=== PATIENT | male | born 1985 | race Caucasian/White ===

== ENCOUNTER 2017-02-26 08:25 | Emergency (ER) | payer OTHER ==
[~2017-02-26] VITALS: Ht 157.5 cm; Wt 36.3 kg
[~2017-02-26 08:25] MED LIST: AMOX-CLAV600 MG/5 M PO; BISAC-EVAC10 M1 PR; CARBAMAZEPINE200 M2 PO; CARBAMAZEPINE200 M6 PO; DEPAKOTE SPRIN125 M1 PO; DIVALPROEX SOD125 MG PO
--- NOTE | 2017-02-26 09:12 | ED GI/GU/ABDOMINAL COMPLAINT ---
History of Present Illness General Chief Complaint: General Adult Stated Complaint: GROIN PAIN/ABCESS Source: patient Exam Limitations: physical impairment (NONVERBAL) Vital Signs & Intake/Output Vital Signs & Intake/Output Vital Signs Date Time Temp Pulse Resp B/P B/P Pulse O2 O2 Flow FiO2 Mean Ox Delivery Rate 02/26 1703 97.9 88 18 94/68 98 Room Air 02/26 1542 98.0 90 18 96/74 99 Room Air 02/26 1406 97.8 99 20 99/62 100 Room Air 02/26 1122 97.9 101 20 92/58 98 Room Air Allergies Coded Allergies: NO KNOWN ALLERGIES (12/22/15) Reconcile Medications Carbamazepine 200 MG CPMP.12HR 2 CAP PO BID seizure (Reported) Ciprofloxacin (Cipro) 500 MG/5 ML JANET.MC.REC 5 ML PO BID UTI Divalproex Sodium (Depakote Sprinkle) 125 MG CAP.SPRINK 7 CAP PO TID seizure (Reported) Triage Note: PT TO TRIAGE VIA WHEELCHAIR WITH HIS MOTHER, PT IS NON VERBAL AT BASELINE AND HISTORY OF CP, NON STATES THAT PT STRAINS TO MOVE HIS BOWELS AND THIS AM SHE NOTED EGG SIZE LUMP IN PTS L SIDE GROIN, COULD NOT OBTAIN VITALS BESIDES TEMP DUE TO PT PULLING ARMS AWAY Triage Nurses Notes Reviewed? yes Onset: Abrupt Duration: unknown duration Timing: recent history Radiation: no radiation No Modifying Factors: none HPI: 31-year-old male comes into the emergency room for further evaluation of swelling to left groin area. Patient is nonverbal. History of MR and cerebral palsy. He does not offer any information. Mom was changing his diaper today when she noticed some swelling to his left groin. He reports that he has been making faces recently that he has been in pain she noticed since Sunday. Mom does not remember noticing this before. Denies any other associated symptoms. (Lul Garcia) Past History Travel History Traveled to [place] past 21 day No Medical History Any Pertinent Medical History? see below for history Neurological: seizure, CEREBRAL PALSY MR Mental retardation EENT: NONE Cardiovascular: NONE Respiratory: NONE Gastrointestinal: NONE Hepatic: NONE Renal: NONE Musculoskeletal: NONE Psychiatric: NONE Endocrine: NONE Blood Disorders: NONE Cancer(s): NONE SPORTS ATTORNEY/Reproductive: NONE History of MRSA: No History of VRE: No History of CDIFF: No Surgical History Surgical History: non-contributory Psychosocial History Who do you live with Mother Services at Home None What is your primary language Yakut Tobacco Use: Never used ETOH Use: denies use Illicit Drug Use: denies illicit drug use Family History Hx Contributory? No (Lul Garcia) Review of Systems Review of Systems Constitutional: Reports: no symptoms. EENTM: Reports: no symptoms. Respiratory: Reports: no symptoms. Cardiovascular: Reports: no symptoms. GI: Reports: no symptoms. Genitourinary: Reports: see HPI. Musculoskeletal: Reports: no symptoms. Skin: Reports: no symptoms. Neurological/Psychological: Reports: no symptoms. Hematologic/Endocrine: Reports: no symptoms. Immunologic/Allergic: Reports: no symptoms. All Other Systems: Reviewed and Negative (Lul Garcia) Physical Exam Physical Exam General Appearance: alert, awake Head: atraumatic Eyes: Bilateral: normal appearance. Ears, Nose, Throat, Mouth: moist mucous membrane Neck: normal inspection Respiratory: no respiratory distress Gastrointestinal: soft, PALPABLE MASS LEFT GROIN, FREE FLOATING, RIGHT TESTICLE IS SWOLLEN,NO PALPABLE LEFT TESTICLE IN SCROTAL SAC, Back: decreased range of motion Extremities: normal range of motion Neurologic/Psych: awake, alert Skin: intact, normal color Core Measures ACS in differential dx? No Sepsis Present: No Sepsis Focused Exam Completed? No (Lul Garcia) Progress Differential Diagnosis: testicular torsion, ureterolithiasis, urinary retention, urethritis, UTI/pyelo Plan of Care: Orders Procedure Date/time Status CULTURE,URINE 02/26 1625 Active URINALYSIS 02/26 09 Complete COMPREHENSIVE METABOLIC PANEL 02/26 0909 Complete CBC WITHOUT DIFFERENTIAL 02/26 0909 Complete Current Medications Sig/Leah Start time Last Medication Dose Stop Time Status Admin Ceftriaxone Sodium 1,000 MG ONCE ONE 02/26 1630 CANr (Rocephin) 02/26 1631 Laboratory Tests 02/26/17 1621: Urine Color TATY, Urine Clarity HAZY H, Urine pH 6.5, Ur Specific [place] 1.025, Urine Protein 100 H, Urine Ketones 15 H, Urine Nitrite POS H, Urine Bilirubin NEG@ICTO, Urine Urobilinogen 1.0, Ur Leukocyte Esterase NEG, Ur Microscopic SEDIMENT EXAMINED, Urine RBC 10-15 H, Urine WBC 3-5 H, Ur Epithelial Cells MOD H, Urine Bacteria MOD H, Urine Mucus MOD H, Urine Hemoglobin MOD H, Urine Glucose NEG 02/26/17 1032: Anion Gap 14, Estimated GFR > 60, BUN/Creatinine Ratio 36.0 H, Glucose 82, Calcium 9.7, Total Bilirubin 0.3, AST 19, ALT 29, Alkaline Phosphatase 74, Total Protein 6.4, Albumin 3.6, Globulin 2.8, Albumin/Globulin Ratio 1.3, CBC w Diff NO MAN DIFF REQ, RBC 3.32 L, MCV 100.5 H, MCH 33.7 H, RDW 13.6, MPV 10.6 H, Gran % 68.2, Lymphocytes % 22.4, Monocytes % 7.5, Eosinophils % 1.5, Basophils % 0.4, Absolute Granulocytes 4.0, Absolute Lymphocytes 1.3, Absolute Monocytes 0.4 , Absolute Eosinophils 0.1, Absolute Basophils 0, PUBS MCHC 33.5 Microbiology 02/26 1621 URINE ROUT: Urine Culture - RECD Diagnostic Imaging: Viewed by Me: Ultrasound. Discussed w/RAD: Ultrasound. Radiology Impression: PATIENT: CHANI DUBON PRESENT AGE: 31 PATIENT ACCOUNT NO: [id number] : 87 LOCATION: [facility] ORDERING PHYSICIAN: Lul LEBRON SERVICE DATE: 02/26/17 EXAM TYPE: US - US -TESTICULAR EXAMINATION: US SCROTUM CLINICAL INFORMATION: Rule out testicular torsion. Left testes high riding in groin. Swollen. High suspicion. COMPARISON: None TECHNIQUE: A sonogram of the scrotum was performed assessing moreno-scale appearance and color Doppler flow. Spectral analysis and Doppler interrogation was performed. FINDINGS: RIGHT: Right testicle measures 7.2 x 4.5 x 4.8 cm, volume 110.4 mL. The parenchymal echotexture is markedly heterogeneous with diffusely increased flow. There are more confluent rounded areas of hypoechogenicity without associated Doppler flow. Right epididymal head could not be seen. No hydrocele or varicocele is demonstrated. LEFT: Left testicle measures 4.5 x 1.7 x 2.8 cm, volume 15.2 mL. Parenchymal echotexture is normal. No focal testicular parenchymal lesions are visualized. Normal symmetric intratesticular flow is visualized. Left epididymal head is normal in size. No left hydrocele or varicocele is seen. IMPRESSION: 1. Enlarged right testis with heterogeneous echotexture and diffusely increased areas of Doppler flow. Some hypoechoic areas are also present without associated Doppler flow. The findings are concerning for orchitis. However, recent testicular torsion with subsequent detorsion with areas of infarction remains a possibility. A follow-up ultrasound at a later time is recommended. 2. Right epididymal head was not well seen. 3. Left testis is within normal limits. This critical result was discussed with Lul Malave on 02/26/2017 11:01 AM, and it was ascertained that the content and urgency of the report was understood at the time of direct communication. DICTATED BY: Angella Miles MD DATE/TIME DICTATED:02/26/171037 ANALYST SALES:ELIZABETH DATE/TIME TRANSCRIBED:02/26/171037 CONFIDENTIAL, DO NOT COPY WITHOUT APPROPRIATE AUTHORIZATION. <Electronically signed in Other Vendor System> SIGNED BY: Angella Miles MD 02/26/17 1106 Initial ED EKG: none Comments: 02/27/16 Patient was seen by the urologist here in the emergency room. Patient will be discharged on oral antibiotics. Patient was discussed with Dr. VAUGHN. (Ananda LEBRON,Lul) Departure Departure Disposition: HOME OR SELF CARE Condition: Stable Clinical Impression Primary Impression: Orchitis Referrals: Jolynn MCCOY,Casi Walton APRN (PCP/Family) Additional Instructions: Take ciprofloxacin as prescribed. Follow-up with urologist. Return if any concerns worsening symptoms. Please go over all results of today's visit with your primary care doctor. Contact your primary care doctor to let them know you were here in the emergency room. There may be nonspecific findings which may not be related to your visit today here in the emergency room but may require further evaluation and chronic monitoring by your primary care doctor. If you had a laceration today the chance of foreign body always remains. You should follow-up with your primary care doctor for recheck in 3-5 days for a wound check. If you had an x-ray done there is a chance that a fracture could have been missed on initial read and you should follow-up with your primary care doctor for repeat x-rays if symptoms persist. If your blood pressure was elevated here in the emergency room please have rechecked by [facility] primary care doctor within the next 48. If you were prescribed a narcotic here in the emergency room or any type of controlled substances you're not allowed to drive while taking this medication or operate any type of heavy machinery. Narcotics can make you feel lightheaded dizziness nausea and can cause constipation. You may need to berry picker machine operator a stool softener. Thank you for choosing [facility] emergency room. Please return to the emergency room immediately if you have any other concerns worsening of symptoms. Departure Forms: Customer Survey General Discharge Information Prescriptions: Current Visit Scripts Ciprofloxacin (Cipro) 5 ML PO BID #100 ML (Lul Garcia) PA/PROCUREMENT INTERN Co-Sign Statement Statement: ED Attending supervision documentation- [] I saw and evaluated the patient. I have also reviewed all the pertinent lab results and diagnostic results. I agree with the findings and the plan of care as documented in the PA's/PROCUREMENT INTERN's documentation. [X] I have reviewed the ED Record and agree with the PA's/PROCUREMENT INTERN's documentation. [] Additions or exceptions (if any) to the PAs/PROCUREMENT INTERN's note and plan are summarized below: [] (Yosvany MCCOY,Marcie) ED Attending Observation Initial Observation Note: I have seen and personally examined CHANI DUBON on 02/26/17 at 1742. I agree with the current emergency department documentation. The disposition (admission or discharge) is uncertain at this time, he needs a period of observation for the following reason(s): The ED Nurse caring for this patient has been personally informed as to what the patient is being observed for. (Lul Garcia)
[2017-02-26 10:42] LABS: ABSOLUTE BASOPHIL COUNT 0 /CUMM (0.0-0.2); ABSOLUTE EOSINOPHIL COUNT 0.1 /CUMM (0.0-0.7); ABSOLUTE LYMPH COUNT 1.3 /CUMM (1.2-3.4); ABSOLUTE MONOCYTE COUNT 0.4 /CUMM (0.10-0.60); BASOPHIL % 0.4 % (0.0-2.0); EOSINOPHIL % 1.5 % (0-5); GRANULOCYTE % 68.2 % (42.2-75.2); HEMATOCRIT 33.3 % (42-52); MEAN CORPUSCULAR HGB 33.7 PG (27.0-31.0); MEAN CORPUSCULAR HGB CONC 33.5 G/DL (33.0-37.0); MEAN CORPUSCULAR VOLUME 100.5 FL (80.0-94.0); MEAN PLATELET VOLUME 10.6 FL (7.4-10.4); PLATELET COUNT 149 /CUMM (130-400); RBC DISTRIBUTION WIDTH 13.6 % (11.5-14.5); RED BLOOD CELL CT 3.32 /CUMM (4.70-6.10); WHITE BLOOD CELL COUNT 5.9 /CUMM (4.8-10.8)
--- NOTE | 2017-02-26 11:06 | ULTRASOUND REPORT ---
EXAMINATION: US SCROTUM CLINICAL INFORMATION: Rule out testicular torsion. Left testes high riding in groin. Swollen. High suspicion. COMPARISON: None TECHNIQUE: A sonogram of the scrotum was performed assessing moreno-scale appearance and color Doppler flow. Spectral analysis and Doppler interrogation was performed. FINDINGS: RIGHT: Right testicle measures 7.2 x 4.5 x 4.8 cm, volume 110.4 mL. The parenchymal echotexture is markedly heterogeneous with diffusely increased flow. There are more confluent rounded areas of hypoechogenicity without associated Doppler flow. Right epididymal head could not be seen. No hydrocele or varicocele is demonstrated. LEFT: Left testicle measures 4.5 x 1.7 x 2.8 cm, volume 15.2 mL. Parenchymal echotexture is normal. No focal testicular parenchymal lesions are visualized. Normal symmetric intratesticular flow is visualized. Left epididymal head is normal in size. No left hydrocele or varicocele is seen. IMPRESSION: 1. Enlarged right testis with heterogeneous echotexture and diffusely increased areas of Doppler flow. Some hypoechoic areas are also present without associated Doppler flow. The findings are concerning for orchitis. However, recent testicular torsion with subsequent detorsion with areas of infarction remains a possibility. A follow-up ultrasound at a later time is recommended. 2. Right epididymal head was not well seen. 3. Left testis is within normal limits. This critical result was discussed with Lul Malave on 02/26/2017 11:01 AM, and it was ascertained that the content and urgency of the report was understood at the time of direct communication.
--- NOTE | 2017-02-26 12:11 | Cons- Urology ---
General Information and HPI Consulting Request Date of Consult: 02/26/17 Requested By: ER Reason for Consult: Abnormal R testicle on ultrasound Source of Information: family Exam Limitations: no limitations History of Present Illness: This is a 31 year old, non verbal patient with MR and cerebral paulsy. This morning his mother noted a mass in the L inguinal area. The L hemiscrotum was normal. On presentation the ER exam revealed that the mass in the L inguinal area was the L testicle, which was manipulated into the L carlota scrotum. A scrotal ultrasound showed the L testicle to be normal but the R testicle was enlarged with areas of increased blood flow and areas of decreased flow. The echotexture of the L testicle was patchey. Based on the ultrasound appearance the differential dx was orchitis vs intermittent torsion. Of note, according to the mother he was straining significantly to have a bowel movement recently. Allergies/Medications Allergies: Coded Allergies: NO KNOWN ALLERGIES (12/22/15) Home Med List: Carbamazepine 200 MG CPMP.12HR 2 CAP PO BID seizure (Reported) Divalproex Sodium (Depakote Sprinkle) 125 MG CAP.SPRINK 7 CAP PO TID seizure (Reported) Past History Medical History Neurological: seizure, CEREBRAL PALSY MR Mental retardation EENT: NONE Cardiovascular: NONE Respiratory: NONE Gastrointestinal: NONE Hepatic: NONE Renal: NONE Musculoskeletal: NONE Psychiatric: NONE Endocrine: NONE Blood Disorders: NONE Cancer(s): NONE DIRECTOR SMB SALES/Reproductive: NONE Surgical History Pertinent Surgical History: non-contributory Psychosocial History Who Do You Live With? parent Services at Home: None Primary Language: Indonesian ETOH Use: denies use Illicit Drug Use: denies illicit drug use Functional Ability ADLs Needs Assist: dressing, eating, toileting, bathing. Ambulation: non-ambulatory IADLs Needs Assist: shopping, housework, finances, food prep, telephone, transportation, medication admin. Exam & Diagnostic Data Vital Signs and I&O Vital Signs Date Time Temp Pulse Resp B/P B/P Pulse O2 O2 Flow FiO2 Mean Ox Delivery Rate 02/26 1122 97.9 101 20 92/58 98 Room Air Intake & Output 02/26 1600 02/26 0800 02/26 0000 02/25 1600 02/25 0802/25 0000 Intake Total Output Total Balance Patient 79 lb 15.99 oz Weight Back: No CVA tenderness Abd: soft and nontender Genitalia: condom cath in place. L testicle normal. R testicle enlarged and firm. Epididymis appears posterior and is enlarged and firm Physical Exam: Laboratory Tests 02/26 1032 Chemistry Sodium (137 - 145 mmol/L) 151 H Potassium (3.5 - 5.1 mmol/L) 3.7 Chloride (98 - 107 mmol/L) 109 H Carbon Dioxide (22 - 30 mmol/L) 28 Anion Gap (5 - 16) 14 BUN (9 - 20 mg/dL) 18 Creatinine (0.7 - 1.2 mg/dL) 0.5 L Estimated GFR (>60 ml/min) > 60 BUN/Creatinine Ratio (7 - 25 %) 36.0 H Glucose (65 - 99 mg/dL) 82 Calcium (8.4 - 10.2 mg/dL) 9.7 Total Bilirubin (0.2 - 1.3 mg/dL) 0.3 AST (17 - 59 U/L) 19 ALT (21 - 72 U/L) 29 Alkaline Phosphatase (< 127 U/L) 74 Total Protein (6.3 - 8.2 g/dL) 6.4 Albumin (3.5 - 5.0 g/dL) 3.6 Globulin (1.9 - 4.2 gm/dL) 2.8 Albumin/Globulin Ratio (1.1 - 2.2 %) 1.3 Hematology CBC w Diff NO MAN DIFF REQ WBC (4.8 - 10.8 /CUMM) 5.9 RBC (4.70 - 6.10 /CUMM) 3.32 L Hgb (14.0 - 18.0 G/DL) 11.2 L Hct (42 - 52 %) 33.3 L MCV (80.0 - 94.0 FL) 100.5 H MCH (27.0 - 31.0 PG) 33.7 H RDW (11.5 - 14.5 %) 13.6 Plt Count (130 - 400 /CUMM) 149 MPV (7.4 - 10.4 FL) 10.6 H Gran % (42.2 - 75.2 %) 68.2 Lymphocytes % (20.5 - 51.1 %) 22.4 Monocytes % (1.7 - 9.3 %) 7.5 Eosinophils % (0 - 5 %) 1.5 Basophils % (0.0 - 2.0 %) 0.4 Absolute Granulocytes (1.4 - 6.5 /CUMM) 4.0 Absolute Lymphocytes (1.2 - 3.4 /CUMM) 1.3 Absolute Monocytes (0.10 - 0.60 /CUMM) 0.4 Absolute Eosinophils (0.0 - 0.7 /CUMM) 0.1 Absolute Basophils (0.0 - 0.2 /CUMM) 0 PUBS MCHC (33.0 - 37.0 G/DL) 33.5 Assessment/Plan Assessment/Plan Imp: 1. Normal L testicle 2. Probable R epididymo-orchitis Plan: 1. U/A and C&S 2. OK to send home on po cipro 3. f/u in my office in 2-3 weeks Consult Acknowledgment - Thank you for your consult request.
[2017-02-26] MEDS ORDERED: CIPRO500 MG/51 PO (15:59)
[2017-02-26 17:03] VITALS: BP 94/68
== END 2017-02-26 17:12 ==
LOC: ERH 08:25
PROVIDERS: Physician Assistant Medical
DX: N45.2 Orchitis (principal)
CPT/HCPCS: 81001; 87086; 96372; 96374; J0696

== ENCOUNTER 2017-08-05 16:40 | Inpatient (IN) | payer OTHER ==
[~2017-08-05] VITALS: Ht 154.9 cm; Wt 38.2 kg
[~2017-08-05 16:40] MED LIST changes: +CIPRO500 MG/51 PO
--- NOTE | 2017-08-05 18:47 | ED GENERAL ADULT ---
History of Present Illness General Chief Complaint: General Adult Stated Complaint: PER MOM: FEELS WARM, MOANING,NOT HIMSELF Source: family Exam Limitations: patient non-verbal Vital Signs & Intake/Output Vital Signs & Intake/Output Vital Signs Date Time Temp Pulse Resp B/P B/P Pulse O2 O2 Flow FiO2 Mean Ox Delivery Rate 08/06 2225 90 08/06 2223 100/50 08/06 2213 98.2 110 18 92/51 100 08/06 1435 97.5 64 20 107/66 98 Room Air 08/06 0630 97.3 72 14 96/62 98 Room Air 08/06 0144 97.6 70 14 94/60 99 Room Air ED Intake and Output 08/07 0000 08/06 1200 Intake Total 1760 600 Output Total 850 550 Balance 910 50 Intake, IV 560 600 Intake, Oral 1200 Number 4 Bowel Movements Output, Urine 850 550 Patient 84 lb 2 oz Weight Weight Bed scale Measurement Method Initial labs are consistent with sepsis physiology Allergies Coded Allergies: NO KNOWN ALLERGIES (12/22/15) Reconcile Medications Carbamazepine 200 MG CPMP.12HR 2 CAP PO BID seizure (Reported) Divalproex Sodium (Depakote Sprinkle) 125 MG CAP.SPRINK 7 CAP PO TID seizure (Reported) Triage Note: PT TO ER W/ MOTHER C/C "NOT ACTING HIMSELF". PT WITH HX OF MR, CEREBRAL PALSY AND SEIZURE DO. MOTHER STATES HE IS NON-VERBAL TO BASELINE. MOTHER STATES PATIENT HAS BEEN DROOLING, COUGHING, FEELS WARM AND IS MORE DROWSY THAN USUAL. TEMP 100.7. HAS HAD ASPIRATION PNA IN PAST. Triage Nurses Notes Reviewed? yes Unable To Obtain Hx Due To: patient nonverbal Onset: Gradual Duration: hour(s): Timing: ongoing Severity: moderate No Modifying Factors: none HPI: This is a 31-year-old male with history of cerebral palsy, mental retardation, seizure disorder, presenting to the emergency department with poor p.o. intake and "not acting like himself", according to mother. Patient was at a respite since , was reported to have vomited today and potentially aspirated. Upon arrival, he is febrile to 100.7F and tachycardic to the 130s with a blood pressure in the 100s systolic range. He is a soft, nontender abdomen and diminished breath sounds bilateral bases. According to the mother, patient has had prior aspiration pneumonia events in the past. Patient is nonverbal at baseline and history is provided by mother. (Reed Osuna MD) Past History Travel History Traveled to [place] past 21 day No Medical History Any Pertinent Medical History? see below for history Neurological: seizure, CEREBRAL PALSY MR Mental retardation EENT: NONE Cardiovascular: NONE Respiratory: NONE Gastrointestinal: NONE Hepatic: NONE Renal: NONE Musculoskeletal: NONE Psychiatric: NONE Endocrine: NONE Blood Disorders: NONE Cancer(s): NONE NON GARMENT SEWING MACHINE OPERATOR/Reproductive: NONE History of MRSA: No History of VRE: No History of CDIFF: No Surgical History Surgical History: non-contributory Psychosocial History Who do you live with Mother Services at Home None What is your primary language Bangladeshi Tobacco Use: Never used Family History Hx Contributory? No (Reed Osuna MD) Review of Systems Review of Systems Constitutional: Reports: fever, malaise, weakness. EENTM: Reports: no symptoms. Respiratory: Reports: no symptoms. Cardiovascular: Reports: no symptoms. GI: Reports: vomiting. Genitourinary: Reports: no symptoms. Musculoskeletal: Reports: no symptoms. Skin: Reports: no symptoms. Neurological/Psychological: Reports: no symptoms, see HPI. (Reed Osuna MD) Physical Exam Physical Exam General Appearance: anxious, thin Head: atraumatic, large head, thin face, does not track with eyes Eyes: Bilateral: normal appearance. Ears, Nose, Throat: normal pharynx, normal ENT inspection Neck: normal inspection, supple Respiratory: breath sounds diminished in bilateral bases Cardiovascular: regular rate/rhythm, tachycardia Gastrointestinal: normal bowel sounds, soft, non-tender Rectal: normal exam, stage 1 decub to sacrum Back: normal inspection, normal range of motion Extremities: normal inspection, no edema Neurologic/Psych: awake, alert, non-verbal, moving all extremities, does not follow commands Skin: intact, normal color, warm and moist Core Measures ACS in differential dx? No CVA/TIA Diagnosis: No Sepsis Present: Yes Sepsis Focused Exam Completed? Yes (Reed Osuna MD) Progress Differential Diagnoses I considered the following diagnoses in my evaluation of the patient: Sepsis secondary to aspiration pneumonia, some concern for occult urinary tract infection given chronic incontinence. 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 Low concern for acute intra-abdominal infection at this time given soft, nontender abdomen, however given history of poor appetite and episode of vomiting, will maintain high index of suspicion. Plan of Care: Orders Procedure Date/time Status FOLIC ACID 08/07 599 Active CBC WITHOUT DIFFERENTIAL 08/07 599 Active BASIC ELECTROLYTES PLUS BUN&CR 08/07 599 Active VITAMIN B12 08/07 06 Active Regular Diet 08/06 L Complete Regular Diet 08/06 D Active Coronado, Insertion/Removal/Asses 08/06 1843 Active Seizure Precautions 08/06 1733 Active Change service to 08/06 0812 Active TSH REFLEX 08/06 0733 Complete CORTISOL AM 08/06 0733 Complete CBC WITHOUT DIFFERENTIAL 08/06 599 Complete BASIC ELECTROLYTES PLUS BUN&CR 08/06 599 Complete Precautions 08/06 UNK Active PHARMACY COMMUNICATION FORM 08/06 UNK Active Current Medications Sig/Leah Start time Last Medication Dose Stop Time Status Admin Carbamazepine 400 MG BID 08/06 2100 CAN (Tegretol-XR) Carbamazepine 200 MG Q6H 08/06 2045 AC 08/06 (Tegretol Suspension 2131 100MG Per 5 Ml) Heparin Sodium 5,000 UNIT Q8 08/06 0600 AC 08/06 (Porcine) 2131 Ampicillin Sodium/ 1,500 MG Q6H 08/06 0300 AC 08/06 Sulbactam Sodium 2131 (Unasyn) Sodium Chloride 100 ML (Normal Saline 0.9%) Valproate Sodium 875 MG Q8H 08/06 0200 AC 08/06 (Depacon 500MG/5ML 1724 Inj) Sodium Chloride 50 ML (Normal Saline 50ML Bag) Laboratory Tests 08/06/17 0800: Cortisol AM Sample Cancelled 08/06/17 0733: Anion Gap 8, Estimated GFR > 60, BUN/Creatinine Ratio 25.0, TSH &T3 &Free T4 Intrp 0.920, Cortisol AM Sample 18.7, CBC w Diff MAN DIFF ORDERED, RBC 2.67 L, MCV 99.4 H, MCH 33.3 H, MCHC 33.5, RDW 14.6 H, MPV 10.1, Gran % 72.7, Lymphocytes % 18.7 L, Monocytes % 8.3, Eosinophils % 0.1, Basophils % 0.2, Absolute Granulocytes 5.1, Segmented Neutrophils 42 L, Band Neutrophils 32 H, Absolute Lymphocytes 1.3, Lymphocytes 19 L, Monocytes 7, Absolute Monocytes 0.6 , Absolute Eosinophils 0, Absolute Basophils 0, Platelet Estimate DECREASED, Polychromasia 1+, Basophilic Stippling 1+, Anisocytosis 1+ 08/06/17 0600: TSH &T3 &Free T4 Intrp Cancelled Patient will require broad-spectrum antibiotics, repeat lactate, IV fluids, labs , likely admission for sepsis. No indication for pressors at this time but will frequently reevaluate. Patient defervescence with treatment here, heart rate improves with IV hydration , labs reveal significant bandemia, normal kidney function. No severe metabolic derangements are noted. Chest x-ray is noncontributory as is the urinalysis. Given this, will pursue CT chest abdomen pelvis with IV contrast in search of alternate source. Case discussed with inpatient hospitalist. She agrees that patient will need admission for IV antibiotics and further management, she would like patient to receive 3 boluses of IV fluids here to establish his hemodynamic status in terms of need for higher level of care. SBP is established as appropriate for Gen Med. Will admit to that service. Chest x-ray is consistent with a left lobe pneumonia, will treat as healthcare associated. Initial ED EKG: none (Reed Osuna MD) Departure Departure Time of Disposition: 2303 Disposition: STILL A PATIENT Condition: Stable Clinical Impression Primary Impression: HCAP (healthcare-associated pneumonia) Referrals: Erica Valladares MD (PCP/Family) Departure Forms: Customer Survey General Discharge Information Admission Note Spoke With: Shantell Lopez MD Documentation of Exam: Documentation of any treatments & extenuating circumstances including Concerns Regarding Discharge (functional status, medication knowledge or non-compliance, living conditions, etc.) that warrant an admission rather than observation: IV antibiotics, IV fluids, close monitoring of vital signs, monitoring of urine output, possible central line placement, possible IV pressors. (Reed Osuna MD) Resident Co-Sign Statement Statement: ED Attending supervision documentation- [x] I saw and evaluated the patient. I have also reviewed all the pertinent lab results and diagnostic results. I agree with the findings and the plan of care as documented in the Resident's documentation. [] I have reviewed the ED Record and agree with the Resident's documentation. [] Additions or exceptions (if any) to the Resident's note and plan are summarized below: [] (Keesha MCCOY,Kenny Crespo) Critical Care Note Critical Care Note Critical Care Time: 30-74 min (sepsis resuscitation) (Reed Osuna MD) ED Attending Observation Initial Observation Note: I have seen and personally examined CHANI SAENZ on 08/05/17 at 2305. I agree with the current emergency department documentation. The disposition (admission or discharge) is uncertain at this time, he needs a period of observation for the following reason(s): The ED Nurse caring for this patient has been personally informed as to what the patient is being observed for. (Reed Osuna MD) Initial ED EKG: none Departure Departure Time of Disposition: 2303 Disposition: STILL A PATIENT Condition: Stable Clinical Impression Primary Impression: HCAP (healthcare-associated pneumonia) Referrals: Erica Valladares MD (PCP/Family) Departure Forms: Customer Survey General Discharge Information Admission Note Spoke With: Shantell Lopez MD Documentation of Exam: Documentation of any treatments & extenuating circumstances including Concerns Regarding Discharge (functional status, medication knowledge or non-compliance, living conditions, etc.) that warrant an admission rather than observation: IV antibiotics, IV fluids, close monitoring of vital signs, monitoring of urine output, possible central line placement, possible IV pressors. Critical Care Note Critical Care Note Critical Care Time: 30-74 min (sepsis resuscitation) ED Attending Observation Initial Observation Note: I have seen and personally examined CHANI SAENZ on 08/05/17 at 2305. I agree with the current emergency department documentation. The disposition (admission or discharge) is uncertain at this time, he needs a period of observation for the following reason(s): The ED Nurse caring for this patient has been personally informed as to what the patient is being observed for.
--- NOTE | 2017-08-05 19:05 | RADIOLOGY REPORT ---
EXAMINATION: XR PORTABLE CHEST CLINICAL INFORMATION: Febrile, lethargic. COMPARISON: Chest radiography dated 12/22/2015. TECHNIQUE: Portable frontal view of the chest was obtained. FINDINGS: The lungs are well-expanded. No focal consolidation or pleural effusion. The cardiomediastinal silhouette is within normal limits. No pneumothorax. No engorgement of central pulmonary vessels. No acute osseous abnormalities. IMPRESSION: Unremarkable examination.
[2017-08-05 19:43] LABS: ABSOLUTE BASOPHIL COUNT 0 /CUMM (0.0-0.2); ABSOLUTE EOSINOPHIL COUNT 0 /CUMM (0.0-0.7); ABSOLUTE GRANULOCYTE CT 7.6 /CUMM (1.4-6.5); ABSOLUTE LYMPH COUNT 0.6 /CUMM (1.2-3.4); ABSOLUTE MONOCYTE COUNT 0.9 /CUMM (0.10-0.60); BASOPHIL % 0 % (0.0-2.0); EOSINOPHIL % 0 % (0-5); GRANULOCYTE % 83.4 % (42.2-75.2); HEMATOCRIT 31.1 % (42-52); MEAN CORPUSCULAR HGB 33.3 PG (27.0-31.0); MEAN CORPUSCULAR HGB CONC 33.8 G/DL (33.0-37.0); MEAN CORPUSCULAR VOLUME 98.6 FL (80.0-94.0); MEAN PLATELET VOLUME 9.9 FL (7.4-10.4); PLATELET COUNT 182 /CUMM (130-400); RBC DISTRIBUTION WIDTH 14.4 % (11.5-14.5); RED BLOOD CELL CT 3.16 /CUMM (4.70-6.10); WHITE BLOOD CELL COUNT 9.1 /CUMM (4.8-10.8)
--- NOTE | 2017-08-05 22:32 | CT SCAN REPORT ---
EXAMINATION: CT CHEST, ABDOMEN AND PELVIS WITH CONTRAST CLINICAL INFORMATION: Fever, altered mental status. COMPARISON: CT abdomen and pelvis dated 12/22/2015. TECHNIQUE: Multidetector volumetric imaging was performed from the thoracic inlet through the pubic symphysis following the administration of: Oral contrast: None. Intravenous contrast: 95 mL Optiray 320 No contrast reaction reported Sagittal and coronal reformatted images were obtained on the technologist workstation. Total exam dose-length product 389 mGy-cm FINDINGS: CHEST: LUNGS: There is patchy consolidation in the left lung predominating in the lung base also with patchy groundglass nodules in the left upper lobe. No pulmonary masses. No pleural effusion or pneumothorax. MEDIASTINUM: Normal heart size. No pericardial effusion. No hilar or mediastinal lymphadenopathy. VASCULAR: No thoracic aortic aneurysm or dissection. Central pulmonary arteries opacify normally. ABDOMEN/PELVIS: LIVER, GALLBLADDER, AND BILIARY TREE: The liver is normal in size, shape, and attenuation. No focal hepatic lesion or biliary ductal dilatation is present. The gallbladder is unremarkable with no evidence of radiopaque gallstones, gallbladder wall thickening, or obvious pericholecystic inflammatory changes. PANCREAS: Normal; no mass or surrounding fluid. SPLEEN: Normal size. No focal lesion. ADRENAL GLANDS: Normal; no mass. KIDNEYS AND URETERS: The kidneys are normal in size, shape, and attenuation. No hydronephrosis, hydroureter, or calculi. GASTROINTESTINAL TRACT: Stomach and small bowel non-dilated. No colonic wall thickening or pericolonic inflammatory changes. Normal appendix. ABDOMINAL WALL: No significant hernia is appreciated. LYMPHOVASCULAR STRUCTURES: No lymphadenopathy. The aorta is unremarkable. BLADDER: The bladder is decompressed with a Coronado catheter. PELVIC VISCERA: Unremarkable. OSSEOUS STRUCTURES: No acute or suspicious osseous abnormality. IMPRESSION: 1. Patchy consolidation in the left lung, predominantly in the lower lobe, concerning for pneumonia. 2. No acute abnormalities in the abdomen or pelvis.
--- NOTE | 2017-08-06 | History & Physical ---
Betty MCCOY,Artis 08/06/17 0000: General Information and HPI MD Statement: I have seen and personally examined CHANI DUBON and documented this H&P. The patient is a 31 year old M who presented with a patient stated chief complaint of [pneumonia]. Source of Information: family, old records Exam Limitations: unable to give history, history obtained from mother History of Present Illness: Patient is a 31-year-old male with a PMH significant for cerebral palsy, mental retardation, seizure disorder, aspiration pneumonia in 2016, who is brought in by his mother for concerns of fever and altered mental status. Patient is nonverbal at baseline and history was obtained solely from the patient's mother at bedside. She reports that she dropped the patient off at a respite home on , 3 days prior to presentation. At that time he was in his usual state of health. The report that she got from the staff of the respite home was that he was also in his usual state of health prior to going to sleep at the evening before presentation. On the morning of presentation the respite home staff noted bilious-appearing fluid on the patient's bed sheets and were concerned that he may have vomited overnight. Patient's mother picked him up from the respite home and noted that he felt warm and was having intermittent spells of shaking chills. He was also moaning throughout the day and was very lethargic, more so than baseline. She also noted that he had some eye twitching which has been an indication in the past that he has an infection. The patient's mother denies any recent diarrhea, vomiting other than the morning of presentation, or change in diet. The patient's last seizure was approximately 2 weeks ago and his seizures are intermittent despite medication however he may go upwards of 6 months without any seizures. His seizures very and include absence type seizures with staring episodes or tonic-clonic seizures. The rest of the review of systems is unobtainable as the patient is nonverbal. Allergies/Medications Allergies: Coded Allergies: NO KNOWN ALLERGIES (12/22/15) Home Med list Carbamazepine 200 MG CPMP.12HR 2 CAP PO BID seizure (Reported) Divalproex Sodium (Depakote Sprinkle) 125 MG CAP.SPRINK 7 CAP PO TID seizure (Reported) Past History Travel History Traveled to [place] past 21 day No Medical History Neurological: seizure, CEREBRAL PALSY MR Mental retardation EENT: NONE Cardiovascular: NONE Respiratory: NONE Gastrointestinal: NONE Hepatic: NONE Renal: NONE Musculoskeletal: NONE Psychiatric: NONE Endocrine: NONE Blood Disorders: NONE Cancer(s): NONE [employer]ILDER/Reproductive: NONE History of MRSA: No History of VRE: No History of CDIFF: No Surgical History Surgical History: non-contributory Past Family/Social History Psychosocial History Where do you live? Home Who Do You Live With? parent Services at Home: None Primary Language: nonverbal Smoking Status: Never Smoked ETOH Use: denies use Illicit Drug Use: denies illicit drug use Living Will? no Functional Ability ADLs Needs Assist: dressing, eating, toileting, bathing. Ambulation: non-ambulatory IADLs Needs Assist: shopping, housework, finances, food prep, telephone, transportation, medication admin. Review of Systems Review of Systems Constitutional: Reports: see HPI, chills, fever. GI: Reports: vomiting. Denies: constipation, diarrhea, distention. Exam & Diagnostic Data Last 24 Hrs of Vital Signs/I&O Vital Signs Date Time Temp Pulse Resp B/P B/P Pulse O2 O2 Flow FiO2 Mean Ox Delivery Rate 08/06 0144 97.6 70 14 94/60 99 Room Air 08/06 0123 96.3 73 18 93/59 98 Room Air 08/06 0023 96.0 71 18 92/59 99 Room Air 08/05 2321 96.0 72 18 91/59 98 Room Air 08/05 2303 76 20 85/50 100 Room Air 08/05 2219 96.5 79 18 86/54 99 Room Air 08/05 2036 98.9 111 20 98/56 99 Room Air 08/05 1826 130 20 101/59 98 Room Air 08/05 1657 100.7 130 22 105/66 Intake & Output 08/06 0800 08/06 0000 08/05 1600 Intake Total Output Total Balance Patient 84 lb 2 oz 79 lb 15.99 oz Weight Weight Bed scale Reported by Patient Measurement Method Physical Exam General Appearance lethargic but arousable Skin small, stage 1 pressure injuries on the L buttock Skin Temp/Moisture Exam: Warm/Dry Sepsis Skin Exam (color): Normal for Ethnicity HEENT Atraumatic, patient did not cooperate with occular or oral exam Cardiovascular Regular Rate, Normal S1, Normal S2 Lungs patient did not cooperate with respiratory exam, breath sounds were diminished Abdomen Normal Bowel Sounds, Soft, No Tenderness Neurological patient does not follow commands, would open eyes spontaneously, but rest of neuro exam could not be performed Extremities No Clubbing, No Cyanosis, No Edema Sepsis Peripheral Pulse Location: Radial Sepsis Peripheral Pulse Exam: Normal Sepsis Cap Refill Exam: <2 Sec Body Front and Back (Adult) 1) small, stage 1 pressure injury Last 24 Hrs of Labs/Zach: Laboratory Tests 08/05/172134: Lactic Acid 0.7 08/05/172023: Lactic Acid Cancelled 08/05/172009: Urine Color YEL, Urine Clarity HAZY H, Urine pH 6.5, Ur Specific [place] 1.020, Urine Protein NEG, Urine Ketones NEG, Urine Nitrite NEG, Urine Bilirubin NEG, Urine Urobilinogen 2.0 H, Ur Leukocyte Esterase NEG, Ur Microscopic SEDIMENT EXAMINED, Urine RBC 3-5, Urine WBC 1-3 H, Urine Mucus FEW, Urine Hemoglobin SMALL H, Urine Glucose NEG 08/05/171904: Anion Gap 13, Estimated GFR > 60, BUN/Creatinine Ratio 26.0 H, Glucose 100 H, Lactic Acid 6.1 H, Calcium 9.5, Total Bilirubin 0.4, AST 24, ALT 17 L, Alkaline Phosphatase 92, Total Protein 6.8, Albumin 3.6, Globulin 3.2, Albumin/ Globulin Ratio 1.1, CBC w Diff MAN DIFF ORDERED, RBC 3.16 L, MCV 98.6 H, MCH 33.3 H, MCHC 33.8, RDW 14.4, MPV 9.9, Gran % 83.4 H, Lymphocytes % 6.6 L, Monocytes % 10.0 H, Eosinophils % 0, Basophils % 0, Absolute Granulocytes 7.6 H, Segmented Neutrophils 58, Band Neutrophils 23 H, Absolute Lymphocytes 0.6 L , Lymphocytes 10 L, Monocytes 8, Absolute Monocytes 0.9 H, Absolute Eosinophils 0, Absolute Basophils 0, Metamyelocytes 1, Platelet Estimate ADEQUATE, Polychromasia 1+, Hypochromic-Microcytic 2+, Basophilic Stippling 1+, Anisocytosis 1+, Macrocytic Cells 1+, Carbamazepine 8.6 Microbiology 08/06 58 LOWER RESP: Respiratory Culture - ORD 08/06 58 LOWER RESP: Gram Stain - ORD 08/05 2014 URINE ROUT: Urine Culture - RECD 08/05 1949 BLOOD: Blood Culture - RECD 08/05 1904 BLOOD: Blood Culture - RECD Diagnostic Data CXR Results The lungs are well-expanded. No focal consolidation or pleural effusion. The cardiomediastinal silhouette is within normal limits. No pneumothorax. No engorgement of central pulmonary vessels. No acute osseous abnormalities. IMPRESSION: Unremarkable examination. Other Results CT chest/abd/pelvis CHEST: LUNGS: There is patchy consolidation in the left lung predominating in the lung base also with patchy groundglass nodules in the left upper lobe. No pulmonary masses. No pleural effusion or pneumothorax. MEDIASTINUM: Normal heart size. No pericardial effusion. No hilar or mediastinal lymphadenopathy. VASCULAR: No thoracic aortic aneurysm or dissection. Central pulmonary arteries opacify normally. ABDOMEN/PELVIS: LIVER, GALLBLADDER, AND BILIARY TREE: The liver is normal in size, shape, and attenuation. No focal hepatic lesion or biliary ductal dilatation is present. The gallbladder is unremarkable with no evidence of radiopaque gallstones, gallbladder wall thickening, or obvious pericholecystic inflammatory changes. PANCREAS: Normal; no mass or surrounding fluid. SPLEEN: Normal size. No focal lesion. ADRENAL GLANDS: Normal; no mass. KIDNEYS AND URETERS: The kidneys are normal in size, shape, and attenuation. No hydronephrosis, hydroureter, or calculi. GASTROINTESTINAL TRACT: Stomach and small bowel non-dilated. No colonic wall thickening or pericolonic inflammatory changes. Normal appendix. ABDOMINAL WALL: No significant hernia is appreciated. LYMPHOVASCULAR STRUCTURES: No lymphadenopathy. The aorta is unremarkable. BLADDER: The bladder is decompressed with a Coronado catheter. PELVIC VISCERA: Unremarkable. OSSEOUS STRUCTURES: No acute or suspicious osseous abnormality. IMPRESSION: 1. Patchy consolidation in the left lung, predominantly in the lower lobe, concerning for pneumonia. 2. No acute abnormalities in the abdomen or pelvis. Assessment/Plan Assessment: Patient is a 31-year-old male with a PMH significant for cerebral palsy, mental retardation, seizure disorder, aspiration pneumonia in 2016, who is brought in by his mother for concerns of fever and altered mental status. Patient has subjective fevers, shaking chills and was very lethargic throughout the day, he also had an episode of emesis this morning. CT chest shows patchy consolidation of the left lung. Vital signs on presentation: T-max 100.7, P 130 (trended down to 70s), RR 22, BP 105/66, pulse ox 98% on room air Labs: WBC 9.1, H/H 10.5/31.1, platelets 182, sodium 145, potassium 4.2, chloride 102, CO2 30, BUN 13, creatinine 0.5, glucose 100, lactic acid 6.1 (trended down to 0.7 with IV hydration), carbamazepine level 8.6 Problem list #Sepsis secondary to pneumonia, likely aspiration although does not fit the typical anatomic distribution, sirs criteria positive for fever, tachycardia, tachypnea, of note patient was also mildly hypotensive in the ED, BP responded well to IV hydration #Chronic medical problems including seizure disorder, cerebral palsy Plan -Admit to general medicine -Low threshold to transfer to ICU if patient becomes hypotensive -IV Unasyn for suspected aspiration pneumonia -Aspiration precautions -Follow swallow evaluation when patient becomes more alert, n.p.o. for now -IV Depakote, can continue regular home regimen of p.o. anti-epileptic medications when patient is alert and able to tolerate p.o. diet -Of note patient's mother is concerned that he will be a danger to himself when more alert and able to move, and therefore we will request a one-to-one sitter if a family member cannot be at bedside -Continue gentle IV hydration Diet: N.p.o. pending formal swallow evaluation DVT prophylaxis: Subcutaneous heparin, Alps CODE STATUS: Full code As Ranked By This Provider Problem List: 1. Sepsis 2. Pneumonia Core Measures/Misc (11/05) Acute Coronary Syndrome ACS Diagnosis: No Congestive Heart Failure Congestive Heart Failure Diagnosis No Cerebrovascular Accident CVA/TIA Diagnosis: No VTE (View Protocol) VTE Risk Factors Immobility No Mechanical VTE Prophylaxis d/t N/A MechProphylax Ordered No VTE Pharm Prophylaxis d/t NA PharmProphylax ordered Sepsis (View protocol) Sepsis Present: Yes If YES complete Sepsis Event Note If YES complete Sepsis Event Note [facility] 0338: Core Measures/Misc (11/05) Sepsis (View protocol) If YES complete Sepsis Event Note If YES complete Sepsis Event Note Resident Review Statement Resident Statement: examined this patient, discussed with internal grinding machine operator, agreed with internal grinding machine operator Other Findings: The patient is nonverbal at baseline, the history was obtained from the mother at bedside. HPI: 31/M with PMH significant for cerebral palsy, mental retardation, seizure disorder last episode 2 weeks ago, aspiration pneumonia 2 year ago, and aphasia, who was brought in by his mother because of subjective fever and "he is not himself". The mother last saw patient 3 days before admission when she dropped him off at a respite home, he was in normal state of health. When she picked him up from the respite home on the morning of admission the staff told her he had vomited overnight. She noticed that he felt warm to the touch and was moaning, lethargic and shaking because of which she decided to visit the ED space showed that he had a similar symptom in 2016 and was diagnosed with aspiration pneumonia and treated with IV Unasyn. Vitals:T.max 100.7, SBP was 80s improved to 90s after fluid, RR 22, HR 130s improved to 70s after fluid , O2 98% on RA Labs: No leukocytosis, macrocytic anemia, normal electrolytes, normal renal function, lactic acid 6.1 improved to 0.7 after fluid, normal liver function tests, no significant UA, carbamazepine level of 8.6. Imaging: CXR was unremarkable. CT chest, abdomen, and pelvis: Suggestive of left lung base pneumonia and showed no acute abdominal or pelvic abnormalities. Assessment: Patient has a long history of seizure with the last episode being 2 weeks ago. He presented with symptoms suggestive of sepsis with pneumonia being most likely the source of infection. The patient has a history of aspiration pneumonia, yesterday he had an episode of vomiting. It's not clear if he had an episode of seizure or possibly this is another episode of aspiration pneumonia. We will treat with IV Unasyn pending pancultures. The patient is currently not able to take by mouth medications, we will give valproic acid IV and start carbamazepine once he can tolerate oral intake. Problem list * Sepsis secondary to aspiration pneumonia * Seizure * Cerebral palsy Plan * Admit to general medicine floor * Send for panculture * Start IV Unasyn for suspected aspiration pneumonia * Aspiration precaution * Seizure precaution * Nothing by mouth pending swallow eval in morning * Continue IV valproic acid * Start carbamazepine home dose once able tolerate oral intake * IV fluids @ 75 ml/h until tolerates oral intake * If the mother will leave bedside we will order safety monitor -Nothing by mouth -DVT prophylaxis with Alps if able to place and subcutaneous heparin -KORY Lopez MD, [facility] 08/06/17 0424: Core Measures/Misc (11/05) Sepsis (View protocol) If YES complete Sepsis Event Note If YES complete Sepsis Event Note Attending MD Review Statement Attending Statement Attending MD Statement: examined this patient, discuss w/resident/PA/BULLDOGGER, agreed w/resident/PA/BULLDOGGER, reviewed images, amended to note Attending Assessment/Plan: 31 yo M with h/o cerebral palsy, mental retardation, seizure disorder, nonverbal at baseline, who lives at home with his mother, but has been at a respite home ( while his mother was away) for the weekend, is brought in for evaluation of lethargy and 'patient not being himself'. According to history provided by mother, patient was reported to have vomited overnight, as staff noted bile in his bed. In the morning, he was moaning, lethargic, felt warm, had shaking chills and was not his normal self. No history of abdominal pain, diarrhea, cough or phlegm. Vitals: Tmax 100.7, HR 78-130's, BP 101/59 --> 98/56 --> 86/54 --> 93/59, sats 98% RA. Exam as above. Labs: WBC 9.1, H/H 10.5/31.3, Plt 182, bands 23, creat 0.5, lactic acid 6.1, glucose 100, LFTs normal. UA not suggestive of UTI. Carbamazepine levels 8.6. CXR: no consolidation, effusion. CT chest/ abdomen/ pelvis with contrast: patchy consolidation in left lung in the lower lobe, concerning for pneumonia. No acute abnormality of abdomen or pelvis. Assessment and plan: 1. Severe sepsis 2. Aspiration pneumonia of left lower lobe 3. Hypotension 2/2 to sepsis - improving 4. History of cerebral palsy, MR and seizure disorder - Admit to General medicine - Aspiration and fall precautions - Panculture - IV Unasyn Q6 - NPO for now until patient more awake, alert - IV fluids, trend lactic acid - Maintain SBP ~ 90's (patient received 3L NS bolus in ER) - Check AM cortisol level, TSH, free T4 - If persistently hypotensive, consider ICU transfer for pressors - Change depakote to IV - Resume carbamazepine when patient able to tolerate PO DVT ppx Lovenox. Full code.
[2017-08-06 01:44] VITALS: BP 94/60
--- NOTE | 2017-08-06 01:45 | Admission Certification ---
Admission Certification Certification Statement - As attending physician, I certify that at the time of - admission, based on clinical presentation, severity of - symptoms, need for further diagnostic testing and - therapeutic interventions, and risk of adverse outcomes - without in-hospital treatment, in my clinical assessment, - this patient requires an acute hospital stay for a minimum - of two nights or longer. I have also considered psychsocial - factors such as support system, advanced age, financial - issues, cognitive issues, and failed out-patient treatments, - past re-admission history, safety of patient, and lack of - compliance as applicable. Specific rationale supporting this admission is: Severe sepsis, Aspiration pneumonia
[2017-08-06 06:30] VITALS: BP 96/62
--- NOTE | 2017-08-06 08:10 | PN- Housestaff ---
VenancioHe castillobrandyn 08/06/17 0809: Subjective Follow-up For: 1. Severe sepsis-resolved 2. Aspiration pneumonia of left lower lobe 3. Hypotension 2/2 to sepsis - improving 4. History of cerebral palsy, MR and seizure disorde Complaints: pt unable to provide hx (non verbal) Subjective: Seen and examined patient. Mother at bedside. Mother feels that his mentation has improved and that he seems to be back to baseline. Review of Systems Constitutional: Denies: see HPI. Objective Last 24 Hrs of Vital Signs/I&O Vital Signs Date Time Temp Pulse Resp B/P B/P Pulse O2 O2 Flow FiO2 Mean Ox Delivery Rate 08/06 0630 97.3 72 14 96/62 98 Room Air 08/06 0144 97.6 70 14 94/60 99 Room Air 08/06 0123 96.3 73 18 93/59 98 Room Air 08/06 0023 96.0 71 18 92/59 99 Room Air 08/05 2321 96.0 72 18 91/59 98 Room Air 08/05 2303 76 20 85/50 100 Room Air 08/05 2219 96.5 79 18 86/54 99 Room Air 08/05 2036 98.9 111 20 98/56 99 Room Air 08/05 1826 130 20 101/59 98 Room Air 08/05 1657 100.7 130 22 105/66 Intake & Output 08/06 1600 08/06 0800 08/06 0000 Intake Total 600 Output Total 550 Balance 50 Intake, IV 600 Number 2 Bowel Movements Output, Urine 550 Patient 84 lb 2 oz 79 lb 15.99 oz Weight Weight Bed scale Reported by Patient Measurement Method Physical Exam General Appearance: No Acute Distress Cardiovascular: Regular Rate, Normal S1, Normal S2 Lungs: Normal Air Movement Extremities: No Edema Current Medications: Current Medications Sig/Leah Start time Last Medication Dose Route Stop Time Status Admin Ampicillin Sodium/ 1,500 MG Q6H 08/06 0300 AC 08/06 Sulbactam Sodium IV 0929 Sodium Chloride 100 ML Ampicillin Sodium/ 1,500 MG Q6 08/06 0059 DC 08/06 Sulbactam Sodium IV 0309 Sodium Chloride 100 ML Carbamazepine 400 MG BID 08/06 2100 CAN PO Carbamazepine 200 MG Q6 08/06 1330 AC PO Carbamazepine 400 MG BID 08/06 0900 DC PO Ceftazidime 0 .STK-MED ONE 08/05 1926 DC .ROUTE Ceftazidime 1,000 MG ONCE ONE 08/05 184 DC 08/05 IV 08/05 184 2015 Heparin Sodium 5,000 UNIT Q8 08/06 0600 AC 08/06 (Porcine) SC 0623 Ketorolac 0 .STK-MED ONE 08/05 192 DC Tromethamine .ROUTE Ketorolac 30 MG ONCE ONE 08/05 1845 DC 08/05 Tromethamine IV 08/05 1846 1931 Metronidazole 500 MG ONCE ONE 08/05 2030 DC 08/05 N/A 1 UNIT IV 08/05 2129 2142 Senna/Docusate Sodium 1 TAB BID 08/06 1230 DC PO Sodium Chloride 1,000 ML Q20H 08/05 2345 DC 08/06 IV 08/06 1304 0007 Sodium Chloride 1,000 ML BOLUS ONE 08/05 2245 CAN IV 08/05 2344 Sodium Chloride 1,000 ML BOLUS ONE 08/05 2230 DC 08/05 IV 08/05 2329 2230 Sodium Chloride 500 ML BOLUS ONE 08/05 2029 DC 08/05 IV 08/05 2128 2142 Sodium Chloride 1,000 ML BOLUS ONE 08/05 184 DC 08/05 IV 08/05 194 1924 Valproate Sodium 875 MG Q8H 08/06 0200 AC 08/06 Sodium Chloride 50 ML IV 1118 Vancomycin HCl 0 .STK-MED ONE 08/05 1925 DC .ROUTE Vancomycin HCl 1,000 MG ONCE ONE 08/05 184 DC 08/05 Sodium Chloride 250 ML IV 08/05 Last 24 Hrs of Lab/Zach Results Last 24 Hrs of Labs/Mics: Laboratory Tests 08/06/17 0733: Anion Gap 8, Estimated GFR > 60, BUN/Creatinine Ratio 25.0, CBC w Diff MAN DIFF ORDERED, RBC 2.67 L, MCV 99.4 H, MCH 33.3 H, MCHC 33.5, RDW 14.6 H, MPV 10.1 , Gran % 72.7, Lymphocytes % 18.7 L, Monocytes % 8.3, Eosinophils % 0.1, Basophils % 0.2, Absolute Granulocytes 5.1, Segmented Neutrophils 42 L, Band Neutrophils 32 H, Absolute Lymphocytes 1.3, Lymphocytes 19 L, Monocytes 7, Absolute Monocytes 0.6, Absolute Eosinophils 0, Absolute Basophils 0, Platelet Estimate DECREASED, Polychromasia 1+, Basophilic Stippling 1+, Anisocytosis 1+ 08/05/172134: Lactic Acid 0.7 08/05/172023: Lactic Acid Cancelled 08/05/172009: Urine Color YEL, Urine Clarity HAZY H, Urine pH 6.5, Ur Specific [place] 1.020, Urine Protein NEG, Urine Ketones NEG, Urine Nitrite NEG, Urine Bilirubin NEG, Urine Urobilinogen 2.0 H, Ur Leukocyte Esterase NEG, Ur Microscopic SEDIMENT EXAMINED, Urine RBC 3-5, Urine WBC 1-3 H, Urine Mucus FEW, Urine Hemoglobin SMALL H, Urine Glucose NEG 08/05/171904: Anion Gap 13, Estimated GFR > 60, BUN/Creatinine Ratio 26.0 H, Glucose 100 H, Lactic Acid 6.1 H, Calcium 9.5, Total Bilirubin 0.4, AST 24, ALT 17 L, Alkaline Phosphatase 92, Total Protein 6.8, Albumin 3.6, Globulin 3.2, Albumin/ Globulin Ratio 1.1, CBC w Diff MAN DIFF ORDERED, RBC 3.16 L, MCV 98.6 H, MCH 33.3 H, MCHC 33.8, RDW 14.4, MPV 9.9, Gran % 83.4 H, Lymphocytes % 6.6 L, Monocytes % 10.0 H, Eosinophils % 0, Basophils % 0, Absolute Granulocytes 7.6 H, Segmented Neutrophils 58, Band Neutrophils 23 H, Absolute Lymphocytes 0.6 L , Lymphocytes 10 L, Monocytes 8, Absolute Monocytes 0.9 H, Absolute Eosinophils 0, Absolute Basophils 0, Metamyelocytes 1, Platelet Estimate ADEQUATE, Polychromasia 1+, Hypochromic-Microcytic 2+, Basophilic Stippling 1+, Anisocytosis 1+, Macrocytic Cells 1+, Carbamazepine 8.6 Microbiology 08/06 58 LOWER RESP: Respiratory Culture - COLB 08/06 58 LOWER RESP: Gram Stain - COLB 08/05 2014 URINE ROUT: Urine Culture - RES 08/05 1949 BLOOD: Blood Culture - RES 08/05 1904 BLOOD: Blood Culture - RES Assessment/Plan Assessment: 31 year old gentleman from home, non verbal at baseline with h/o cerebral palsy, cognitive impairment, seizure disorder, sent from respite home for evaluation of lethargy and altered mental status after he had an episode of vomitting there. In ED was found to be in severe sepsis with improvement in his BP s/p 3L NS bolus. UA not suggestive of UTI. Carbamazepine levels 8.6. CXR: no consolidation, effusion. CT chest/ abdomen/ pelvis with contrast: patchy consolidation in left lung in the lower lobe, concerning for pneumonia. No acute abnormality of abdomen or pelvis. Assessment and plan: 1. Severe sepsis-resolved 2. Aspiration pneumonia of left lower lobe 3. Hypotension 2/2 to sepsis - improving 4. History of cerebral palsy, MR and seizure disorder Plan: -afebrile, no leukocyctosis, BP stable at 90s systolic/ 60s diastolic - Continue on General medicine - Aspiration, seizure and fall precautions - Prelim blood culture show no growth - Continue IV Unasyn Q6 - Per his mother his mentation is back to baseline, Mother will feed while watching cautiously for aspiration. Formal swallow eval pending. - AM cortisol level, TSH, free T4 pending - If persistently hypotensive, consider ICU transfer for pressors - on IV tegretol and carbamazepine suspension, will convert to PO after formal swallow eval. -test guiac postive in stool. place on bowel regimen -Macrocytic anemia, follow up Vit B12/Fa DVT ppx Lovenox. Full code. Problem List: 1. Sepsis 2. Seizure disorder Pain Ratin Pain Location: na Pain Goal: Pain 4 or less Pain Plan: current regimen Tomorrow's Labs & Rationales: cbc/vit b12/fa Miguel Mayorga MD 08/06/17 1155: Attending MD Review Statement Attending Statement Attending MD Statement: examined this patient, discuss w/resident/PA/BACKING IN MACHINE TENDER, agreed w/resident/PA/BACKING IN MACHINE TENDER, discussed with family, reviewed EMR data (avail), discussed with nursing, discussed with case mgmt, reviewed images, amended to note Attending Assessment/Plan: The patient was seen and discussed with house staff, nursing, case management and the patient's mother. The patient has a known seizure disorder and has sporadic brief seizures (last had been 2 weeks ago). Was previously evaluated at [facility] and the patient's mother declined extensive workup as he had been stable. It is unclear if he had a seizure that lead to this admission, however mother states that when he is in respite home (in [place]) his routine is disrupted. In term of the aspiration event, it appears to be related to an episode of vomiting. He has had a previous swallow evaluation here and has been on regular diet with Ensure supplements at home with thin liquids. Mother feels he is back to his baseline at present. Will allow his mother to feed him his usual diet now (speech will see today) and will observe for any evidence of aspiration. The patient is afebrile.
[2017-08-06 08:36] LABS: ABSOLUTE BASOPHIL COUNT 0 /CUMM (0.0-0.2); ABSOLUTE EOSINOPHIL COUNT 0 /CUMM (0.0-0.7); ABSOLUTE GRANULOCYTE CT 5.1 /CUMM (1.4-6.5); ABSOLUTE LYMPH COUNT 1.3 /CUMM (1.2-3.4); ABSOLUTE MONOCYTE COUNT 0.6 /CUMM (0.10-0.60); BASOPHIL % 0.2 % (0.0-2.0); EOSINOPHIL % 0.1 % (0-5); GRANULOCYTE % 72.7 % (42.2-75.2); HEMATOCRIT 26.5 % (42-52); MEAN CORPUSCULAR HGB 33.3 PG (27.0-31.0); MEAN CORPUSCULAR HGB CONC 33.5 G/DL (33.0-37.0); MEAN CORPUSCULAR VOLUME 99.4 FL (80.0-94.0); MEAN PLATELET VOLUME 10.1 FL (7.4-10.4); RBC DISTRIBUTION WIDTH 14.6 % (11.5-14.5); RED BLOOD CELL CT 2.67 /CUMM (4.70-6.10); WHITE BLOOD CELL COUNT 7.1 /CUMM (4.8-10.8)
[2017-08-06 09:40] LABS: PLATELET COUNT 120 /CUMM (130-400)
[2017-08-06 14:35] VITALS: BP 107/66
[2017-08-06 22:13] VITALS: BP 92/51
[2017-08-06 22:23] VITALS: BP 100/50
[2017-08-07 06:08] VITALS: BP 118/70
--- NOTE | 2017-08-07 07:13 | PN- Housestaff ---
Nelda Anne 08/07/17 0712: Subjective Follow-up For: 1. Severe sepsis-resolved 2. Aspiration pneumonia of left lower lobe 3. Hypotension 2/2 to sepsis - improving 4. History of cerebral palsy, MR and seizure disorde Complaints: pt unable to offer compalints. Pt non-verbal at baseline Subjective: He was comfortably lying in bed when I walked into the room. His mother was at bedside, and stated that he was at baseline as compared to when he presented to the hospital. No new complaints. Review of Systems Constitutional: Reports: see HPI. Objective Last 24 Hrs of Vital Signs/I&O Vital Signs Date Time Temp Pulse Resp B/P B/P Pulse O2 O2 Flow FiO2 Mean Ox Delivery Rate 08/07 0608 98.6 89 20 118/70 97 Room Air 08/06 2225 90 08/06 2223 100/50 08/06 2213 98.2 110 18 92/51 100 08/06 1435 97.5 64 20 107/66 98 Room Air Intake & Output 08/07 0800 08/07 0000 08/06 1600 Intake Total 258.75 860 900 Output Total 350 450 400 Balance -91.25 410 500 Intake, IV 158.75 260 300 Intake, Oral 100 600 600 Number 4 Bowel Movements Output, Urine 350 450 400 Physical Exam General Appearance: No Acute Distress Other Physical Findings: General Appearance: No Acute Distress Cardiovascular: Regular Rate, Normal S1, Normal S2 Lungs: Normal Air Movement Extremities: No Edema Current Medications: Current Medications Sig/Leah Start time Last Medication Dose Route Stop Time Status Admin Ampicillin Sodium/ 1,500 MG Q6H 08/06 0300 08/07 Sulbactam Sodium IV 0346 Sodium Chloride 100 ML Carbamazepine 400 MG BID 08/06 2100 CAN PO Carbamazepine 200 MG Q6H 08/06 2045 AC 08/07 PO 0241 Carbamazepine 200 MG Q6 08/06 1330 DC 08/06 PO 1444 Carbamazepine 400 MG BID 08/06 0900 DC PO Heparin Sodium 5,000 UNIT Q8 08/06 0600 08/07 (Porcine) SC 0614 Senna/Docusate Sodium 1 TAB BID 08/06 1230 DC PO Sodium Chloride 1,000 ML Q20H 08/05 2345 DC 08/06 IV 08/06 1304 0007 Valproate Sodium 875 MG Q8H 08/06 0200 AC 08/07 Sodium Chloride 50 ML IV 0233 Last 24 Hrs of Lab/Zach Results Last 24 Hrs of Labs/Mics: Laboratory Tests 08/06/17 0800: Cortisol AM Sample Cancelled 08/06/17 0733: Anion Gap 8, Estimated GFR > 60, BUN/Creatinine Ratio 25.0, TSH &T3 &Free T4 Intrp 0.920, Cortisol AM Sample 18.7, CBC w Diff MAN DIFF ORDERED, RBC 2.67 L, MCV 99.4 H, MCH 33.3 H, MCHC 33.5, RDW 14.6 H, MPV 10.1, Gran % 72.7, Lymphocytes % 18.7 L, Monocytes % 8.3, Eosinophils % 0.1, Basophils % 0.2, Absolute Granulocytes 5.1, Segmented Neutrophils 42 L, Band Neutrophils 32 H, Absolute Lymphocytes 1.3, Lymphocytes 19 L, Monocytes 7, Absolute Monocytes 0.6 , Absolute Eosinophils 0, Absolute Basophils 0, Platelet Estimate DECREASED, Polychromasia 1+, Basophilic Stippling 1+, Anisocytosis 1+ Assessment/Plan Assessment: 31 year old gentleman from home, non verbal at baseline with h/o cerebral palsy, cognitive impairment, seizure disorder, sent from respite home for evaluation of lethargy and altered mental status after he had an episode of vomitting there. In ED was found to be in severe sepsis with improvement in his BP s/p 3L NS bolus. UA not suggestive of UTI. Carbamazepine levels 8.6. CXR: no consolidation, effusion. CT chest/ abdomen/ pelvis with contrast: patchy consolidation in left lung in the lower lobe, concerning for pneumonia. No acute abnormality of abdomen or pelvis. Assessment and plan: 1. Severe sepsis-resolved 2. Aspiration pneumonia of left lower lobe 3. Hypotension 2/2 to sepsis - improving 4. History of cerebral palsy, MR and seizure disorder Plan: -afebrile, no leukocyctosis, BP stable at 90s systolic/ 60s diastolic - Continue on General medicine. Plan to dc the pt. - Aspiration, seizure and fall precautions - Prelim blood culture show no growth - Continue IV Unasyn Q6,which could be changed to augmentin 500mg/125 q8 for a total of 5 days of abx. Discussed w/ his mother and also pharmacy. - AM cortisol level, TSH, free T4 pending - If persistently hypotensive, consider ICU transfer for pressors - on IV tegretol and carbamazepine suspension, will convert to PO at the time of dc. -test guiac postive in stool. place on bowel regimen -Macrocytic anemia, follow up Vit B12/Fa DVT ppx Lovenox. Full code. Problem List: 1. Sepsis 2. Seizure disorder Pain Ratin (unable to assess) Pain Location: none Pain Goal: Pain 4 or less Pain Plan: tylenol prn Tomorrow's Labs & Rationales: none Miguel Mayorga MD 08/07/17 1543: Attending MD Review Statement Attending Statement Attending MD Statement: examined this patient, discuss w/resident/PA/SPORTS AGENT, agreed w/resident/PA/SPORTS AGENT, discussed with family, reviewed EMR data (avail), discussed with nursing, discussed with case mgmt, amended to note Attending Assessment/Plan: The patient was seen and discussed with house staff, nursing, case management and the patient's family (mother). She feels he is back to baseline. OK to discharge today to complete 5 days of antibiotic (Augmentin). Follow-up with PCP. Note cell counts decreased on labs yesterday due to dilution (no evidence of bleeding). The patient improved faster than expected.
--- NOTE | 2017-08-07 09:49 | Patient Discharge Instructions ---
Discharge Instructions General Discharge Information You were seen/treated for: Aspiration pneumonitis Watch for these problems: #1 fever, shortness of breath #2 seizures Special Instructions: -Please see your primary care provider within a week of discharge -Please take your medications as prescribed. Acute Coronary Syndrome Inclusion Criteria At DC or during hospital stay patient has or had the following: ACS DIAGNOSIS No Discharge Core Measures Meds if any: Prescribed or Continued at Discharge Meds if any: NOT Prescribed or Continued at Discharge Congestive Heart Failure Inclusion Criteria At DC or during hospital stay patient has or had the following: CHF DIAGNOSIS No Discharge Core Measures Meds if any: Prescribed or Continued at Discharge Meds if any: NOT Prescribed or Continued at Discharge Cerebrovascular accident Inclusion Criteria At DC or during hospital stay patient has or had the following: CVA/TIA Diagnosis No Discharge Core Measures Meds if any: Prescribed or Continued at Discharge Meds if any: NOT Prescribed or Continued at Discharge Venous thromboembolism Inclusion Criteria VTE Diagnosis No VTE Type NONE VTE Confirmed by (Test) NONE Discharge Core Measures - Per Current guidelines, there needs to be overlap - treatment for the first 5 days of Warfarin therapy. - If discharged on Warfarin prior to 5 days of - overlap therapy, the patient will need to be - assessed for post discharge needs including - *Post discharge parental anticoagulation - *Warfarin and/or parental anticoagulation education - *Follow up date to check INR post discharge At least 5 days overlap therapy as Inpatient No Meds if any: Prescribed or Continued at Discharge Note: Overlap Therapy is Warfarin and Anticoagulant Meds if any: NOT Prescribed or Continued at Discharge
[2017-08-07] MEDS ORDERED: AUGMENTIN 875-1 EACH PO (09:59)
[2017-08-07] MEDS ORDERED: AUGMENTIN250 MG/51 PO ×2 (10:24→10:45)
--- NOTE | 2017-08-07 14:20 | Discharge Summary ---
Visit Information Visit Dates Admission Date: 08/05/17 Discharge Date: 08/07/17 Hospital Course Course Attending Physician: Miguel Mayorga MD Primary Care Physician: Blaine MCCOY,[facility] Course: Mr Amaya is a 31 year old gentleman from home, non verbal at baseline with h/o cerebral palsy,cognitive impairment, seizure disorder [facility]y and altered mental status after he had an episode of vomitting. He was admitted to general medicince service for the management of possible aspiration pneumonia. At the time of admission, vitals temperature 100.7 pulse rate 1:30, respiration 22, blood pressure 105/66. Lab findings: WBC 9.1 hemoglobin 10.5, platelet count 182. UA clear; carbamazepine level 8.6. CXR: no consolidation, effusion. CT chest/ abdomen/ pelvis with contrast: patchy consolidation in left lung in the lower lobe, concerning for pneumonia. No acute abnormality of abdomen or pelvis. (Detailed report below) Following problems were addressed when he was admitted to the hospital. 1. Severe sepsis 2. Aspiration pneumonia of left lower lobe 3. Hypotension 2/2 to sepsis 4. History of cerebral palsy, MR and seizure disorder While he was admitted to general medicine floor, vitals were monitored closely. He remained afebrile, although blood pressure remained slightly on the lower side in the range of systolic 85-118, diastolic 50-70. He was completely asymptomatic. He was nonverbal at baseline, but seemed clinically improved compared to his presentation. He was started on Unasyn, which was transitioned to Augmentin suspension by mouth to complete a course of 5 days. Cultures- LRC, blood cultures remained negative. He was continued on his anti-seizure medications while he was admitted in the hospital. He did not have any episodes of seizures. He was maintained on aspiration precautions, and was fed by his family. He didnt have any episodes of aspiration while he was in the hospital. Allergies: Coded Allergies: NO KNOWN ALLERGIES (12/22/15) Pertinent Lab Results: CAT - CT ABD & PELVIS W IV CONTRAST; CT CHEST W IV CONTRAST 1. Patchy consolidation in the left lung, predominantly in the lower lobe, concerning for pneumonia. 2. No acute abnormalities in the abdomen or pelvis. --- RAD - XRY-PORTABLE CHEST XRAY 08/05/17-1750 Unremarkable examination Disposition Summary Disposition Principal Diagnosis: Aspiration pneumonia Additional Diagnosis: Seizure disorder Cerebral palsy Discharge Disposition: home or self care Discharge Instructions General Discharge Information Code Status: Full Code Patient's Diet: as tolerated. Patient's Activity: as tolerated. Follow-Up Instructions/Appts: -Please see your primary care provider within a week of discharge -Please take your medications as prescribed. Medications at Discharge Discharge Medications: Continue taking these medications: Divalproex Sodium (Depakote Sprinkle) 125 MG CAP.SPRINK 7 Capsule ORAL THREE TIMES DAILY Qty = 210 Comments: Last Taken:08/07/17 Time:1000 AM, 875MG IV Carbamazepine (Carbamazepine) 200 MG CPMP.12HR 2 Capsule ORAL TWICE DAILY Qty = 120 Comments: Last Taken:08/07/17 Time:0900 AM, LIQUID Start taking the following new medications: Amoxicillin/Potassium Clav (Augmentin 250-62.5 MG/5 Ml) 250 MG-62.5 MG/5 ML SUSP.RECON 10 Milliliters ORAL THREE TIMES DAILY Qty = 110 No Refills Instructions: total of 11 doses. Comments: NOT GIVEN IN HOSPITAL Copies To: Eriac Valladares MD, MD Review Statement Documenting Attending: Miguel Mayorga MD Other Findings: The patient was seen and agree with the plan of care as outlined. Copies To: Erica Valladares MD, MD Review Statement Documenting Attending: Miguel Mayorga MD
== END 2017-08-07 13:09 | DRG 720 ==
LOC: ERH 16:40 → ERHI 23:35 → 2NA 23:35 → ENRESERV 08-06 01:02 → 2NA 08-06 01:25 → ENPENDDIS 08-07 10:53 → 2NA 08-07 13:09
PROVIDERS: Student in an Organized Health Care Education/Training Program
DX: A41.9 Sepsis, unspecified organism (principal); J69.0 Pneumonitis due to inhalation of food and vomit; R65.20 Severe sepsis without septic shock; F79 Unspecified intellectual disabilities; G80.9 Cerebral palsy, unspecified; I95.9 Hypotension, unspecified; G40.909 Epilepsy, unspecified, not intractable, without status epilepticus
CPT/HCPCS: 2NAP; ERO; 36592; 71045; 74177; 81001; 82436; 87040; 87070; 87086; 96361; 96365; 96375; 99291; J0713; J1644; J1885; J3370; J7040

== ENCOUNTER 2017-09-27 17:49 | Inpatient (IN) | payer OTHER ==
[~2017-09-27] VITALS: Ht 154.9 cm; Wt 38.6 kg
[~2017-09-27 17:49] MED LIST changes: +AUGMENTIN 875-1 EACH PO; +AUGMENTIN250 MG/51 PO; +CHILDREN'S100 MG/58 PO; +ENSURE LIQUID237 ML PO
--- NOTE | 2017-09-27 17:56 | ED GENERAL ADULT ---
History of Present Illness General Chief Complaint: General Adult Stated Complaint: NO BM SINCE LAST SUNDAY Source: family Exam Limitations: patient non-verbal; ROS provided by mother Vital Signs & Intake/Output Vital Signs & Intake/Output Vital Signs Date Time Temp Pulse Resp B/P B/P Pulse O2 O2 Flow FiO2 Mean Ox Delivery Rate 09/28 1315 99.1 77 16 103/64 99 Room Air 09/28 1145 96 Room Air Room Air 09/28 0600 98.0 91 20 113/71 100 Room Air 09/28 0330 90 20 110/68 99 Room Air 09/28 0032 Room Air 09/27 2044 98.1 95 20 106/63 100 09/27 1759 99 09/27 1757 86 14 80/54 99 Room Air ED Intake and Output 09/28 0000 09/27 1200 Intake Total Output Total Balance Patient 110 lb Weight Weight Estimated Measurement Method Allergies Coded Allergies: NO KNOWN ALLERGIES (12/22/15) Reconcile Medications Amoxicillin/Potassium Clav (Augmentin 250-62.5 MG/5 Ml) 250 MG-62.5 MG/5 ML SUSP.RECON 10 ML PO TID PROCTITIS Carbamazepine 200 MG CPMP.12HR 2 CAP PO BID seizure (Reported) Divalproex Sodium (Depakote Sprinkle) 125 MG CAP.SPRINK 7 CAP PO TID seizure (Reported) Ibuprofen (Children's Motrin) 100 MG/5 ML ORAL.SUSP 20 ML PO Q6P fever or pain Lactose-Reduced Food (Ensure Liquid) 237 ML LIQUID 1 CAN PO TID SUPPLEMENTAL NUTRITION (Reported) Triage Nurses Notes Reviewed? yes HPI: This is a 31-year-old male, arriving to the emergency department accompanied by his mother with a history of cerebral palsy and mental retardation, nonverbal at baseline who has had with the mother perceives as discomfort for the past several days in the setting of decreased bowel movements. According to the mother, the patient has not moved his bowels since despite her administering p.o. MiraLAX as recently as yesterday. Patient was recently seen in the emergency department and diagnosed with colitis/proctitis, started on p.o. Augmentin. Patient has been taking this medication for the past 6 days. He has had no diarrhea, fever, chills, cough, change in appetite. Today, at his daycare, the patient was crying, uncomfortable appearing. The mother brought him here for evaluation after reaching out to gastroenterology. Patient had been scheduled to follow-up with GI next Sunday. (Reed Osuna MD) Past History Medical History Any Pertinent Medical History? see below for history Neurological: seizure, CEREBRAL PALSY MR Mental retardation EENT: NONE Cardiovascular: NONE Respiratory: ASP PNA Gastrointestinal: NONE Hepatic: NONE Renal: NONE Musculoskeletal: NONE Psychiatric: NONE Endocrine: NONE Blood Disorders: NONE Cancer(s): NONE MASTER YACHT/Reproductive: NONE History of MRSA: No History of VRE: No History of CDIFF: No Surgical History Surgical History: non-contributory Psychosocial History Who do you live with Mother Services at Home None What is your primary language Spanish Family History Hx Contributory? No (Reed Osuna MD) Review of Systems Review of Systems Constitutional: Reports: see HPI. Comments Patient is unable to provide review of systems, as noted in the HPI, patient has had decreased bowel movements and has been crying today. There is been no fever , chills, sweats, vomiting, change in appetite. The mother has not noticed any bruising denies any recent injury/trauma/illness (Reed Osuna MD) Physical Exam Physical Exam General Appearance: no apparent distress, alert Head: atraumatic Eyes: Bilateral: normal appearance. Ears, Nose, Throat: normal pharynx, normal ENT inspection Neck: normal inspection, supple Respiratory: normal breath sounds, chest non-tender, no respiratory distress, lungs clear Cardiovascular: regular rate/rhythm, normal peripheral pulses Gastrointestinal: soft, non-tender Rectal: heme negative stool Back: normal inspection Extremities: no edema Neurologic/Psych: awake, alert Comments: This is a thin, young man, no acute distress. He has nystagmus at baseline, horizontal. He moves all extremities but does not follow commands and is nonverbal at baseline. He is unable to walk. He has no obvious gross new neurologic deficits. His abdominal exam and cardia point exam are baseline. He has a large amount of hard brown guaiac-negative stool in the rectal vault which the patient spontaneously passes following digital rectal exam. He has no obvious rectal tenderness. There is no rectal bleeding or perianal or rectal abscess on my exam. No hemorrhoid. Core Measures ACS in differential dx? No CVA/TIA Diagnosis: No Sepsis Present: No Sepsis Focused Exam Completed? No (Reed Osuna MD) Progress Differential Diagnoses I considered the following diagnoses in my evaluation of the patient: This could be pain related to constipation of unclear etiology, potentially related to recent colitis diagnosis. Some concern for progression of colitis despite antibiotic treatment given patient is nonverbal, difficult to assess other underlying symptoms. Low suspicion for acute cardiopulmonary process in this patient given exam and history. Plan of Care: Orders Procedure Date/time Status Nothing by Mouth 09/28 D Active Nothing by Mouth 09/28 B Complete ED Holding Orders 09/28 1438 Active Admit to inpatient 09/28 1438 Active XRY-HIP 2-3 VIEWS, LEFT 09/28 1413 Active US-TESTICULAR 09/28 1358 Active Add-on Test (ER Only) 09/28 0005 Active Vital Signs 09/27 230 Active Code Status 09/27 2304 Active LACTIC ACID 09/28 1919 Complete COMPREHENSIVE METABOLIC PANEL 09/28 1847 Complete CBC WITHOUT DIFFERENTIAL 09/28 1847 Complete Laboratory Tests 09/27/171924: CBC w Diff NO MAN DIFF REQ, RBC 2.80 L, MCV 97.6 H, MCH 32.2 H, MCHC 33.0, RDW 14.0, MPV 8.5, Gran % 75.0, Lymphocytes % 17.5 L, Monocytes % 6.8, Eosinophils % 0.5, Basophils % 0.2, Absolute Granulocytes 6.1, Absolute Lymphocytes 1.4, Absolute Monocytes 0.6, Absolute Eosinophils 0, Absolute Basophils 0 09/27/171919: Anion Gap 6, Estimated GFR > 60, BUN/Creatinine Ratio 55.0 H, Glucose 88, Lactic Acid 3.8 H, Calcium 9.3, Total Bilirubin 0.3, AST 30, ALT 29, Alkaline Phosphatase 88, Total Protein 6.6, Albumin 3.3 L, Globulin 3.3, Albumin/ Globulin Ratio 1.0 L 09/27/171847: Urine Color Cancelled, Urine Clarity Cancelled, Urine pH Cancelled, Ur Specific [place] Cancelled, Urine Protein Cancelled, Urine Ketones Cancelled, Urine Nitrite Cancelled, Urine Bilirubin Cancelled, Urine Urobilinogen Cancelled, Ur Leukocyte Esterase Cancelled, Ur Microscopic Cancelled, Urine Hemoglobin Cancelled, Urine Glucose Cancelled Plan for metabolic panel, CVC, CT abdomen and pelvis, patient passes stool following digital rectal exam, which may improve his symptoms significantly. He falls asleep, is well-appearing on reassessment. Will monitor for bowel movement in the emergency department. Given negative guaiac and otherwise benign exam, low concern at this time for lower GI bleed or upper GI bleed. Will consider GI consultation pending results of CT abdomen pelvis and clinical course. CAT scan is mildly concerning for free air to the area of the rectum, raising concern for possible rectal perforation in the setting of constipation, recent colitis/proctitis. Given this, will plan for CT pelvis with rectal contrast. Since we are unable to perform this procedure this evening, and the patient is very well-appearing with a benign abdominal exam, negative lactate, negative white count, stable vital signs, and benign rectal exam, I believe it is reasonable for the patient to remain in the emergency department overnight for this study in the morning. In the interim, case is discussed with on-call GI doctor Dr. Vivas, he agrees with plan for further workup in the emergency department; no acute GI intervention at this time. Case also discussed with on- call surgeon Dr. Barber, he agrees that this presentation is highly atypical for acute perforation, will have surgical PA evaluate the patient in the emergency department. Plan is discussed with the patient's mother, who is agreeable and able to give consent for any procedures. Care signed out to Dr. Wall, pending reevaluation and CAT scan in the morning. Initial ED EKG: none (Reed Osuna MD) Hand-Off Endorsed To: Artis Slater MD Endorsed Time: 0700 Pending: CT (Rectal contrast) (Oumar Wall MD) Departure Departure Condition: Stable Referrals: Erica Valladares MD (PCP/Family) Departure Forms: Customer Survey General Discharge Information (Reed Osuna MD) Departure Disposition: STILL A PATIENT (Oumar Wall MD) Departure Clinical Impression Primary Impression: Fracture of femoral neck, left Secondary Impressions: Constipation Admission Note Spoke With: Marley Berry MD Documentation of Exam: Documentation of any treatments & extenuating circumstances including Concerns Regarding Discharge (functional status, medication knowledge or non-compliance, living conditions, etc.) that warrant an admission rather than observation: [NPO , PAIN CONTROL, ORTHO CONSULT AND SURGERY WHEN MEDICALLY CLEARED.] (Artis Slater MD) Critical Care Note Critical Care Note Critical Care Time: non-applicable (Reed Osuna MD)
[2017-09-27 19:49] LABS: ABSOLUTE BASOPHIL COUNT 0 /CUMM (0.0-0.2); ABSOLUTE EOSINOPHIL COUNT 0 /CUMM (0.0-0.7); ABSOLUTE GRANULOCYTE CT 6.1 /CUMM (1.4-6.5); ABSOLUTE LYMPH COUNT 1.4 /CUMM (1.2-3.4); ABSOLUTE MONOCYTE COUNT 0.6 /CUMM (0.10-0.60); BASOPHIL % 0.2 % (0.0-2.0); EOSINOPHIL % 0.5 % (0-5); HEMATOCRIT 27.4 % (42-52); MEAN CORPUSCULAR HGB 32.2 PG (27.0-31.0); MEAN CORPUSCULAR VOLUME 97.6 FL (80.0-94.0); MEAN PLATELET VOLUME 8.5 FL (7.4-10.4); WHITE BLOOD CELL COUNT 8.2 /CUMM (4.8-10.8)
[2017-09-27 19:50] LABS: PLATELET COUNT 326 /CUMM (130-400)
--- NOTE | 2017-09-27 22:04 | CT SCAN REPORT ---
EXAMINATION: CT ABDOMEN AND PELVIS WITH CONTRAST CLINICAL INFORMATION: Proctitis with concern for abscess with worsening pain. COMPARISON: None TECHNIQUE: Multidetector volumetric imaging was performed of the abdomen and pelvis following IV administration of 95 mL of Optiray 320 intravenous contrast. Sagittal and coronal reformatted images were obtained on the technologist's workstation. DLP: 253.50 mGy-cm FINDINGS: LUNG BASES: New atelectasis/patchy infiltrate and small left effusion are noted compared to the prior study. The right lung is clear. LIVER, GALLBLADDER, AND BILIARY TREE: The liver is normal in size, shape, and attenuation. No focal hepatic lesion or biliary ductal dilatation is present. The gallbladder is unremarkable with no evidence of radiopaque gallstones, gallbladder wall thickening, or obvious pericholecystic inflammatory changes. PANCREAS: Unremarkable. SPLEEN: Unremarkable. ADRENAL GLANDS: Unremarkable. KIDNEYS AND URETERS: The kidneys are normal in size, shape, and attenuation. No hydronephrosis, hydroureter, or calculi seen. No perinephric stranding. BLADDER: Unremarkable. GASTROINTESTINAL TRACT: The abnormal appearance of the rectosigmoid with wall thickening and pericolonic inflammatory changes are very similar to that noted previously. There is increased air between loops of bowel that could conceivably be extraluminal although, it is very difficult to be certain of this. A repeat CT scan with rectal contrast should be definitive if this is a consideration. No abnormal fluid collections are seen that with be drainable. ABDOMINAL WALL: No significant hernia is appreciated. LYMPH NODES: Normal. VASCULAR: Unremarkable. PELVIC VISCERA: Small amount of free fluid is noted in the pelvis anteriorly. The bladder appears normal. OSSEOUS STRUCTURES: Unremarkable. IMPRESSION: Rectal inflammatory changes persist. There is some increased air around and between loops of bowel in the pelvis which could conceivably represent extraluminal air from an area of perforation but most likely represents unopacified bowel loops filled with air.. A repeat CT scan with rectal Gastrografin would be definitive if clinical condition warrants. This was discussed Dr. Reed Osuna.
--- NOTE | 2017-09-28 13:24 | CT SCAN REPORT ---
EXAMINATION: CT PELVIS WITHOUT CONTRAST CLINICAL INFORMATION: Abdominal pain. Presumptive diagnosis of colon perforation. COMPARISON: CT scan of the abdomen and pelvis dated 09/27/2017, 09/21/2017, 08/05/2017, and 12/22/2015. TECHNIQUE: Helical scanning was performed with submillimeter collimation through the pelvis after the administration of 750 mL of dilute Gastroview contrast via gravity drip infusion through a rectal tube. Sagittal and coronal multiplanar 2-D reconstructions were obtained. DLP: 170.10 mGy-cm FINDINGS: BOWEL LOOPS: The rectal contrast is seen distending a capacious rectosigmoid colon and distal descending colon. There is also some contrast seen within the right colon. No evidence of contrast extravasation is seen. No free air or free fluid is noted. There is a prominent colonic diverticulum seen at the distal sigmoid colon level (series 2, image 21). Included small bowel loops are unremarkable, including the terminal ileum. The appendix is not definitely visualized. BLADDER: Partially distended and unremarkable. LYMPHOVASCULAR STRUCTURES: Unremarkable. PELVIC ORGANS: Prostate gland and seminal vesicles are unremarkable. There is incomplete inclusion of the scrotum. The right hemiscrotum is markedly enlarged compared to the left side with a heterogeneous 6.8 x 7.5 cm mass seen. This was not included in the [id number] of the prior CT scans of the abdomen from 09/21/2017, 08/05/2017 and 12/22/2015 and is also only partially included in the [id number] of today's exam. OSSEOUS STRUCTURES: There is an acute minimally displaced left femoral neck fracture with partial impaction seen, new from 08/05/2017. A small left hip joint effusion is seen appearing minimally hyperdense, likely due to a hemorrhagic component. IMPRESSION: 1. Capacious rectosigmoid colon with no evidence of bowel perforation seen. The rectal contrast remains intraluminal with no contrast extravasation seen. 2. A few isolated sigmoid colonic diverticula are seen. No evidence of acute diverticulitis. 3. Acute minimally displaced left femoral neck fracture with partial impaction and small hemorrhagic joint effusion. 4. Large 6.8 x 7.5 cm mass in the right hemiscrotum, incompletely imaged. This is suspicious for a right testicular neoplasm. Further assessment with testicular ultrasound is recommended. Findings discussed with Dr. Slater 09/28/2017, 1:15 PM.
--- NOTE | 2017-09-28 15:28 | History & Physical ---
Sky Perez 09/28/17 1527: General Information and HPI MD Statement: I have seen and personally examined CHANI DUBON and documented this H&P. The patient is a 31 year old M who presented with a patient stated chief complaint of [no bowel movement since last ]. Source of Information: family Exam Limitations: unable to give history, physical impairment History of Present Illness: The patient is a 31-year-old male, with past medical history significant for seizure disorder (on Depakote, carbamazepine) and cerebral palsy, intellectual disability, non-ambulatory, nonverbal, who was admitted to the ER from last night chief complaint of not having a bowel movement. Her mother gives a history of falling from bed about 3 weeks ago because she had forgotten to put but the body pillow on the bed for him. His brother had found him on the ground and notified his mother. He was taken to ER at [facility] 1 week ago, with fever, he was prescribed Augmentin. Due to possible proctitis. These medications did not help the situation and the family decided to bring him back, CT abdomen was done which showed a impacted femoral neck fracture on the left side. Orthopedic surgeon has seen the family and talks to them that at this time based on the condition of the patient no surgery is planned for the fracture. They report no history of blood in urine, blood in the stool, no chills but one episode of fever last Sunday. He attends day program. He also has a scrotal sizable mass (7 x 8 cm) on the right side. When I asked the family about the chronicity of this mass, the mother could not say whether it was new or old. Past medical history: Cerebral palsy, intellectual disability, nonambulatory, nonverbal, seizure disorder, deformity in extremities. Imaging: Hip x-ray:Acute, mildly impacted fracture of the left femoral neck. Pelvic CT:1. Capacious rectosigmoid colon with no evidence of bowel perforation seen. The rectal contrast remains intraluminal with no contrast extravasation seen. 2. A few isolated sigmoid colonic diverticula are seen. No evidence of acute diverticulitis. 3. Acute minimally displaced left femoral neck fracture with partial impaction and small hemorrhagic joint effusion. 4. Large 6.8 x 7.5 cm mass in the right hemiscrotum, incompletely imaged. This is suspicious for a right testicular neoplasm. Further assessment with testicular ultrasound is recommended. Testicular ultrasound:1. Markedly enlarged heterogeneous and edematous right testicle is seen with complex nodular parenchymal pattern seen. Superimposed 3 discrete measurable hypoechoic masses are noted. Normal arterial and venous flow in the right testicle is seen. Findings are most suspicious for a nonseminomatous germ cell tumor or other neoplastic process such as primary or secondary testicular lymphoma or metastatic disease. Granulomatous diseases may have a similar appearance. Close clinical correlation is requested. 2. Bilateral testicular microlithiasis, right greater than left. 3. Left testicle otherwise unremarkable. 4. Bilateral epididymides are normal. Allergies/Medications Allergies: Coded Allergies: NO KNOWN ALLERGIES (12/22/15) Home Med list Amoxicillin/Potassium Clav (Augmentin 250-62.5 MG/5 Ml) 250 MG-62.5 MG/5 ML SUSP.RECON 10 ML PO TID PROCTITIS Carbamazepine 200 MG CPMP.12HR 2 CAP PO BID seizure (Reported) Divalproex Sodium (Depakote Sprinkle) 125 MG CAP.SPRINK 7 CAP PO TID seizure (Reported) Ibuprofen (Children's Motrin) 100 MG/5 ML ORAL.SUSP 20 ML PO Q6P fever or pain Lactose-Reduced Food (Ensure Liquid) 237 ML LIQUID 1 CAN PO TID SUPPLEMENTAL NUTRITION (Reported) Compliance With Home Meds: GOOD Past History Travel History Traveled to [place] past 21 day No Medical History Neurological: seizure, CEREBRAL PALSY MR Mental retardation EENT: NONE Cardiovascular: NONE Respiratory: ASP PNA Gastrointestinal: NONE Hepatic: NONE Renal: NONE Musculoskeletal: NONE Psychiatric: NONE Endocrine: NONE Blood Disorders: NONE Cancer(s): NONE DIRECTOR HEART/Reproductive: NONE History of MRSA: No History of VRE: No History of CDIFF: No Surgical History Surgical History: non-contributory Past Family/Social History Psychosocial History Who Do You Live With? parent Services at Home: None Primary Language: nonverbal ETOH Use: denies use Illicit Drug Use: denies illicit drug use Living Will? no Functional Ability ADLs Needs Assist: dressing, eating, toileting, bathing. Ambulation: non-ambulatory IADLs Needs Assist: shopping, housework, finances, food prep, telephone, transportation, medication admin. Review of Systems Review of Systems Constitutional: Reports: see HPI. EENTM: Reports: see HPI. Cardiovascular: Reports: see HPI. Respiratory: Reports: see HPI. GI: Reports: see HPI. Genitourinary: Reports: see HPI. Musculoskeletal: Reports: see HPI. Skin: Reports: see HPI. Neurological/Psychological: Reports: see HPI. Hematologic/Endocrine: Reports: see HPI. Immunologic/Allergic: Reports: see HPI. Exam & Diagnostic Data Last 24 Hrs of Vital Signs/I&O Vital Signs Date Time Temp Pulse Resp B/P B/P Pulse O2 O2 Flow FiO2 Mean Ox Delivery Rate 09/28 2211 99.2 105 20 102/60 97 Room Air 09/28 1635 99.4 82 18 100/60 100 Room Air 09/28 1315 99.1 77 16 103/64 99 Room Air 09/28 1145 96 Room Air Room Air Intake & Output 09/29 0800 09/29 0000 09/28 1600 Intake Total 600 240 Output Total Balance 600 240 Intake, IV 600 Intake, Oral 240 Patient 84 lb 15.99 oz Weight Weight Reported by Patient Measurement Method Physical Exam General Appearance Intelectually disabled, Non ambulatory, Non-verbal Skin No Rashes Skin Temp/Moisture Exam: Warm/Dry Sepsis Skin Exam (color): Normal for Ethnicity HEENT Atraumatic Neck Supple, No JVD, No thryomegaly, No LAD Lymphatic Axillary nl, Cervical nl Cardiovascular Regular Rate, Normal S1, Normal S2 Lungs Clear to Auscultation, Normal Air Movement Abdomen Normal Bowel Sounds, Soft, No Tenderness, No Hepatospenomegaly, No Masses Extremities Normal Pulses, No Tenderness/Swelling Vascular Normal Pulses, Pulses Symmetrical Sepsis Peripheral Pulse Location: Dorsalis Pedis Sepsis Peripheral Pulse Exam: Normal Sepsis Cap Refill Exam: <2 Sec Reproductive (MALE) Hard mass 7x8cm in right testes, left testes decended and in place Assessment/Plan Assessment: The patient is a 31-year-old male, with past medical history significant for seizure disorder (on Depakote, carbamazepine) and cerebral palsy, intellectual disability, non-ambulatory, nonverbal, who was admitted to the ER from last night chief complaint of not having a bowel movement. Imaging showed the fracture of left femoral, nondisplaced. Also consult was done, no surgical intervention is known. The patient had a mass in the right testicle which is suspicious for malignancy. Urology consult was done. They will decide about the mass. As Ranked By This Provider Problem List: 1. Fracture of femoral neck, left 2. Testicular mass 3. Seizure disorder Core Measures/Misc (11/05) Acute Coronary Syndrome ACS Diagnosis: No Congestive Heart Failure Congestive Heart Failure Diagnosis No Cerebrovascular Accident CVA/TIA Diagnosis: No VTE (View Protocol) VTE Risk Factors Immobility No Mechanical VTE Prophylaxis d/t N/A MechProphylax Ordered No VTE Pharm Prophylaxis d/t NA PharmProphylax ordered Sepsis (View protocol) Sepsis Present: No If YES complete Sepsis Event Note If YES complete Sepsis Event Note Triston Dyson MD 09/28/17 1543: Core Measures/Misc (11/05) Sepsis (View protocol) If YES complete Sepsis Event Note If YES complete Sepsis Event Note Resident Review Statement Other Findings: Patient is a 31-year-old male with past medical history significant for cerebral palsy, intellectual disability, seizures, nonverbal at baseline, presenting to [place] ED after being brought in by his mother for received abdominal discomfort. Patient's mother was present at the time of interview and reports that over the past 2 weeks the patient has not been feeling well and was brought into the ED one week prior at which point he was diagnosed with proctitis changes and was sent home on a week of Augmentin. Reports that patient is not his usual self and was crying and appeared uncomfortable at daycare today as well as one being shifted from bed to chair. Patient's mother and reports that he did fall 2 weeks ago from bed. Reports that at baseline patient is nonverbal and does not follow commands however does move all extremities. States that he fell after she forgot to place pillows around his bed. Patient has reportedly had decreased bowel movements which is normal for him. Denies bright red blood per rectum or black stools. Past medical history: As above, undescended testicle followed by Dr. Neil Past surgical history: Corrective eye surgery Social history: Patient is wheelchair and bed bound, is nonverbal at baseline, his mother is his medical scribe, patient attends a daycare program Medications: Carbamazepine 200 mg 2 tablets twice a day, Depakote sprinkle 125 mg capsule 7 Capsules 3 times a day, ensure liquid, ibuprofen Allergies: Denies any allergies to any medications In the ED: Patient received 1 L normal saline bolus 2, Ativan 1 mg IV 1 On admission: Vitals: MAXIMUM TEMPERATURE 99.1, heart rate 70s to 90s, respiration rate 16-20, blood pressure initially 80/54 after fluid hydration went up to 110/63, saturating at 99-100% on room air Gen: resting in bed comfortably, nonverbal at baseline, not cooperative with exam, cachectic HEENT: normocephalic, nontraumatic, MMM CVS:RRR, S1 and S2, no murmurs appreciated Lungs:CTAB Abdomen: soft, nt, nd +bs Extremities: contractures in upper and lower extremities, area of ecchycmosis at the right hip, pulses palpable Neuro: grossly moving all extremities, unable to perform complete neuro exam as patient does not follow instructions Labs: WBC 8.2, H&H 9 and 27.4, MCV 97.6, platelet 326 Sodium 141, potassium 5.4, chloride 104, bicarbonate 31, BUN 22, creatinine 0.4, glucose 88, lactic acid 3.8, LFTs within normal limits, albumin 3.3, calcium 9.3 Imaging: CT Abd/Pelvis: Rectal inflammatory changes persist. There is some increased air around and between loops of bowel in the pelvis which could conceivably represent extraluminal air from an area of perforation but most likely represents unopacified bowel loops filled with air.. A repeat CT scan with rectal Gastrografin would be definitive if clinical condition warrants. This was discussed Dr. Reed Osuna. CT Pelvis: 1. Capacious rectosigmoid colon with no evidence of bowel perforation seen. The rectal contrast remains intraluminal with no contrast extravasation seen. 2. A few isolated sigmoid colonic diverticula are seen. No evidence of acute diverticulitis. 3. Acute minimally displaced left femoral neck fracture with partial impaction and small hemorrhagic joint effusion. 4. Large 6.8 x 7.5 cm mass in the right hemiscrotum, incompletely imaged. This is suspicious for a right testicular neoplasm. Further assessment with testicular ultrasound is recommended. Patient is a 31-year-old male with history of cerebral palsy and intellectual disability, seizures found to have a variably displaced left femoral neck fracture with partial impaction and small hemorrhagic joint effusion and a large right hemiscrotal mass suspicious for malignancy. Patient was admitted to the general medicine floor for management of the followin. Minimally displaced left femoral neck fracture 2. Right scrotal mass suspcious for malignancy 3. H/O Cerebral palsy, Intellectual disability, Seizures Plan: Admit to gen med Continue home medications Follow up with ortho concerning hip fracture - discussed with Dr. Duncan who has spoken to the patient's mother - at this time there is no plan to go to [place] Urology consulted for testicular mass Repeat CBC and BEP Pain control DVT PPx: ALPS, Lovenox Code: full code Sera MCCOY,Irene 09/28/17 1655: Core Measures/Misc (11/05) Sepsis (View protocol) If YES complete Sepsis Event Note If YES complete Sepsis Event Note Attending MD Review Statement Attending Statement Attending MD Statement: examined this patient, discuss w/resident/PA/CARBONATION TESTER, agreed w/resident/PA/CARBONATION TESTER, reviewed EMR data (avail), discussed with case mgmt, reviewed images Attending Assessment/Plan: 31-year-old male past medical history of mental retardation, cerebral palsy and seizure disorder. Patient was brought in by his mother as he was in obvious discomfort, she had worries about constipation. Initially when he was in the ER last night his CT was suspicious for perforation however the repeat CT shows that it is all bowel loops and not perforation. He does have however a left femoral neck fracture and a large right hemiscrotal 6-7 cm mass. He is now getting an ultrasound of the scrotal area. Orthopedics knows about him and will likely take him for surgery later today or first thing tomorrow morning. He had a lactic acidosis with mild hyperkalemia got hydrated in the ER and will need to recheck that. Calling urology for the scrotal mass. Mom updated.
--- NOTE | 2017-09-28 15:38 | Cons- Orthopedic ---
General Information and HPI Consulting Request Date of Consult: 09/28/17 Requested By: Marley Berry MD Reason for Consult: Left hip femoral neck fracture Source of Information: family Exam Limitations: physical impairment History of Present Illness: 31-year-old male, nonverbal, severe MR, CP presents with mother to the ER yesterday evening with pain of unknown origin. Initially on abdominal CT scan it was thought the patient had proctitis/colitis with a possible microperforation however after patient had a large bowel movement with rectal exam and a CT scan of the pelvis with contrast per rectum, there is no acute pathology in the rectum/colon however they did note incidental finding of a left hip femoral neck fracture and orthopedics was consulted. According to the mother who is the patient's primary upset operator, he did sustain a fall out of bed approximately 2-3 weeks ago although she is unsure. He also may have had a fall unbeknownst to the mother under the supervision of another upset operator. She did not notice any significant bruising of the left hip. He exhibits signs of pain with grimacing and wincing when turning and moving the leg in bed. Allergies/Medications Allergies: Coded Allergies: NO KNOWN ALLERGIES (12/22/15) Home Med List: Amoxicillin/Potassium Clav (Augmentin 250-62.5 MG/5 Ml) 250 MG-62.5 MG/5 ML SUSP.RECON 10 ML PO TID PROCTITIS Carbamazepine 200 MG CPMP.12HR 2 CAP PO BID seizure (Reported) Divalproex Sodium (Depakote Sprinkle) 125 MG CAP.SPRINK 7 CAP PO TID seizure (Reported) Ibuprofen (Children's Motrin) 100 MG/5 ML ORAL.SUSP 20 ML PO Q6P fever or pain Lactose-Reduced Food (Ensure Liquid) 237 ML LIQUID 1 CAN PO TID SUPPLEMENTAL NUTRITION (Reported) Past History Medical History Neurological: seizure, CEREBRAL PALSY MR Mental retardation EENT: NONE Cardiovascular: NONE Respiratory: ASP PNA Gastrointestinal: NONE Hepatic: NONE Renal: NONE Musculoskeletal: NONE Psychiatric: NONE Endocrine: NONE Blood Disorders: NONE Cancer(s): NONE DOCUMENT PHOTOGRAPHER/Reproductive: NONE Surgical History Pertinent Surgical History: non-contributory Psychosocial History Who Do You Live With? parent Services at Home: None Primary Language: nonverbal ETOH Use: denies use Illicit Drug Use: denies illicit drug use Living Will? no Functional Ability ADLs Needs Assist: dressing, eating, toileting, bathing. Ambulation: non-ambulatory IADLs Needs Assist: shopping, housework, finances, food prep, telephone, transportation, medication admin. Review of Systems Review of Systems: Review of systems: See HPI, limited Constitutional: No chills fever or weight loss Cardiovascular: No ankle swelling Skin: No jaundice no rashes Respiratory: No cough GI: no vomiting Neurologic: No change from baseline Heme/endocrine: No bruising no bleeding no polyuria or polydipsia Immunology: No splenectomy or history of AIDS Exam & Diagnostic Data Vital Signs and I&O Vital Signs Date Time Temp Pulse Resp B/P B/P Pulse O2 O2 Flow FiO2 Mean Ox Delivery Rate 09/28 1315 99.1 77 16 103/64 99 Room Air 09/28 1145 96 Room Air Room Air 09/28 0600 98.0 91 20 113/71 100 Room Air 09/28 0330 90 20 110/68 99 Room Air 09/28 0032 Room Air 09/27 2044 98.1 95 20 106/63 100 09/27 1759 99 09/27 1757 86 14 80/54 99 Room Air Intake & Output 09/28 1600 09/28 0809/28 0000 09/27 1600 09/27 0800 09/27 0000 Intake Total Output Total Balance Patient 110 lb Weight Weight Estimated Measurement Method Physical Exam: Cachectic young man, looks stated age, lying in bed, contraction of the arms and legs noted HEENT: Atraumatic, extraocular motion intact Neck: Supple, no lymphadenopathy Respiratory: No respiratory distress Extremities: No edema, no calf pain Flexion contracture of the left hip about 20-30 and flexion contracture of the left knee approximately 60. Range of motion of the left hip does not appear to be significantly painful however it is limited due to patient's flexion contracture. No swelling, no bruising Neuro: Alert, at baseline per mother Skin: Warm and dry, no rash on exposed skin Last 24 Hours of Labs: Laboratory Tests 09/27 09/27 09/27 1925 1920 1848 Chemistry Sodium (137 - 145 mmol/L) 141 Potassium (3.5 - 5.1 mmol/L) 5.4 H Chloride (98 - 107 mmol/L) 104 Carbon Dioxide (22 - 30 mmol/L) 31 H Anion Gap (5 - 16) 6 BUN (9 - 20 mg/dL) 22 H Creatinine (0.7 - 1.2 mg/dL) 0.4 L Estimated GFR (>60 ml/min) > 60 BUN/Creatinine Ratio (7 - 25 %) 55.0 H Glucose (65 - 99 mg/dL) 88 Lactic Acid (0.7 - 2.1 mmol/L) 3.8 H Calcium (8.4 - 10.2 mg/dL) 9.3 Total Bilirubin (0.2 - 1.3 mg/dL) 0.3 AST (17 - 59 U/L) 30 ALT (21 - 72 U/L) 29 Alkaline Phosphatase (< 127 U/L) 88 Total Protein (6.3 - 8.2 g/dL) 6.6 Albumin (3.5 - 5.0 g/dL) 3.3 L Globulin (1.9 - 4.2 gm/dL) 3.3 Albumin/Globulin Ratio (1.1 - 2.2 %) 1.0 L Hematology CBC w Diff NO MAN DIFF REQ WBC (4.8 - 10.8 /CUMM) 8.2 RBC (4.70 - 6.10 /CUMM) 2.80 L Hgb (14.0 - 18.0 G/DL) 9.0 L Hct (42 - 52 %) 27.4 L MCV (80.0 - 94.0 FL) 97.6 H MCH (27.0 - 31.0 PG) 32.2 H MCHC (33.0 - 37.0 G/DL) 33.0 RDW (11.5 - 14.5 %) 14.0 Plt Count (130 - 400 /CUMM) 326 MPV (7.4 - 10.4 FL) 8.5 Gran % (42.2 - 75.2 %) 75.0 Lymphocytes % (20.5 - 51.1 %) 17.5 L Monocytes % (1.7 - 9.3 %) 6.8 Eosinophils % (0 - 5 %) 0.5 Basophils % (0.0 - 2.0 %) 0.2 Absolute Granulocytes (1.4 - 6.5 /CUMM) 6.1 Absolute Lymphocytes (1.2 - 3.4 /CUMM) 1.4 Absolute Monocytes (0.10 - 0.60 /CUMM) 0.6 Absolute Eosinophils (0.0 - 0.7 /CUMM) 0 Absolute Basophils (0.0 - 0.2 /CUMM) 0 Urines Urine Color Cancelled Urine Clarity Cancelled Urine pH Cancelled Ur Specific [place] Cancelled Urine Protein Cancelled Urine Ketones Cancelled Urine Nitrite Cancelled Urine Bilirubin Cancelled Urine Urobilinogen Cancelled Ur Leukocyte Esterase Cancelled Ur Microscopic Cancelled Urine Hemoglobin Cancelled Urine Glucose Cancelled Imaging Results: PATIENT: CHANI DUBON PRESENT AGE: 31 PATIENT ACCOUNT NO: [id number] : 87 LOCATION: [facility] ORDERING PHYSICIAN: Reed Osuna MD SERVICE DATE: 09/28/17 EXAM TYPE: CAT - CT PELVIS WO IV CONTRAST EXAMINATION: CT PELVIS WITHOUT CONTRAST CLINICAL INFORMATION: Abdominal pain. Presumptive diagnosis of colon perforation. COMPARISON: CT scan of the abdomen and pelvis dated 09/27/2017, 09/21/2017, 08/05/2017, and 12/22/2015. TECHNIQUE: Helical scanning was performed with submillimeter collimation through the pelvis after the administration of 750 mL of dilute Gastroview contrast via gravity drip infusion through a rectal tube. Sagittal and coronal multiplanar 2-D reconstructions were obtained. DLP: 170.10 mGy-cm FINDINGS: BOWEL LOOPS: The rectal contrast is seen distending a capacious rectosigmoid colon and distal descending colon. There is also some contrast seen within the right colon. No evidence of contrast extravasation is seen. No free air or free fluid is noted. There is a prominent colonic diverticulum seen at the distal sigmoid colon level (series 2, image 21). Included small bowel loops are unremarkable, including the terminal ileum. The appendix is not definitely visualized. BLADDER: Partially distended and unremarkable. LYMPHOVASCULAR STRUCTURES: Unremarkable. PELVIC ORGANS: Prostate gland and seminal vesicles are unremarkable. There is incomplete inclusion of the scrotum. The right hemiscrotum is markedly enlarged compared to the left side with a heterogeneous 6.8 x 7.5 cm mass seen. This was not included in the [id number] of the prior CT scans of the abdomen from 09/21/2017, 08/05/2017 and 12/22/2015 and is also only partially included in the [id number] of today's exam. OSSEOUS STRUCTURES: There is an acute minimally displaced left femoral neck fracture with partial impaction seen, new from 08/05/2017. A small left hip joint effusion is seen appearing minimally hyperdense, likely due to a hemorrhagic component. IMPRESSION: 1. Capacious rectosigmoid colon with no evidence of bowel perforation seen. The rectal contrast remains intraluminal with no contrast extravasation seen. 2. A few isolated sigmoid colonic diverticula are seen. No evidence of acute diverticulitis. 3. Acute minimally displaced left femoral neck fracture with partial impaction and small hemorrhagic joint effusion. 4. Large 6.8 x 7.5 cm mass in the right hemiscrotum, incompletely imaged. This is suspicious for a right testicular neoplasm. Further assessment with testicular ultrasound is recommended. Findings discussed with Dr. Slater 09/28/2017, 1:15 PM. DICTATED BY: Jerry MCCOY,Zakiya Freeman DATE/TIME DICTATED:09/28/171250 STONER HAND:ELIZABETH DATE/TIME TRANSCRIBED:09/28/171250 Assessment/Plan Assessment/Plan Patient has an acute left hip femoral neck fracture based on CT scan. Exact age of this injury is unknown. The fracture is not significantly displaced Discussed with Dr. ANDERSEN, discussed with patient's mother who is the patient's primary upset operator, usually this will require surgical intervention however patient is a nonambulator and is significantly contracted so much so that percutaneous pinning, which would be the usual treatment for this fracture, may not be technically possible as he may not be able to be put on the fracture table with his hip and knee in full extension which is the positioning required for the surgery. Nonoperative management may be required for this fracture. This will be discussed further in detail with patient's mother and Glenroy Andersen MD later this evening. Problem List: 1. Fracture of femoral neck, left Consult Acknowledgment - Thank you for your consult request.
--- NOTE | 2017-09-28 15:44 | ULTRASOUND REPORT ---
EXAMINATION: US SCROTUM CLINICAL INFORMATION: Right testicular swelling. Abnormal CT scan. Question mass. COMPARISON: CT scan of the pelvis from earlier today. TECHNIQUE: A sonogram of the scrotum was performed assessing moreno-scale appearance and color Doppler flow. Spectral analysis and Doppler interrogation was performed. FINDINGS: RIGHT: Right testicle is abnormally enlarged and measures 9.3 x 4.9 x 5.7 cm, volume 184.4 mL. Parenchymal echotexture is very heterogeneous with nodular parenchymal pattern seen. At least 3 discrete measurable testicular masses are seen, appearing hypoechoic with well-circumscribed margins and no intralesional flow, measuring 1.7 x 1.3 x 1.4 cm; 1.2 x 1.3 x 1.1 cm, and 0.7 x 1.0 x 1.4 cm. With color Doppler imaging, normal arterial and venous intratesticular flow is visualized. Multiple punctate parenchymal calcifications are seen. Right epididymal head is normal in size. No right hydrocele or varicocele is seen. There is a trace amount of free fluid around the right testicle. LEFT: Left testicle measures 3.8 x 2.0 x 2.4 cm, volume 13.0 mL. Parenchymal echotexture is normal. No focal testicular parenchymal lesions are visualized. The few punctate calcifications is seen in the testicular parenchyma, less numerous than on the contralateral side. Normal arterial and venous intratesticular flow is visualized. Left epididymal head is normal in size. No left varicocele is seen. There is a trace amount of free fluid around the left testicle. IMPRESSION: 1. Markedly enlarged heterogeneous and edematous right testicle is seen with complex nodular parenchymal pattern seen. Superimposed 3 discrete measurable hypoechoic masses are noted. Normal arterial and venous flow in the right testicle is seen. Findings are most suspicious for a nonseminomatous germ cell tumor or other neoplastic process such as primary or secondary testicular lymphoma or metastatic disease. Granulomatous diseases may have a similar appearance. Close clinical correlation is requested. 2. Bilateral testicular microlithiasis, right greater than left. 3. Left testicle otherwise unremarkable. 4. Bilateral epididymides are normal.
--- NOTE | 2017-09-28 15:56 | RADIOLOGY REPORT ---
EXAMINATION: XR HIP, LEFT CLINICAL INFORMATION: Fracture. COMPARISON: CT images of pelvis from 08/05/2017, 09/21/2017 and 09/28/2017. TECHNIQUE: Two views of the left hip. FINDINGS: A mildly impacted, transverse fracture of the femoral neck is not significantly displaced. This fracture is new compared to 08/05/2017. The femoral head is well-positioned within the acetabulum. Bones are diffusely osteopenic. IMPRESSION: Acute, mildly impacted fracture of the left femoral neck.
[2017-09-28 16:35] VITALS: BP 100/60
--- NOTE | 2017-09-28 19:15 | PN- Orthopedic ---
Surgical Brief Attending Note Brief Attending Note: This patient is a 31-year-old man who has a complicated history including CP, MR who is nonambulatory and nonverbal. He was brought in by family last Sunday for possible injury that occurred about 3 weeks ago from a fall at home. There has been noted reaction to changing positions and moving according to the mother who I spoke to today. Due to these ongoing apparent symptoms of pain she brought him back to the emergency room for further evaluation. Diagnosis of proctitis was given previously and he was being treated with antibiotics and medications. However, due to ongoing symptoms further evaluation including CT scan was done which showed a impacted femoral neck fracture on the left side. We had a discussion concerning treatment for this today. I did explain to his mother that the treatment for hip fractures is typically surgical. However, there are some complicating issues with this patient. He does have significant flexion contracture of both knee and hip due to his nonambulatory status and wheelchair bound status. This precludes the ability to place on the fracture table safely and be able to perform the standard pinning of this fracture. Also, fracture appears to be impacted by CT scan and more stable. Also fracture appeared to have happened around 3 weeks ago based on the history given by the mother. There was one episode of fall at that time and no definite injuries following that. In bed, today, he lies on his left side comfortably asleep. He does have his knee flexed up to approximately 100 and hip flexed to about 80. There does not appear to be any external trauma. No visible swelling of either lower extremity. Rotation cannot be completely determined based on his position in bed as well as his flexed posture but does appear to be fairly symmetrical. We discussed the treatment plan. At this point, no surgery is planned. I do feel there is some inherent stability of this type of fracture due to its impaction and alignment and has not shown any sign of displacement over the past 3 weeks. Future treatment can be determined based on clinical progress. If there is increase in reaction to motion and apparent pain increase then repeat studies can be done to assess for displacement. Logistically, follow-up x-rays would be sufficient as long as patient can be transported for studies to be completed. Mother appears to be comfortable with this decision. Patient can be discharged when medically cleared. Analgesics including Tylenol and Motrin which have been given previously can be continued. Stronger pain medication can be considered as well but patient has had severe constipation recently which may be an issue with the stronger pain medications. I reviewed this plan with the patient's mother and also discussed with surgical PA previously. I also spoke with planner internship /resident on [id number] concerning plan and discussion
[2017-09-28 21:49] LABS: ABSOLUTE BASOPHIL COUNT 0 /CUMM (0.0-0.2); ABSOLUTE EOSINOPHIL COUNT 0 /CUMM (0.0-0.7); ABSOLUTE GRANULOCYTE CT 3.9 /CUMM (1.4-6.5); ABSOLUTE LYMPH COUNT 1.6 /CUMM (1.2-3.4); ABSOLUTE MONOCYTE COUNT 0.5 /CUMM (0.10-0.60); BASOPHIL % 0.5 % (0.0-2.0); EOSINOPHIL % 0.7 % (0-5); GRANULOCYTE % 64.1 % (42.2-75.2); MEAN CORPUSCULAR HGB 32.1 PG (27.0-31.0); MEAN CORPUSCULAR HGB CONC 33.3 G/DL (33.0-37.0); MEAN CORPUSCULAR VOLUME 96.5 FL (80.0-94.0); MEAN PLATELET VOLUME 8.2 FL (7.4-10.4); PLATELET COUNT 286 /CUMM (130-400); RBC DISTRIBUTION WIDTH 13.8 % (11.5-14.5); WHITE BLOOD CELL COUNT 6.1 /CUMM (4.8-10.8)
[2017-09-28 22:11] VITALS: BP 102/60
[2017-09-29 06:19] VITALS: BP 100/58
--- NOTE | 2017-09-29 08:04 | PN- Housestaff ---
See Addendum Subjective Follow-up For: 1. Fracture of femoral neck, left 2. Testicular mass 3. Seizure disorder Subjective: I visited the patient this morning. He was awake laying back in his bed in no acute distress. Nonverbal. No major complaints overnight. No fever. No major pain complaints reported by his mother who was present in the room. Review of Systems Constitutional: Reports: see HPI. Objective Last 24 Hrs of Vital Signs/I&O Vital Signs Date Time Temp Pulse Resp B/P B/P Pulse O2 O2 Flow FiO2 Mean Ox Delivery Rate 09/29 0619 98.4 108 20 100/58 96 Room Air 09/28 2211 99.2 105 20 102/60 97 Room Air 09/28 1635 99.4 82 18 100/60 100 Room Air 09/28 1315 99.1 77 16 103/64 99 Room Air 09/28 1145 96 Room Air Room Air Intake & Output 09/29 1600 09/29 0800 09/29 0000 Intake Total 600 240 Output Total Balance 600 240 Intake, IV 600 Intake, Oral 240 Number 0 Bowel Movements Patient 84 lb 15.99 oz Weight Weight Reported by Patient Measurement Method Physical Exam General Appearance: No Acute Distress Skin: No Rashes Skin Temp/Moisture Exam: Warm/Dry Cardiovascular: Regular Rate, Normal S1, Normal S2 Lungs: Clear to Auscultation, Normal Air Movement Abdomen: Normal Bowel Sounds, Soft, No Tenderness Assessment/Plan Assessment: The patient is a 31-year-old male, with past medical history significant for seizure disorder (on Depakote, carbamazepine) and cerebral palsy, intellectual disability, non-ambulatory, nonverbal, who was admitted to the ER from last night chief complaint of not having a bowel movement. Imaging showed the fracture of left femoral, nondisplaced. Also consult was done, no surgical intervention is known. The patient had a mass in the right testicle which is suspicious for malignancy. Urology consult was done. They will decide about the mass. Problem List: 1. Fracture of femoral neck, left 2. Testicular mass 3. Seizure disorder Pain Ratin (Not obtainable) Pain Location: probably Hip Pain Goal: Pain 4 or less Pain Plan: Lidocaine patch Ibuprofen Tomorrow's Labs & Rationales: NA
[2017-09-29 09:54] LABS: ABSOLUTE BASOPHIL COUNT 0 /CUMM (0.0-0.2); ABSOLUTE EOSINOPHIL COUNT 0 /CUMM (0.0-0.7); ABSOLUTE GRANULOCYTE CT 3.3 /CUMM (1.4-6.5); ABSOLUTE LYMPH COUNT 1.3 /CUMM (1.2-3.4); ABSOLUTE MONOCYTE COUNT 0.5 /CUMM (0.10-0.60); BASOPHIL % 0.3 % (0.0-2.0); EOSINOPHIL % 0.4 % (0-5); GRANULOCYTE % 65.1 % (42.2-75.2); HEMATOCRIT 25.4 % (42-52); MEAN CORPUSCULAR HGB 32.9 PG (27.0-31.0); MEAN CORPUSCULAR VOLUME 96.7 FL (80.0-94.0); MEAN PLATELET VOLUME 8.1 FL (7.4-10.4); PLATELET COUNT 292 /CUMM (130-400); RBC DISTRIBUTION WIDTH 13.9 % (11.5-14.5); RED BLOOD CELL CT 2.63 /CUMM (4.70-6.10); WHITE BLOOD CELL COUNT 5.1 /CUMM (4.8-10.8)
--- NOTE | 2017-09-29 12:16 | Cons- Urology ---
General Information and HPI Consulting Request Date of Consult: 09/29/17 Requested By: Marley Berry MD Reason for Consult: right testicular mass: left undescended testicle Source of Information: family, old records Exam Limitations: unable to give history History of Present Illness: Pt on CT noted to have abnormal right testicle: confirmed on US. Pt has been followed by Dr. Neil regarding this issue. The patient is a 31-year-old male, with past medical history significant for seizure disorder (on Depakote, carbamazepine) and cerebral palsy, intellectual disability, non-ambulatory, nonverbal, who was admitted to the ER from last night chief complaint of not having a bowel movement. Her mother gives a history of falling from bed about 3 weeks ago because she had forgotten to put but the body pillow on the bed for him. His brother had found him on the ground and notified his mother. He was taken to ER at [facility] 1 week ago, with fever, he was prescribed Augmentin. Due to possible proctitis. These medications did not help the situation and the family decided to bring him back, CT abdomen was done which showed a impacted femoral neck fracture on the left side. Orthopedic surgeon has seen the family and talks to them that at this time based on the condition of the patient no surgery is planned for the fracture. They report no history of blood in urine, blood in the stool, no chills but one episode of fever last Sunday. He attends day program. He also has a scrotal sizable mass (7 x 8 cm) on the right side. When I asked the family about the chronicity of this mass, the mother could not say whether it was new or old. Past medical history: Cerebral palsy, intellectual disability, nonambulatory, nonverbal, seizure disorder, deformity in extremities. Allergies/Medications Allergies: Coded Allergies: NO KNOWN ALLERGIES (12/22/15) Home Med List: Amoxicillin/Potassium Clav (Augmentin 250-62.5 MG/5 Ml) 250 MG-62.5 MG/5 ML SUSP.RECON 10 ML PO TID PROCTITIS Carbamazepine 200 MG CPMP.12HR 2 CAP PO BID seizure (Reported) Divalproex Sodium (Depakote Sprinkle) 125 MG CAP.SPRINK 7 CAP PO TID seizure (Reported) Ibuprofen (Children's Motrin) 100 MG/5 ML ORAL.SUSP 20 ML PO Q6P fever or pain Lactose-Reduced Food (Ensure Liquid) 237 ML LIQUID 1 CAN PO TID SUPPLEMENTAL NUTRITION (Reported) Current Medications: Current Medications Sig/Leah Start time Last Medication Dose Route Stop Time Status Admin Acetaminophen 650 MG Q6P PRN 09/28 1914 AC PO Carbamazepine 400 MG BID 09/28 2099 AC 09/29 PO 815 Dextrose/Sodium 1,000 ML .[id number] 09/28 1899 AC 09/29 Chloride IV 0124 Divalproex Sodium 875 MG TID 09/28 2099 AC 09/29 PO 815 Docusate Sodium 100 MG BID 09/28 2099 AC 09/29 PO 0823 Heparin Sodium 5,000 UNIT Q8 09/28 2199 AC 09/29 (Porcine) SC 0614 Ibuprofen 600 MG Q6P PRN 09/28 1914 AC PO Lidocaine 1 PAT DAILY NEEDED PRN 09/28 1914 AC TOP Ondansetron HCl 4 MG Q6P PRN 09/28 1914 AC IV Polyethylene Glycol 17 GM AT BEDTIME 09/28 2099 AC 09/28 PO 2099 Senna/Docusate Sodium 1 TAB AT BEDTIME 09/28 2099 AC 09/28 PO 214 Past History Medical History Blood Transfusion Hx: No Neurological: seizure, CEREBRAL PALSY MR Mental retardation EENT: NONE Cardiovascular: NONE Respiratory: ASP PNA Gastrointestinal: NONE Hepatic: NONE Renal: NONE Musculoskeletal: NONE Psychiatric: NONE Endocrine: NONE Blood Disorders: NONE Cancer(s): NONE PACKING ROOM INSPECTOR/Reproductive: NONE Surgical History Pertinent Surgical History: non-contributory Psychosocial History Where Do You Live? Home Who Do You Live With? parent Services at Home: None Primary Language: nonverbal Smoking Status: Never Smoked ETOH Use: denies use Illicit Drug Use: denies illicit drug use Living Will? no Functional Ability ADLs Needs Assist: dressing, eating, toileting, bathing. Ambulation: non-ambulatory IADLs Needs Assist: shopping, housework, finances, food prep, telephone, transportation, medication admin. Exam & Diagnostic Data Vital Signs and I&O Vital Signs Date Time Temp Pulse Resp B/P B/P Pulse O2 O2 Flow FiO2 Mean Ox Delivery Rate 09/29 618 98.4 108 20 100/58 96 Room Air 09/28 2211 99.2 105 20 102/60 97 Room Air 09/28 1635 99.4 82 18 100/60 100 Room Air 09/28 1315 99.1 77 16 103/64 99 Room Air Intake & Output 09/29 0809/29 0000 09/28 1600 09/28 0000 Intake Total 600 240 Output Total Balance 600 240 Intake, IV 600 Intake, Oral 240 Number 0 Bowel Movements Patient 84 lb 15.99 oz 110 lb Weight Weight Reported by Patient Estimated Measurement Method Physical Exam General Appearance: well developed/nourished, no apparent distress, cachetic Head: atraumatic Neck: normal inspection Respiratory: normal breath sounds Cardiovascular: regular rate/rhythm Gastrointestinal: normal bowel sounds, soft Back: no vertebral tenderness Extremities: contracted Skin: intact, normal color Reproductive: Normal male genitalia (left unde.testicle) Last 24 Hours of Labs: Laboratory Tests 09/29 09/29 09/29 0908 0908 0908 Chemistry Sodium (137 - 145 mmol/L) 135 L Potassium (3.5 - 5.1 mmol/L) 3.8 Chloride (98 - 107 mmol/L) 98 Carbon Dioxide (22 - 30 mmol/L) 31 H Anion Gap (5 - 16) 5 BUN (9 - 20 mg/dL) 9 Creatinine (0.7 - 1.2 mg/dL) 0.4 L Estimated GFR (>60 ml/min) > 60 BUN/Creatinine Ratio (7 - 25 %) 22.5 Lactate Dehydrogenase (313 - 618 U/L) Cancelled 1441 H Alpha Fetoprotein Pending Total Testosterone (132 - 813 ng/dL) Cancelled 34.8 L Beta HCG, Quant (mIU/mL) Cancelled < 2.4 Hematology CBC w Diff NO MAN DIFF REQ WBC (4.8 - 10.8 /CUMM) 5.1 RBC (4.70 - 6.10 /CUMM) 2.63 L Hgb (14.0 - 18.0 G/DL) 8.6 L Hct (42 - 52 %) 25.4 L MCV (80.0 - 94.0 FL) 96.7 H MCH (27.0 - 31.0 PG) 32.9 H MCHC (33.0 - 37.0 G/DL) 34.0 RDW (11.5 - 14.5 %) 13.9 Plt Count (130 - 400 /CUMM) 292 MPV (7.4 - 10.4 FL) 8.1 Gran % (42.2 - 75.2 %) 65.1 Lymphocytes % (20.5 - 51.1 %) 24.5 Monocytes % (1.7 - 9.3 %) 9.7 H Eosinophils % (0 - 5 %) 0.4 Basophils % (0.0 - 2.0 %) 0.3 Absolute Granulocytes (1.4 - 6.5 /CUMM) 3.3 Absolute Lymphocytes (1.2 - 3.4 /CUMM) 1.3 Absolute Monocytes (0.10 - 0.60 /CUMM) 0.5 Absolute Eosinophils (0.0 - 0.7 /CUMM) 0 Absolute Basophils (0.0 - 0.2 /CUMM) 0 09/28 Chemistry Sodium (137 - 145 mmol/L) 136 L Cancelled Potassium (3.5 - 5.1 mmol/L) 5.1 Cancelled Chloride (98 - 107 mmol/L) 98 Cancelled Carbon Dioxide (22 - 30 mmol/L) 30 Cancelled Anion Gap (5 - 16) 8 Cancelled BUN (9 - 20 mg/dL) 10 Cancelled Creatinine (0.7 - 1.2 mg/dL) 0.5 L Cancelled Estimated GFR (>60 ml/min) > 60 BUN/Creatinine Ratio (7 - 25 %) 20.0 Cancelled Lactic Acid (0.7 - 2.1 mmol/L) 1.1 Hematology CBC w Diff NO MAN DIFF REQ WBC (4.8 - 10.8 /CUMM) 6.1 RBC (4.70 - 6.10 /CUMM) 2.90 L Hgb (14.0 - 18.0 G/DL) 9.3 L Hct (42 - 52 %) 28.0 L MCV (80.0 - 94.0 FL) 96.5 H MCH (27.0 - 31.0 PG) 32.1 H MCHC (33.0 - 37.0 G/DL) 33.3 RDW (11.5 - 14.5 %) 13.8 Plt Count (130 - 400 /CUMM) 286 MPV (7.4 - 10.4 FL) 8.2 Gran % (42.2 - 75.2 %) 64.1 Lymphocytes % (20.5 - 51.1 %) 26.2 Monocytes % (1.7 - 9.3 %) 8.5 Eosinophils % (0 - 5 %) 0.7 Basophils % (0.0 - 2.0 %) 0.5 Absolute Granulocytes (1.4 - 6.5 /CUMM) 3.9 Absolute Lymphocytes (1.2 - 3.4 /CUMM) 1.6 Absolute Monocytes (0.10 - 0.60 /CUMM) 0.5 Absolute Eosinophils (0.0 - 0.7 /CUMM) 0 Absolute Basophils (0.0 - 0.2 /CUMM) 0 09/28 09/28 1843 1532 Chemistry Lactic Acid (0.7 - 2.1 mmol/L) Cancelled 0.5 L Imaging Results: PATIENT: CHANI DUBON PRESENT AGE: 31 PATIENT ACCOUNT NO: [id number] : 87 LOCATION: [facility] ORDERING PHYSICIAN: Artis Slater MD SERVICE DATE: 09/28/17 EXAM TYPE: US - US-TESTICULAR EXAMINATION: US SCROTUM CLINICAL INFORMATION: Right testicular swelling. Abnormal CT scan. Question mass. COMPARISON: CT scan of the pelvis from earlier today. TECHNIQUE: A sonogram of the scrotum was performed assessing moreno-scale appearance and color Doppler flow. Spectral analysis and Doppler interrogation was performed. FINDINGS: RIGHT: Right testicle is abnormally enlarged and measures 9.3 x 4.9 x 5.7 cm, volume 184.4 mL. Parenchymal echotexture is very heterogeneous with nodular parenchymal pattern seen. At least 3 discrete measurable testicular masses are seen, appearing hypoechoic with well-circumscribed margins and no intralesional flow, measuring 1.7 x 1.3 x 1.4 cm; 1.2 x 1.3 x 1.1 cm, and 0.7 x 1.0 x 1.4 cm. With color Doppler imaging, normal arterial and venous intratesticular flow is visualized. Multiple punctate parenchymal calcifications are seen. Right epididymal head is normal in size. No right hydrocele or varicocele is seen. There is a trace amount of free fluid around the right testicle. LEFT: Left testicle measures 3.8 x 2.0 x 2.4 cm, volume 13.0 mL. Parenchymal echotexture is normal. No focal testicular parenchymal lesions are visualized. The few punctate calcifications is seen in the testicular parenchyma, less numerous than on the contralateral side. Normal arterial and venous intratesticular flow is visualized. Left epididymal head is normal in size. No left varicocele is seen. There is a trace amount of free fluid around the left testicle. IMPRESSION: 1. Markedly enlarged heterogeneous and edematous right testicle is seen with complex nodular parenchymal pattern seen. Superimposed 3 discrete measurable hypoechoic masses are noted. Normal arterial and venous flow in the right testicle is seen. Findings are most suspicious for a nonseminomatous germ cell tumor or other neoplastic process such as primary or secondary testicular lymphoma or metastatic disease. Granulomatous diseases may have a similar appearance. Close clinical correlation is requested. 2. Bilateral testicular microlithiasis, right greater than left. 3. Left testicle otherwise unremarkable. 4. Bilateral epididymides are normal. DICTATED BY: Zakiya Edwards MD DATE/TIME DICTATED:09/28/171523 LEASING REPRESENTATIVE:ELIZABETH DATE/TIME TRANSCRIBED:09/28/171523 CONFIDENTIAL, DO NOT COPY WITHOUT APPROPRIATE AUTHORIZATION. <Electronically signed in Other Vendor System> SIGNED BY: Zakiya Edwards MD [id number] Other Results: EXAM TYPE: CAT - CT ABD & PELVIS W IV CONTRAST EXAMINATION: CT ABDOMEN AND PELVIS WITH CONTRAST CLINICAL INFORMATION: Proctitis with concern for abscess with worsening pain. COMPARISON: None TECHNIQUE: Multidetector volumetric imaging was performed of the abdomen and pelvis following IV administration of 95 mL of Optiray 320 intravenous contrast. Sagittal and coronal reformatted images were obtained on the technologist's workstation. DLP: 253.50 mGy-cm FINDINGS: LUNG BASES: New atelectasis/patchy infiltrate and small left effusion are noted compared to the prior study. The right lung is clear. LIVER, GALLBLADDER, AND BILIARY TREE: The liver is normal in size, shape, and attenuation. No focal hepatic lesion or biliary ductal dilatation is present. The gallbladder is unremarkable with no evidence of radiopaque gallstones, gallbladder wall thickening, or obvious pericholecystic inflammatory changes. PANCREAS: Unremarkable. SPLEEN: Unremarkable. ADRENAL GLANDS: Unremarkable. KIDNEYS AND URETERS: The kidneys are normal in size, shape, and attenuation. No hydronephrosis, hydroureter, or calculi seen. No perinephric stranding. BLADDER: Unremarkable. GASTROINTESTINAL TRACT: The abnormal appearance of the rectosigmoid with wall thickening and pericolonic inflammatory changes are very similar to that noted previously. There is increased air between loops of bowel that could conceivably be extraluminal although, it is very difficult to be certain of this. A repeat CT scan with rectal contrast should be definitive if this is a consideration. No abnormal fluid collections are seen that with be drainable. ABDOMINAL WALL: No significant hernia is appreciated. LYMPH NODES: Normal. VASCULAR: Unremarkable. PELVIC VISCERA: Small amount of free fluid is noted in the pelvis anteriorly. The bladder appears normal. OSSEOUS STRUCTURES: Unremarkable. IMPRESSION: Rectal inflammatory changes persist. There is some increased air around and between loops of bowel in the pelvis which could conceivably represent extraluminal air from an area of perforation but most likely represents unopacified bowel loops filled with air.. A repeat CT scan with rectal Gastrografin would be definitive if clinical condition warrants. This was discussed Dr. Reed Osuna. DICTATED BY: Aman Arenas MD DATE/TIME DICTATED:09/27/172034 LEASING REPRESENTATIVE:ELIZABETH DATE/TIME TRANSCRIBED:09/27/172034 CONFIDENTIAL, DO NOT COPY WITHOUT APPROPRIATE AUTHORIZATION. <Electronically signed in Other Vendor System> SIGNED BY: Aman Arenas MD 09/27/17 4707 Assessment/Plan Assessment/Plan Pt with right testicle mass: known since Feb 2017/Recommend tumor markers draw now-will proceed with further intervention if needed in near future:no surgery planned at this time-will inform Dr. Hutchinson upon return. Copies To: Jolynn MCCOY,Reed Atkins; Micky Medina MD Consult Acknowledgment - Thank you for your consult request. Attending MD Review Statement Attending Statement Attending MD Statement: examined this patient, discuss w/resident/PA/ANIMAL CHIROPRACTOR Attending Assessment/Plan: Pt with right testicle mass: known since Feb 2017/Recommend tumor markers draw now-will proceed with further intervention if needed in near future:no surgery planned at this time-will inform Dr. Hutchinson upon return.
[2017-09-29 15:38] VITALS: BP 100/60
[2017-09-29 22:17] VITALS: BP 100/60
[2017-09-30 07:22] VITALS: BP 104/68
[2017-09-30 08:37] LABS: ABSOLUTE BASOPHIL COUNT 0 /CUMM (0.0-0.2); ABSOLUTE EOSINOPHIL COUNT 0 /CUMM (0.0-0.7); ABSOLUTE GRANULOCYTE CT 5.9 /CUMM (1.4-6.5); ABSOLUTE LYMPH COUNT 0.5 /CUMM (1.2-3.4); ABSOLUTE MONOCYTE COUNT 0.6 /CUMM (0.10-0.60); BASOPHIL % 0.3 % (0.0-2.0); EOSINOPHIL % 0 % (0-5); GRANULOCYTE % 83.8 % (42.2-75.2); HEMATOCRIT 26.6 % (42-52); MEAN CORPUSCULAR HGB 32.3 PG (27.0-31.0); MEAN CORPUSCULAR HGB CONC 33.5 G/DL (33.0-37.0); MEAN CORPUSCULAR VOLUME 96.5 FL (80.0-94.0); MEAN PLATELET VOLUME 7.9 FL (7.4-10.4); PLATELET COUNT 319 /CUMM (130-400); RBC DISTRIBUTION WIDTH 14.2 % (11.5-14.5); RED BLOOD CELL CT 2.76 /CUMM (4.70-6.10); WHITE BLOOD CELL COUNT 7.1 /CUMM (4.8-10.8)
--- NOTE | 2017-09-30 08:42 | CT SCAN REPORT ---
EXAMINATION: CT CHEST, ABDOMEN AND PELVIS WITHOUT CONTRAST CLINICAL INFORMATION: Fever 104.3 rectally. Patient nonverbal at baseline. Patient with mental retardation. Previously treated colitis and aspiration pneumonia. COMPARISON: CT scan of the pelvis dated 09/28/2017. CT scan of the abdomen and pelvis dated 09/27/2017 and 12/22/2015.. CT scan of the chest, abdomen and pelvis dated 09/21/2017 and 08/05/2017. TECHNIQUE: Multidetector volumetric imaging was performed from the base of the neck through the pubic symphysis. Sagittal and coronal reformatted images were obtained on the technologist workstation. DLP: 372.71 mGy-cm. FINDINGS: Evaluation is limited given difficulties with patient positioning and cooperation for the exam. CT SCAN OF THE CHEST: LUNGS: Interval development of a small left-sided posterior layering pleural effusion is seen with subjacent patchy and tree-in-bud type ill-defined nodular parenchymal opacities throughout the left lower lobe. Less extensive groundglass and ill-defined nodular opacities are seen throughout the left upper lobe and posteriorly in the right upper lobe. The right lung is otherwise clear. No pneumothorax is seen. The central airways are patent. LYMPHOVASCULAR STRUCTURES: Aortic and heart size normal. No pericardial effusion. No mediastinal, hilar or axillary adenopathy or free fluid collection. Small amount of soft tissue density is seen in the anterosuperior mediastinum with a triangular configuration, unchanged, consistent with mild residual thymic tissue. THYROID GLAND: Not included in the [id number] of this exam. BONES: Mild S-shaped thoracolumbar scoliosis and diffuse osteopenia are noted. CT SCAN OF THE ABDOMEN AND PELVIS: LIVER, GALLBLADDER, AND BILIARY TREE: The liver is normal in size, shape, and attenuation. No focal hepatic lesion on noncontrast imaging. No biliary ductal dilatation is present. The gallbladder is completely decompressed and not adequately assessed.. PANCREAS: Unremarkable on noncontrast imaging. SPLEEN, ADRENAL GLANDS: Unremarkable on noncontrast imaging. KIDNEYS AND URETERS: The kidneys are normal in size, shape, and attenuation. No hydronephrosis, hydroureter, or calculi seen. No perinephric stranding. BLADDER: Partially distended and unremarkable. PELVIC VISCERA: Again seen is a markedly enlarged and heterogeneous mass in the right hemiscrotum, incompletely visualized, corresponding to the enlarged heterogeneous testicle seen on prior ultrasound, suspicious for a testicular neoplasm. Prostate gland and seminal vesicles are unremarkable. GASTROINTESTINAL TRACT: Again seen is a large stool burden in the colon. The rectum is significantly dilated, measuring 6.7 cm in diameter and is filled with stool and residual contrast from prior rectal contrast administration. There is slight rectal and sigmoid colonic wall thickening and minimal surrounding mesenteric fat infiltration, suggesting fecal impaction and stercoral colitis. The small bowel loops are decompressed and unremarkable. The appendix is partially filled with fluid and air and is unremarkable. ABDOMINAL WALL: Several subcutaneous locules of air are seen, likely due to subcutaneous injection. LYMPH NODES, VASCULAR: Unremarkable. OSSEOUS STRUCTURES: Mild S-shaped thoracolumbar scoliosis and diffuse osteopenia are noted. A partially impacted minimally displaced left femoral neck fracture is again visualized. IMPRESSION: 1. Interval development of ill-defined airway associated nodular densities and diffuse groundglass opacities in the left lung and to a lesser extent in the posterior right upper lobe. Findings are suspicious for aspiration pneumonia. Associated small left-sided pleural effusion and dependent atelectasis are noted. 2. Large stool burden is seen throughout the colon and there is evidence of rectal fecal impaction and mild stercoral colitis involving the rectosigmoid colon. 3. Large incompletely imaged heterogeneous right testicular mass, suspicious for testicular neoplasm. 4. Minimally displaced subacute left femoral neck fracture.
--- NOTE | 2017-09-30 14:24 | PN- Housestaff ---
Eyal MCCOY,John 09/30/17 1423: Subjective Follow-up For: fever Subjective: Saw pt at bedside this AM. He had Tmax 104 rectally measured this AM. Bcx/ucx and owens scan was done. Scan showed c/o aspiration PNA so we started abx. He is non-verbal at baseline, but his mother in room stated that he seemed back to his baseline after the fever. He has good appetite. Review of Systems Constitutional: Reports: no symptoms. Objective Last 24 Hrs of Vital Signs/I&O Vital Signs Date Time Temp Pulse Resp B/P B/P Pulse O2 O2 Flow FiO2 Mean Ox Delivery Rate 09/30 1211 99.2 09/30 1112 100.7 09/30 0722 104.0 113 20 104/68 93 09/30 0630 102.8 09/30 0630 102.8 09/30 0524 104.3 09/30 0515 104.3 09/30 0000 98 Room Air 09/29 2217 98.4 100 22 100/60 96 09/29 1600 Room Air 09/29 1538 97.0 105 18 100/60 97 Intake & Output 09/30 1600 09/30 0800 09/30 0000 Intake Total 840 1100 Output Total Balance 840 1100 Intake, IV 600 600 Intake, Oral 240 500 Number 1 Bowel Movements Physical Exam General Appearance: No Acute Distress Skin: No Significant Lesion HEENT: Atraumatic, PERRLA, EOMI, Mucous Membr. moist/pink Neck: Supple Cardiovascular: Regular Rate, Normal S1, Normal S2, No Murmurs Lungs: Normal Air Movement Abdomen: Soft, No Tenderness Extremities: No Edema Current Medications: Current Medications Sig/Leah Start time Last Medication Dose Route Stop Time Status Admin Acetaminophen 650 MG Q6P PRN 09/28 1915 AC PO Ampicillin Sodium/ 1,500 MG Q6H 09/30 1500 AC Sulbactam Sodium IV Sodium Chloride 100 ML Carbamazepine 400 MG BID 09/28 2100 AC 09/30 PO 0822 Dextrose/Sodium 1,000 ML .[id number] 09/28 1900 AC 09/30 Chloride IV 0420 Divalproex Sodium 875 MG TID 09/28 2100 AC 09/30 PO 1422 Docusate Sodium 100 MG BID 09/28 2100 AC 09/30 PO 0821 Heparin Sodium 5,000 UNIT Q8 09/28 2200 AC 09/30 (Porcine) SC 1422 Ibuprofen 400 MG Q8P PRN 09/29 1300 AC 09/30 PO 111 Ibuprofen 600 MG Q6P PRN 09/28 1914 AC PO Lidocaine 1 PAT DAILY NEEDED PRN 09/28 1914 AC TOP Ondansetron HCl 4 MG Q6P PRN 09/28 1914 AC IV Polyethylene Glycol 17 GM AT BEDTIME 09/28 2099 AC 09/29 PO 2046 Senna/Docusate Sodium 1 TAB AT BEDTIME 09/28 2099 AC 09/29 PO 2038 Last 24 Hrs of Lab/Zach Results Last 24 Hrs of Labs/Mics: Laboratory Tests 09/30/17 0705: Anion Gap 9, Estimated GFR > 60, BUN/Creatinine Ratio 27.5 H, Lactic Acid 2.3 H, Lactate Dehydrogenase 1411 H, CBC w Diff MAN DIFF ORDERED, RBC 2.76 L, MCV 96.5 H, MCH 32.3 H, MCHC 33.5, RDW 14.2, MPV 7.9, Gran % 83.8 H, Lymphocytes % 7.1 L, Monocytes % 8.8, Eosinophils % 0, Basophils % 0.3, Absolute Granulocytes 5.9, Segmented Neutrophils 59, Band Neutrophils 18 H, Absolute Lymphocytes 0.5 L, Lymphocytes 12 L, Monocytes 11 H, Absolute Monocytes 0.6, Absolute Eosinophils 0, Absolute Basophils 0, Anisocytosis 1+ Microbiology 09/30 1135 BLOOD: Blood Culture - RECD 09/30 0943 BLOOD: Blood Culture - CAN Cancelled: Quantity not sufficient for Aerobic blood culture bottle. 09/30 0702 BLOOD: Blood Culture - RECD Assessment/Plan Assessment: This is a 31-year-old male, with past medical history significant for seizure disorder (on Depakote, carbamazepine) and cerebral palsy, intellectual disability, non-ambulatory, nonverbal, recent fall, testicular mass, who initially admitted for CC of not having a bowel movement. Overnight, he had Tmax 104. PLAN: Fever: DDX includes infection, tumor or drug fever. He does not seem to be on any new meds that might be causing the fever. There is a testicular mass c/o malignancy, but this mass has been present for some time and he has never had fever. There is c/o new onset infection and CT chest abd pelvis reveals some opacities concerning for aspiration. As this is hospital day 2 I will hold off HCAP. * F/U BCX * Start Unasyn 1.5 q8 * Cont monitor; more frequent vitals * F/U Urine cx Nondisplaced femoral fracture: * Appreciate ortho consult * no intervention at this time Testicular mass: * Appreciate urology consult * no intervention at this time * Pending AFP * Will need out pt f/u with Dr. Neil Seizure hx/CP: * Con't Depakote * Con't Carbamazepine fc Problem List: 1. Fever Pain Ratin Pain Location: NONE Pain Goal: Remain pain free Pain Plan: CURRENT REG Tomorrow's Labs & Rationales: CBC BEP Gordon MCCOY,Amir 09/30/17 194: Attending MD Review Statement Attending Statement Attending MD Statement: examined this patient, discuss w/resident/PA/STRAIGHTENING ROLL OPERATOR, agreed w/resident/PA/STRAIGHTENING ROLL OPERATOR, discussed with family, reviewed EMR data (avail), discussed with nursing Attending Assessment/Plan: pt was seen and evaluated. found to have fever. CT chest c/w aspiration pna. Agree with IV, cont to monitor clinically rest of the plan as per resident's note
[2017-09-30 15:42] VITALS: BP 100/60
[2017-09-30 22:47] VITALS: BP 104/60
[2017-10-01 06:28] VITALS: BP 116/54
--- NOTE | 2017-10-01 06:35 | PN- Housestaff ---
Sky Perez 10/01/17 0634: Subjective Follow-up For: Femoral fracture Testicular mass Intellectual disability Seizure disorder Subjective: I visited with the patient his morning, he was awake, laying back in his bed in no acute distress. He is intellectually disabled and not able to communicate verbally. He is bedbound at baseline. From last week when he was admitted in the ED he has a diagnosis of proctitis and her mother asked for GI consult while he is impatient because transportation is difficult for them. He had episodes of fever over the weekend. Review of Systems Constitutional: Reports: see HPI. Objective Last 24 Hrs of Vital Signs/I&O Vital Signs Date Time Temp Pulse Resp B/P B/P Pulse O2 O2 Flow FiO2 Mean Ox Delivery Rate 10/01 1452 98.3 113 20 90/60 99 10/01 1204 98.3 10/01 1105 98.4 10/01 0800 Room Air 10/01 0628 96.0 98 20 116/54 92 Room Air 09/30 2247 97.4 97 20 104/60 99 Intake & Output 10/01 1600 10/01 0800 10/01 0000 Intake Total 1210 600 960 Output Total Balance 1210 600 960 Intake, IV 730 600 600 Intake, Oral 480 360 Number 0 Bowel Movements Patient 84 lb 15.99 oz Weight Physical Exam General Appearance: Alert, No Acute Distress Skin: No Rashes Skin Temp/Moisture Exam: Warm/Dry Sepsis Skin Exam (color): Normal for Ethnicity HEENT: Atraumatic Neck: Supple, No JVD Lymphatic: Axillary nl, Cervical nl Cardiovascular: Regular Rate, Normal S1, Normal S2 Lungs: Normal Air Movement, rales at right lower lobe Abdomen: Normal Bowel Sounds, Soft, No Tenderness Neurological: Intelectually disabled, not able to communicate verbally, bed- bound Extremities: Contracture, deformed, low muscle mass Assessment/Plan Assessment: This is a 31-year-old male, with past medical history significant for seizure disorder (on Depakote, carbamazepine) and cerebral palsy, intellectual disability, non-ambulatory, nonverbal, recent fall, testicular mass, who initially admitted for CC of not having a bowel movement. Imaging showed a fractured femor. Fever: DDX includes infection, tumor or drug fever. He does not seem to be on any new meds that might be causing the fever. There is a testicular mass c/o malignancy, but this mass has been present for some time and he has never had fever. There is c/o new onset infection and CT chest abd pelvis reveals some opacities concerning for aspiration. Swallowing test was done for him which revealed normal results and he can tolerate a regular diet on thin liquids. Plan: F/U BCX, Start Unasyn 1.5 q8, Cont monitor; more frequent vitals, F/U Urine cx Non-displaced femoral fracture: Plan: Appreciate ortho consult, no intervention at this time Testicular mass: Plan: Appreciate urology consult, no intervention at this time, Pending AFP, Will need out pt f/u with Dr. Neil, radical orchiectomy will be done as an outpatient Seizure hx/CP: Plan: Con't Depakote, Con't Carbamazepine Problem List: 1. Fracture of femoral neck, left 2. Testicular mass 3. Pneumonia 4. Convulsions Pain Ratin (Unable to communicate) Pain Location: Probably left femoral Pain Goal: Pain 4 or less Pain Plan: Lidocaine patch Ibuprofen Acetaminophen Tomorrow's Labs & Rationales: Not applicable Miguel Mayorga MD 10/01/17 2146: Attending MD Review Statement Attending Statement Attending MD Statement: examined this patient, discuss w/resident/PA/AUDIOVISUAL LEAD TECHNICIAN, agreed w/resident/PA/AUDIOVISUAL LEAD TECHNICIAN, discussed with family, reviewed EMR data (avail), discussed with nursing, discussed with case mgmt, reviewed images, amended to note Attending Assessment/Plan: The patient was seen and discussed with house staff. Agree with the above plan of care. Passed swallow evaluation. Discussed proctitis with Dr. Graham who suggested enema. Will continue antibiotics for pneumonia and follow temps.
[2017-10-01 10:54] LABS: ABSOLUTE BASOPHIL COUNT 0 /CUMM (0.0-0.2); ABSOLUTE EOSINOPHIL COUNT 0 /CUMM (0.0-0.7); ABSOLUTE GRANULOCYTE CT 7.8 /CUMM (1.4-6.5); ABSOLUTE MONOCYTE COUNT 0.4 /CUMM (0.10-0.60); BASOPHIL % 0.2 % (0.0-2.0); EOSINOPHIL % 0.3 % (0-5); HEMATOCRIT 23.5 % (42-52); MEAN CORPUSCULAR HGB 32.9 PG (27.0-31.0); MEAN CORPUSCULAR HGB CONC 33.4 G/DL (33.0-37.0); MEAN CORPUSCULAR VOLUME 98.3 FL (80.0-94.0); MEAN PLATELET VOLUME 8.5 FL (7.4-10.4); PLATELET COUNT 259 /CUMM (130-400); RBC DISTRIBUTION WIDTH 14.6 % (11.5-14.5); RED BLOOD CELL CT 2.39 /CUMM (4.70-6.10); WHITE BLOOD CELL COUNT 9.3 /CUMM (4.8-10.8)
--- NOTE | 2017-10-01 14:11 | PN- Urology ---
Subjective Subjective: Patient resting comfortably. Above events noted. Likely aspiration pneumonia Pt was found to have enlarge R testicle in 02/2017. Tumor markers were negative at that time and scrotal ultrasound was read as findings suspicious for orchitis. He was admitted with a hip fx and CT showed an enlarged R testicle. Repeat scrotal ultrasound is now being read as suspicious for testicular tumor. Also the R testicle measures a larger size now than in 02/2017. In 02/2017 beta HCG and alpha feto protein were negative. On this admission beta HCG is donta and alpha feto protein is pending. His LDH is elevated Objective Vital Signs and I&Os Vital Signs Date Time Temp Pulse Resp B/P B/P Pulse O2 O2 Flow FiO2 Mean Ox Delivery Rate 10/01 1105 98.4 10/01 0800 Room Air 10/01 0628 96.0 98 20 116/54 92 Room Air 09/30 2247 97.4 97 20 104/60 99 09/30 1542 99.2 108 18 100/60 97 Intake & Output 10/01 1600 10/01 0800 10/01 0000 09/30 1600 09/30 0800 09/30 0000 Intake Total 600 960 116 471 1140 Output Total Balance 600 960 995 681 2361 Intake, IV 600 600 600 600 600 Intake, Oral 360 360 240 500 Number 0 1 Bowel Movements Patient 84 lb 15.99 oz Weight Abd: soft Genitalia: R testicle definitely enlarged and firm. No significant tenderness. Assessment/Plan Assessment/Plan Imp: 1. hypermobile L testicle 2. Enlarged R testicle, larger than in 02/2017 Plan: 1. I have discussed with patient's mother that R radical orchiectomy may be necessary. In view of recent aspiration pneumonia will not do at this time. He can f/u in office shortly after discharge and if mother agrees will likley schedule R radical orchiectomy at some point in the not too distant future
[2017-10-01 14:52] VITALS: BP 90/60
[2017-10-01 20:45] VITALS: BP 100/60
[2017-10-02 06:18] VITALS: BP 110/60
--- NOTE | 2017-10-02 06:38 | PN- Housestaff ---
Sky Perez 10/02/17 0638: Subjective Follow-up For: Femoral fracture Testicular mass Intellectual disability Seizure disorder Malnutrition Subjective: I visited the patient this morning, he was awake laying back in his bed in no acute distress. At baseline he is bedbound. And nonverbal. No major complaints overnight, no fever, no swelling, no chills. Her mother was concerned if GI doctor is going to visit Mikey or not. Review of Systems Constitutional: Reports: see HPI. Objective Last 24 Hrs of Vital Signs/I&O Vital Signs Date Time Temp Pulse Resp B/P B/P Pulse O2 O2 Flow FiO2 Mean Ox Delivery Rate 10/02 1435 97.4 108 18 114/64 98 Room Air 10/02 0618 98.2 85 20 110/60 96 Room Air 10/01 2045 98.3 87 20 100/60 98 Intake & Output 10/02 1600 10/02 0800 10/02 0000 Intake Total 2650 940 400 Output Total 400 Balance 2250 940 400 Intake, IV 1050 700 Intake, Oral 1600 240 400 Number 0 1 Bowel Movements Output, Urine 400 Physical Exam General Appearance: Alert, No Acute Distress Skin: No Rashes Skin Temp/Moisture Exam: Warm/Dry Sepsis Skin Exam (color): Normal for Ethnicity HEENT: Atraumatic Neck: Supple, No JVD Lymphatic: Axillary nl, Cervical nl Cardiovascular: Regular Rate, Normal S1, Normal S2 Lungs: Normal Air Movement Abdomen: Normal Bowel Sounds, Soft, No Tenderness Reproductive (MALE) Large right sided testicular mass Assessment/Plan Assessment: This is a 31-year-old male, with past medical history significant for seizure disorder (on Depakote, carbamazepine) and cerebral palsy, intellectual disability, non-ambulatory, nonverbal, recent fall, testicular mass, who initially admitted for CC of not having a bowel movement. Imaging showed a fractured femor. He is suspicious for aspiration pneumonia which was probably POA, as evidenced by chest imaging. Barium swallow test result was normal, there is still a risk of aspiration for him, due to the cerebral palsy, seizure, and antiepileptic medication that he takes. Fever: DDX includes infection, tumor or drug fever. He does not seem to be on any new meds that might be causing the fever. There is a testicular mass c/o malignancy, but this mass has been present for some time and he has never had fever. There is c/o new onset infection and CT chest abd pelvis reveals some opacities concerning for aspiration. Swallowing test was done for him which revealed normal results and he can tolerate a regular diet on thin liquids. Plan: F/U BCX, Start Unasyn 1.5 q8, Cont monitor; more frequent vitals, F/U Urine cx Unasyn was changed to p.o. Augmentin on discharge. Non-displaced femoral fracture: Plan: Appreciate ortho consult, no intervention at this time Testicular mass: Plan: Appreciate urology consult, no intervention at this time, Pending AFP, Will need out pt f/u with Dr. Neil, radical orchiectomy will be done as an outpatient Seizure hx/CP: Plan: Con't Depakote, Con't Carbamazepine Malnutrition: The patient has malnutrition with a BMI of 16.1, albumin of 3.3 Plan: The patient is receiving IV fluids, barium swallow has shown that he does not aspirate. Problem List: 1. Fracture of femoral neck, left 2. Testicular mass 3. Pneumonia 4. Aspiration pneumonia 5. Malnutrition 6. Convulsions Pain Ratin Pain Location: Probably left femoral fracture site Pain Goal: Pain 4 or less Pain Plan: Lidocaine patch Acetaminophen Tomorrow's Labs & Rationales: Nonapplicable Miguel Mayorga MD 10/02/17 1444: Attending MD Review Statement Attending Statement Attending MD Statement: examined this patient, discuss w/resident/PA/DUDE WRANGLER, agreed w/resident/PA/DUDE WRANGLER, discussed with family, reviewed EMR data (avail), discussed with nursing, discussed with case mgmt, amended to note Attending Assessment/Plan: The patient was seen and discussed with house staff, nursing, case management, family and GI (Dr. Graham). Appreciate GI input. The patient appears significantly improved. Passed swallow evaluation and tolerating diet well. OK to discharge today on Augmentin. Bowel regimen.
--- NOTE | 2017-10-02 09:56 | Cons- Gastroenterology ---
General Information and HPI Consulting Request Date of Consult: 10/02/17 Requested By: Miguel Mayorga MD Reason for Consult: I was called to assess scant inflammation at the rectosigmoid junction incidentally noted on CT, and a nonverbal patient with cerebral palsy, admitted for left hip fracture, aspiration pneumonia, and probable testicular cancer. Source of Information: family (pt's mother, Rainer), old records Exam Limitations: unable to give history, not alert/orientated, clinical condition, physical impairment History of Present Illness: Unfortunate 31 y/o male, nonverbal, cerebral palsy, cognitively challenged, hx seizures, non-weight bearing, admitted to [facility] 09/28/17 with left hip fracture with impacted left femoral neck (possible injury occurred 3 weeks GROUND LAYER, post falling out of bed at home), and aspiration pneumonia, the latter also possibly GROUND LAYER. Additionally, he may have underlying right testicular cancer, with an enlarging right testicular mass (previous tumor markers- negative; 09/29: *nl AFP 1.4, HCGQ < 2.4), which is in the midst of a urologic workup. He had numerous imaging studies (*see below) to workup his aspiration & left hip pain, which incidentally showed some inflammation at the rectosigmoid junction, in the setting of fecal impaction. There was no overt GI bleeding. The patient had a digital rectal exam by the quality intern and was partially disimpacted. He also received enemas. The stools were OB negative. There was no known family history of IBD or colon Ca, but the history was very limited. According to my discussion with Dr. Mayorga, the patient was cleared for a regular diet with thin liquids, by a swallowing evaluation. My office had previously been called for this minor issue by the ER about a week ago, and an appointment was set up with Dr. Vamshi Vivas for this 10/05/17. The patient was subsequently admitted to [facility] 09/28/17, for his other multiple issues. The patient's mother, Mckenna, was demanding an inpatient GI consultation, as he was about to be discharged today. She "has to go to work" and it would be "difficult for her to bring him to the office for his appointment ". To accomodate her, I ran up to see the patient in between my procedures in the GI suite. I had verbally given Dr. Mayorga a recommendation for a bowel prep last p.m. The rectosigmoid abnormality incidentallly found on the CT is obviously not the patient's major issue at the moment. I spoke with the patient's mother, Mckenna, at length in the patient's room this morning, as he was about to be discharged from the hospital. She told me that "nothing was being done for him here". I told her that he was getting treatment for his hip fracture and antibiotics for his pneumonia, etc. She stated that "she could give him the antibiotics at home". The patient had been seen by numerous disciplines while in [facility], including the hospitalist service, orthopedics, urology, and now GI. Orthopedics advised conservative tx for now, based on the above numerous mitigating factors, as did urology, who are contemplating an outpt right radical orchiectomy. He previously had a fever earlier this admission, uncertain if from infx (i.e.-asp PNA), tumor, or drug fever. He was txd with IV Unasyn 1.5g Q8h & switched to Augmentin. Cultures were negative. Regarding his constipation, which appeared to be chronic & perhaps related to his immobility & inactivity, he has had a relatively recent normal Ca2+ & normal TSHR (the latter also noted, regarding his macrocytic anemia, with previously nl B12/folate levels). Some of his macrocytosis could be medication-related. The patient was unable to give any history. His records were reviewed. I do not believe he has ever had a baseline flex sig/colonoscopy. Allergies/Medications Allergies: Coded Allergies: NO KNOWN ALLERGIES (12/22/15) Home Med List: Amoxicillin/Potassium Clav (Augmentin 250-62.5 MG/5 Ml) 250 MG-62.5 MG/5 ML SUSP.RECON 10 ML PO BID ASPIRATION PNEUMONIA Carbamazepine 200 MG CPMP.12HR 2 CAP PO BID seizure (Reported) Divalproex Sodium (Depakote Sprinkle) 125 MG CAP.SPRINK 7 CAP PO TID seizure (Reported) Ibuprofen (Children's Motrin) 100 MG/5 ML ORAL.SUSP 20 ML PO Q6P fever or pain Please take as directed Lactose-Reduced Food (Ensure Liquid) 237 ML LIQUID 1 CAN PO TID SUPPLEMENTAL NUTRITION (Reported) Na Phos,M-B/Na Phos,Di-Ba (Enema) 19 GRAM-7 GRAM/118 ML ENEMA 1 E RC SI CONSTIPATION Please give only as needed for constipation. Polyethylene Glycol 3350 (Miralax) 17 GRAM/DOSE POWDER 17 GM PO DAILY NEEDED Constipation Please give one per day Sennosides/Docusate Sodium (Senna Plus Tablet) 8.6 MG-50 MG TABLET 1 TAB PO AT BEDTIME Constipation Please give one tablet at bedtime. Current Medications: Current Medications Sig/Leah Start time Last Medication Dose Route Stop Time Status Admin Acetaminophen 650 MG Q6P PRN 09/28 1914 DCD PO Ampicillin Sodium/ 1,500 MG Q6H 09/30 1500 DCD 10/02 Sulbactam Sodium IV 0846 Sodium Chloride 100 ML Carbamazepine 400 MG BID 09/28 2099 DCD 10/02 PO 0847 Dextrose/Sodium 1,000 ML .[id number] 09/28 1900 DCD 10/01 Chloride IV 2315 Divalproex Sodium 875 MG TID 09/28 2100 DCD 10/02 PO 1326 Docusate Sodium 100 MG BID 09/28 2100 DCD 10/02 PO 0847 Heparin Sodium 5,000 UNIT Q8 09/28 2200 DCD 10/02 (Porcine) SC 1326 Hydrocortisone/ 1 FARTUN ONCE ONE 10/01 174 DC 10/01 Pramoxine NV 10/01 1746 1900 Ibuprofen 400 MG Q6 10/01 1200 DCD 10/02 PO 1105 Lidocaine 1 PAT DAILY NEEDED PRN 09/28 1914 DCD TOP Ondansetron HCl 4 MG Q6P PRN 09/28 1914 DCD IV Polyethylene Glycol 17 GM AT BEDTIME 09/28 2100 DCD 10/01 PO 2044 Pramoxine HCl 1 BOT ONCE ONE 10/01 1700 DC EXT 10/01 1701 Senna/Docusate Sodium 1 TAB AT BEDTIME 09/28 2099 DCD 10/01 PO 204 Past History Travel History Traveled to [place] past 21 day No Medical History Blood Transfusion Hx: No Neurological: seizure, CEREBRAL PALSY MR Mental retardation EENT: NONE Cardiovascular: NONE Respiratory: ASP PNA Gastrointestinal: NONE Hepatic: NONE Renal: NONE Musculoskeletal: cerebral palsy, scoliosis Psychiatric: NONE Endocrine: osteopenia Blood Disorders: macrocytic anemia Cancer(s): NONE (being w/u for R testes mass) WORKFORCE CONSULTANT/Reproductive: NONE (being w/u for R testes mass) Surgical History Surgical History: non-contributory Family History Relations & Conditions If Any: Relation not specified for: Family history unobtainable Psychosocial History Where Do You Live? Home Who Do You Live With? parent Services at Home: None Primary Language: nonverbal Smoking Status: Never Smoked ETOH Use: denies use Illicit Drug Use: denies illicit drug use Living Will? no Power of Hot Patcher/HCP? unknown Other Social History: Otherwise unobtainable from pt Functional Ability ADLs Needs Assist: dressing, eating, toileting, bathing. Ambulation: non-ambulatory IADLs Needs Assist: shopping, housework, finances, food prep, telephone, transportation, medication admin. Employment History Employment: Disability ECHO Results (as available) Date of last Echo 06/18/17 EF% 60 Review of Systems Review of Systems: Full 14 point ROS otherwise unobtainable, based on the patient's clinical status with cerebral palsy, cognitive disabilities, and nonverbal state. Review of Systems All Other Systems: Reviewed and Negative (unobtainable) Exam & Diagnostic Data Vital Signs and I&O Vital Signs Date Time Temp Pulse Resp B/P B/P Pulse O2 O2 Flow FiO2 Mean Ox Delivery Rate 10/02 1435 97.4 108 18 114/64 98 Room Air 10/02 0618 98.2 85 20 110/60 96 Room Air 10/01 2045 98.3 87 20 100/60 98 Intake & Output 10/02 1600 10/02 0400 10/01 1600 10/01 0400 09/30 1600 09/30 0400 Intake Total 3590 400 6440 154 7965 1100 Output Total 400 Balance 3190 400 6634 752 1720 1100 Intake, IV 1750 4343 996 6358 600 Intake, Oral 1840 400 480 360 600 500 Number 0 1 0 1 Bowel Movements Output, Urine 400 Patient 84 lb 15.99 oz Weight Physical Exam: Well-developed, slightly malnourished, thin, non-ambulatory, non-verbal, intellectually disabled male, in no apparent distress. Sclera anicteric. Conjunctiva slightly pale. Oropharynx clear on limited views. No stridor. There is no adenopathy, thyromegaly, or JVD. No peripheral stigmata of inflammatory bowel disease or chronic liver disease on exam. No spiders on the anterior chest wall. No gynecomastia. No CVA tenderness. Mild T-L scoliosis. Lungs: few scattered rhonchi, left > right, without any wheezing or rales. Slight decreased BS at the bases B/L. Heart exam: regular rate rhythm, S1 and S2, with soft I/ systolic murmur. Abdominal exam: normal bowel sounds, soft scaphoid belly, nontender, without guarding or rebound. No mass. No organomegaly. No fluid shift. No pulsatile mass. No epigastric bruit. Repeat digital rectal exam 10/02/17: deferred by myself, as it was done API earlier this admission, with brown, OB-neg stool, at which point, the patient was partially disimpacted. Repeat testicular exam deferred 10/02/17, as previously done by urology & API, showing large right testicular mass, reportedly no mass felt in left testes. Extremities: without C, C, or E. The patient is contracted with cerebral palsy. He has a flexion contracture of the left hip and flexion contracture of the left knee. Further musculoskeletal exam is as per orthopedics. No palpable cords. Distal pulses 2+ bilaterally. DTRs 2+ bilaterally. Alert, nonverbal, & disoriented x 3. Results Pertinent Lab Results: Laboratory Tests 10/01 10/01 1105 0850 Chemistry Sodium (137 - 145 mmol/L) 140 Potassium (3.5 - 5.1 mmol/L) 4.5 Chloride (98 - 107 mmol/L) 105 Carbon Dioxide (22 - 30 mmol/L) 30 Anion Gap (5 - 16) 4 L BUN (9 - 20 mg/dL) 11 Creatinine (0.7 - 1.2 mg/dL) 0.4 L Estimated GFR (>60 ml/min) > 60 BUN/Creatinine Ratio (7 - 25 %) 27.5 H Hematology CBC w Diff NO MAN DIFF REQ WBC (4.8 - 10.8 /CUMM) 9.3 RBC (4.70 - 6.10 /CUMM) 2.39 L Hgb (14.0 - 18.0 G/DL) 7.8 L Hct (42 - 52 %) 23.5 L MCV (80.0 - 94.0 FL) 98.3 H MCH (27.0 - 31.0 PG) 32.9 H MCHC (33.0 - 37.0 G/DL) 33.4 RDW (11.5 - 14.5 %) 14.6 H Plt Count (130 - 400 /CUMM) 259 MPV (7.4 - 10.4 FL) 8.5 Gran % (42.2 - 75.2 %) 84.0 H Lymphocytes % (20.5 - 51.1 %) 11.2 L Monocytes % (1.7 - 9.3 %) 4.3 Eosinophils % (0 - 5 %) 0.3 Basophils % (0.0 - 2.0 %) 0.2 Absolute Granulocytes (1.4 - 6.5 /CUMM) 7.8 H Absolute Lymphocytes (1.2 - 3.4 /CUMM) 1.0 L Absolute Monocytes (0.10 - 0.60 /CUMM) 0.4 Absolute Eosinophils (0.0 - 0.7 /CUMM) 0 Absolute Basophils (0.0 - 0.2 /CUMM) 0 Urines Urine Color (YEL,AMB,STR) YEL Urine Clarity (CLEAR) CLEAR Urine pH (5.0 - 8.0) 7.0 Ur Specific Lockhart (1.001 - 1.035) 1.020 Urine Protein (NEG,<30 MG/DL) NEG Urine Ketones (NEG) NEG Urine Nitrite (NEG) NEG Urine Bilirubin (NEG) NEG Urine Urobilinogen (0.1 - 1.0 EU/dl) 1.0 Ur Leukocyte Esterase (NEG) NEG Ur Microscopic EXAM NOT REQUIRED Urine Hemoglobin (NEG) NEG Urine Glucose (N MG/DL) NEG 09/30 0705 Chemistry Sodium (137 - 145 mmol/L) 141 Potassium (3.5 - 5.1 mmol/L) 3.5 Chloride (98 - 107 mmol/L) 102 Carbon Dioxide (22 - 30 mmol/L) 29 Anion Gap (5 - 16) 9 BUN (9 - 20 mg/dL) 11 Creatinine (0.7 - 1.2 mg/dL) 0.4 L Estimated GFR (>60 ml/min) > 60 BUN/Creatinine Ratio (7 - 25 %) 27.5 H Lactic Acid (0.7 - 2.1 mmol/L) 2.3 H Lactate Dehydrogenase (313 - 618 U/L) 1411 H Hematology CBC w Diff MAN DIFF ORDERED WBC (4.8 - 10.8 /CUMM) 7.1 RBC (4.70 - 6.10 /CUMM) 2.76 L Hgb (14.0 - 18.0 G/DL) 8.9 L Hct (42 - 52 %) 26.6 L MCV (80.0 - 94.0 FL) 96.5 H MCH (27.0 - 31.0 PG) 32.3 H MCHC (33.0 - 37.0 G/DL) 33.5 RDW (11.5 - 14.5 %) 14.2 Plt Count (130 - 400 /CUMM) 319 MPV (7.4 - 10.4 FL) 7.9 Gran % (42.2 - 75.2 %) 83.8 H Lymphocytes % (20.5 - 51.1 %) 7.1 L Monocytes % (1.7 - 9.3 %) 8.8 Eosinophils % (0 - 5 %) 0 Basophils % (0.0 - 2.0 %) 0.3 Absolute Granulocytes (1.4 - 6.5 /CUMM) 5.9 Segmented Neutrophils (42.2 - 75.2 %) 59 Band Neutrophils (0.0 - 5.0 %) 18 H Absolute Lymphocytes (1.2 - 3.4 /CUMM) 0.5 L Lymphocytes (20.5 - 51.1 %) 12 L Monocytes (1.7 - 9.3 %) 11 H Absolute Monocytes (0.10 - 0.60 /CUMM) 0.6 Absolute Eosinophils (0.0 - 0.7 /CUMM) 0 Absolute Basophils (0.0 - 0.2 /CUMM) 0 Anisocytosis 1+ Imaging/Other Studies: 09/27/17: CT ABDOMEN AND PELVIS WITH IV CONTRAST- Rectal inflammatory changes persist. The abnormal appearance of the rectosigmoid with wall thickening and pericolonic inflammatory changes are very similar to that noted previously. There is some increased air around and between loops of bowel in the pelvis which could conceivably represent extraluminal air from an area of perforation but most likely represents unopacified bowel loops filled with air. A repeat CT scan with rectal Gastrografin would be definitive if clinical condition warrants. This was discussed Dr. Reed Osuna. New atelectasis/patchy infiltrate and small left effusion are noted compared to the prior study. The right lung is clear. 09/28/17: CT PELVIS WITHOUT IV CONTRAST, WITH DILUTE GASTROVIEW CONTRAST VIA RECTAL TUBE- 1. Capacious rectosigmoid colon with *no evidence of bowel perforation seen. *The rectal contrast remains intraluminal with no contrast extravasation seen. 2. A few isolated sigmoid colonic diverticula are seen. No evidence of acute diverticulitis. 3. Acute minimally displaced left femoral neck fracture with partial impaction and small hemorrhagic joint effusion. 4. *Large 6.8 x 7.5 cm mass in the right hemiscrotum, incompletely imaged. This is suspicious for a right testicular neoplasm. Further assessment with testicular ultrasound is recommended. Findings discussed with Dr. Slater 09/28/2017, 1:15 PM. DICTATED BY: Jerry MCCOY,Zakiya Meza. 09/28/17: US-TESTICULAR- 1. Markedly enlarged heterogeneous and edematous right testicle is seen with complex nodular parenchymal pattern seen. Superimposed 3 discrete measurable hypoechoic masses are noted. Normal arterial and venous flow in the right testicle is seen. Findings are most suspicious for a nonseminomatous germ cell tumor or other neoplastic process such as primary or secondary testicular lymphoma or metastatic disease. Granulomatous diseases may have a similar appearance. Close clinical correlation is requested. 2. Bilateral testicular microlithiasis, right greater than left. 3. Left testicle otherwise unremarkable. 4. Bilateral epididymides are normal. 09/28/17: XRY-HIP 2-3 VIEWS, LEFT- Acute, mildly impacted fracture of the left femoral neck, new compared to 2017. Bones are diffusely osteopenic. 09/30/17: CT CHEST, ABDOMEN AND PELVIS WITHOUT IV CONTRAST- 1. Interval development of ill-defined airway associated nodular densities and diffuse groundglass opacities in the left lung and to a lesser extent in the posterior right upper lobe. Findings are suspicious for aspiration pneumonia. Associated small left-sided pleural effusion and dependent atelectasis are noted. 2. Large stool burden is seen throughout the colon and there is evidence of rectal fecal impaction and mild stercoral colitis involving the rectosigmoid colon. 3. Large incompletely imaged heterogeneous right testicular mass, suspicious for testicular neoplasm. 4. Minimally displaced subacute left femoral neck fracture. Assessment/Plan Assessment/Recommendations: Unfortunate 31 y/o male, nonverbal, cerebral palsy, cognitively challenged, hx seizures, non-weight bearing, admitted to [facility] 09/28/17 with left hip fracture with impacted left femoral neck (possible injury occurred 3 weeks GROUND LAYER, post falling out of bed at home), and aspiration pneumonia, the latter also possibly GROUND LAYER. Additionally, he may have underlying right testicular cancer, with an enlarging right testicular mass (previous tumor markers- negative; 09/29: *nl AFP 1.4, HCGQ < 2.4), which is in the midst of a urologic workup. He had numerous imaging studies (*see below) to workup his aspiration & left hip pain, which incidentally showed some inflammation at the rectosigmoid junction, in the setting of fecal impaction. There was no overt GI bleeding. The patient had a digital rectal exam by the quality intern and was partially disimpacted. He also received enemas. The stools were OB negative. There was no known family history of IBD or colon Ca, but the history was very limited. According to my discussion with Dr. Mayorga, the patient was cleared for a regular diet with thin liquids, by a swallowing evaluation. My office had previously been called for this minor issue by the ER about a week ago, and an appointment was set up with Dr. Vamshi Vivas for this 10/05/17. The patient was subsequently admitted to [facility] 09/28/17, for his other multiple issues. The patient's mother, Mckenna, was demanding an inpatient GI consultation, as he was about to be discharged today. She "has to go to work" and it would be "difficult for her to bring him to the office for his appointment ". To accomodate her, I ran up to see the patient in between my procedures in the GI suite. I had verbally given Dr. Mayorga a recommendation for a bowel prep last p.m. The rectosigmoid abnormality incidentallly found on the CT is obviously not the patient's major issue at the moment. I spoke with the patient's mother, Mckenna, at length in the patient's room this morning, as he was about to be discharged from the hospital. She told me that "nothing was being done for him here". I told her that he was getting treatment for his hip fracture and antibiotics for his pneumonia, etc. She stated that "she could give him the antibiotics at home". The patient had been seen by numerous disciplines while in [facility], including the hospitalist service, orthopedics, urology, and now GI. Orthopedics advised conservative tx for now, based on the above numerous mitigating factors, as did urology, who are contemplating an outpt right radical orchiectomy. He previously had a fever earlier this admission, uncertain if from infx (i.e.-asp PNA), tumor, or drug fever. He was txd with IV Unasyn 1.5g Q8h & switched to Augmentin. Cultures were negative. Regarding his constipation, which appeared to be chronic & perhaps related to his immobility & inactivity, he has had a relatively recent normal Ca2+ & normal TSHR (the latter also noted, regarding his macrocytic anemia, with previously nl B12/folate levels). Some of his macrocytosis could be medication-related. The patient was unable to give any history. His records were reviewed. I do not believe he has ever had a baseline flex sig/colonoscopy. *The patient has chronic constipation with history of fecal impaction and mild stercoral colitis involving the rectosigmoid colon. Numerous imaging studies, including a repeat CT with dilute contrast through the rectum did not show any perforation, extravasation, or abscess. The above is most likely exacerbated by his immobility and inactivity, keeping in mind his non-weightbearing state, cognitive issues, and cerebral palsy. His most pressing issues at the moment are aspiration pneumonia, a recent left femoral neck fracture, and an enlarging right testicular mass, suspicious for neoplasm. I sincerely doubt the above rectosigmoid findings are from IBD or neoplasm. The patient was partially disimpacted by the quality intern. He had brown OB negative stool. At the moment, I would advise conservative therapy with a bowel regimen (see below). *SUGGEST- Advise MiraLAX 17 g daily plus Senna. May add stool softeners. Advise daily enema for now, tap water enema alternating with mineral oil enema. The frequency of enemas can be spaced out, based on the patient's clinical course. Consideration for Lactulose, if no relief from the above regimen. I would avoid NSAIDs, which theoretically could exacerbate the proctitis. Sincerely doubt any underlying IBD or colon lesion. If stronger narcotic analgesics are needed off NSAIDS, with history of baseline constipation, consideration could be made for Linzess vs. Movantik vs. Relistor. The patient's mother, Mckenna, has our office number. She was told that after his other numerous issues are addressed, the patient could make an official visit at the office. *Again, he apparently already had an outpt GI consult scheduled with Dr. Vamshi Vivas for this Sunday10/05/17, but the patient's mother, Mckenna, did not to miss work for this. At the moment, I would not proceed with a flexible sigmoidoscopy/colonoscopy, based on his other numerous comorbidities and more acute issues, such as the left hip fracture & recent aspiration PNA, *but this could be reconsidered down the road. Regular diet with thin liquids, per swallow evaluation, with aspiration precautions. Keep HOB elevated with feeds. Nutritional supplements (i.e.- Ensure ). Increase dietary fiber. The above was discussed with the patient's mother, Mckenna, in detail, with Dr. Mayorga, & with the medical housestaff. Further inpatient GI follow-up as needed, as the patient is being discharged today. Problem List: 1. Proctitis 2. Constipation 3. Aspiration pneumonia 4. Macrocytic anemia 5. Malnutrition 6. Diverticulosis of colon 7. Fracture of femoral neck, left 8. Mass of right testicle 9. Seizure disorder Copies To: Jolynn MCCOY,Reed Atkins; Blaine MCCOY,Erica; Tierra MCCOY,Miguel; Ganesh MCCOY, [place] Consult Acknowledgment - Thank you for your consult request.
[2017-10-02] MEDS ORDERED: MIRALAX119 GM PO ×2 (11:46→14:01)
[2017-10-02] MEDS ORDERED: SENNA PLUS TAB1 EACH PO ×2 (11:46→14:01)
--- NOTE | 2017-10-02 11:52 | Patient Discharge Instructions ---
Discharge Instructions General Discharge Information You were seen/treated for: Femoral fracture Aspiration pneumonia Proctitis Testicular mass Intellectual disability Seizure disorder Watch for these problems: Worsening fever, cough Pain Special Instructions: Please follow up with PCP Please follow up with urologist Please follow up with GI Please give Augmentin till the course of Antibiotic is completed. Diet Continue normal diet: Yes Recommended Diet: Regular Activity Full Activity/No Limits: No Activity Self Limited: Yes Acute Coronary Syndrome Inclusion Criteria At DC or during hospital stay patient has or had the following: ACS DIAGNOSIS No Discharge Core Measures Meds if any: Prescribed or Continued at Discharge Meds if any: NOT Prescribed or Continued at Discharge Congestive Heart Failure Inclusion Criteria At DC or during hospital stay patient has or had the following: CHF DIAGNOSIS No Discharge Core Measures Meds if any: Prescribed or Continued at Discharge Meds if any: NOT Prescribed or Continued at Discharge Cerebrovascular accident Inclusion Criteria At DC or during hospital stay patient has or had the following: CVA/TIA Diagnosis No Discharge Core Measures Meds if any: Prescribed or Continued at Discharge Meds if any: NOT Prescribed or Continued at Discharge Venous thromboembolism Inclusion Criteria VTE Diagnosis No VTE Type NONE VTE Confirmed by (Test) NONE Discharge Core Measures - Per Current guidelines, there needs to be overlap - treatment for the first 5 days of Warfarin therapy. - If discharged on Warfarin prior to 5 days of - overlap therapy, the patient will need to be - assessed for post discharge needs including - *Post discharge parental anticoagulation - *Warfarin and/or parental anticoagulation education - *Follow up date to check INR post discharge At least 5 days overlap therapy as Inpatient No Meds if any: Prescribed or Continued at Discharge Note: Overlap Therapy is Warfarin and Anticoagulant Meds if any: NOT Prescribed or Continued at Discharge
[2017-10-02] MEDS ORDERED: ENEMA133 M1 RC (14:01)
[2017-10-02] MEDS ORDERED: AUGMENTIN250 MG/51 PO (14:01)
[2017-10-02] MEDS ORDERED: CHILDREN'S100 MG/58 PO (14:01)
[2017-10-02 14:35] VITALS: BP 114/64
--- NOTE | 2017-10-02 14:44 | Discharge Summary ---
See Addendum Visit Information Visit Dates Admission Date: 09/28/17 Discharge Date: 10/02/2017 Hospital Course Course Attending Physician: Miguel Mayorga MD Primary Care Physician: Erica Valladares MD Consulting Request: 1 Consulting Specialty: Orthopedics Consulting Physician: Glenroy Andersen MD Reason for Consult: Hip fracture Consulting Request: 2 Consulting Specialty: Urology Consulting Physician: Reed Neil MD Reason for Consult: Right testicular mass Consulting Request: 3 Consulting Specialty: Gastroenterology Consulting Physician: Jose Alberto Graham MD Reason for Consult: Previous diagnosis of proctitis Hospital Course: This is a 31-year-old male, with past medical history significant for seizure disorder (on Depakote, carbamazepine) and cerebral palsy, intellectual disability, non-ambulatory, nonverbal, recent fall, testicular mass, who initially admitted for CC of not having a bowel movement. Imaging showed a fractured femor. He is suspicious for aspiration pneumonia which was probably POA, as evidenced by chest imaging. Barium swallow test result was normal, there is still a risk of aspiration for him, due to the cerebral palsy, seizure, and antiepileptic medication that he takes. Fever: DDX includes infection, tumor or drug fever. He does not seem to be on any new meds that might be causing the fever. There is a testicular mass c/o malignancy, but this mass has been present for some time and he has never had fever. There is c/o new onset infection and CT chest abd pelvis reveals some opacities concerning for aspiration. Swallowing test was done for him which revealed normal results and he can tolerate a regular diet on thin liquids. Plan: F/U BCX, Start Unasyn 1.5 q8, Cont monitor; more frequent vitals, F/U Urine cx Unasyn was changed to p.o. Augmentin on discharge. Non-displaced femoral fracture: Plan: Appreciate ortho consult, no intervention at this time Testicular mass: Plan: Appreciate urology consult, no intervention at this time, Pending AFP, Will need out pt f/u with Dr. Neil, radical orchiectomy will be done as an outpatient Seizure hx/CP: Plan: Con't Depakote, Con't Carbamazepine Malnutrition: The patient has malnutrition with a BMI of 16.1, albumin of 3.3 Plan: The patient is receiving IV fluids, barium swallow has shown that he does not aspirate. Allergies: Coded Allergies: NO KNOWN ALLERGIES (12/22/15) Significant Procedures: EXAM TYPE: RAD - XRY-HIP 2-3 VIEWS, LEFT EXAMINATION: XR HIP, LEFT CLINICAL INFORMATION: Fracture. COMPARISON: CT images of pelvis from 08/05/2017, 09/21/2017 and 09/28/2017. TECHNIQUE: Two views of the left hip. FINDINGS: A mildly impacted, transverse fracture of the femoral neck is not significantly displaced. This fracture is new compared to 08/05/2017. The femoral head is well-positioned within the acetabulum. Bones are diffusely osteopenic. IMPRESSION: Acute, mildly impacted fracture of the left femoral neck. EXAM TYPE: CAT - CT ABD & PELVIS W/O IV CONTRAS; CT CHEST WO IV CONTRAST EXAMINATION: CT CHEST, ABDOMEN AND PELVIS WITHOUT CONTRAST CLINICAL INFORMATION: Fever 104.3 rectally. Patient nonverbal at baseline. Patient with mental retardation. Previously treated colitis and aspiration pneumonia. COMPARISON: CT scan of the pelvis dated 09/28/2017. CT scan of the abdomen and pelvis dated 09/27/2017 and 12/22/2015.. CT scan of the chest, abdomen and pelvis dated 09/21/2017 and 08/05/2017. TECHNIQUE: Multidetector volumetric imaging was performed from the base of the neck through the pubic symphysis. Sagittal and coronal reformatted images were obtained on the technologist workstation. DLP: 372.71 mGy-cm. FINDINGS: Evaluation is limited given difficulties with patient positioning and cooperation for the exam. CT SCAN OF THE CHEST: LUNGS: Interval development of a small left-sided posterior layering pleural effusion is seen with subjacent patchy and tree-in-bud type ill-defined nodular parenchymal opacities throughout the left lower lobe. Less extensive groundglass and ill-defined nodular opacities are seen throughout the left upper lobe and posteriorly in the right upper lobe. The right lung is otherwise clear. No pneumothorax is seen. The central airways are patent. LYMPHOVASCULAR STRUCTURES: Aortic and heart size normal. No pericardial effusion. No mediastinal, hilar or axillary adenopathy or free fluid collection. Small amount of soft tissue density is seen in the anterosuperior mediastinum with a triangular configuration, unchanged, consistent with mild residual thymic tissue. THYROID GLAND: Not included in the jltml-ob-hlej of this exam. BONES: Mild S-shaped thoracolumbar scoliosis and diffuse osteopenia are noted. CT SCAN OF THE ABDOMEN AND PELVIS: LIVER, GALLBLADDER, AND BILIARY TREE: The liver is normal in size, shape, and attenuation. No focal hepatic lesion on noncontrast imaging. No biliary ductal dilatation is present. The gallbladder is completely decompressed and not adequately assessed.. PANCREAS: Unremarkable on noncontrast imaging. SPLEEN, ADRENAL GLANDS: Unremarkable on noncontrast imaging. KIDNEYS AND URETERS: The kidneys are normal in size, shape, and attenuation. No hydronephrosis, hydroureter, or calculi seen. No perinephric stranding. BLADDER: Partially distended and unremarkable. PELVIC VISCERA: Again seen is a markedly enlarged and heterogeneous mass in the right hemiscrotum, incompletely visualized, corresponding to the enlarged heterogeneous testicle seen on prior ultrasound, suspicious for a testicular neoplasm. Prostate gland and seminal vesicles are unremarkable. GASTROINTESTINAL TRACT: Again seen is a large stool burden in the colon. The rectum is significantly dilated, measuring 6.7 cm in diameter and is filled with stool and residual contrast from prior rectal contrast administration. There is slight rectal and sigmoid colonic wall thickening and minimal surrounding mesenteric fat infiltration, suggesting fecal impaction and stercoral colitis. The small bowel loops are decompressed and unremarkable. The appendix is partially filled with fluid and air and is unremarkable. ABDOMINAL WALL: Several subcutaneous locules of air are seen, likely due to subcutaneous injection. LYMPH NODES, VASCULAR: Unremarkable. OSSEOUS STRUCTURES: Mild S-shaped thoracolumbar scoliosis and diffuse osteopenia are noted. A partially impacted minimally displaced left femoral neck fracture is again visualized. IMPRESSION: 1. Interval development of ill-defined airway associated nodular densities and diffuse groundglass opacities in the left lung and to a lesser extent in the posterior right upper lobe. Findings are suspicious for aspiration pneumonia. Associated small left-sided pleural effusion and dependent atelectasis are noted. 2. Large stool burden is seen throughout the colon and there is evidence of rectal fecal impaction and mild stercoral colitis involving the rectosigmoid colon. 3. Large incompletely imaged heterogeneous right testicular mass, suspicious for testicular neoplasm. 4. Minimally displaced subacute left femoral neck fracture. EXAM TYPE: US - US-TESTICULAR EXAMINATION: US SCROTUM CLINICAL INFORMATION: Right testicular swelling. Abnormal CT scan. Question mass. COMPARISON: CT scan of the pelvis from earlier today. TECHNIQUE: A sonogram of the scrotum was performed assessing moreno-scale appearance and color Doppler flow. Spectral analysis and Doppler interrogation was performed. FINDINGS: RIGHT: Right testicle is abnormally enlarged and measures 9.3 x 4.9 x 5.7 cm, volume 184.4 mL. Parenchymal echotexture is very heterogeneous with nodular parenchymal pattern seen. At least 3 discrete measurable testicular masses are seen, appearing hypoechoic with well-circumscribed margins and no intralesional flow, measuring 1.7 x 1.3 x 1.4 cm; 1.2 x 1.3 x 1.1 cm, and 0.7 x 1.0 x 1.4 cm. With color Doppler imaging, normal arterial and venous intratesticular flow is visualized. Multiple punctate parenchymal calcifications are seen. Right epididymal head is normal in size. No right hydrocele or varicocele is seen. There is a trace amount of free fluid around the right testicle. LEFT: Left testicle measures 3.8 x 2.0 x 2.4 cm, volume 13.0 mL. Parenchymal echotexture is normal. No focal testicular parenchymal lesions are visualized. The few punctate calcifications is seen in the testicular parenchyma, less numerous than on the contralateral side. Normal arterial and venous intratesticular flow is visualized. Left epididymal head is normal in size. No left varicocele is seen. There is a trace amount of free fluid around the left testicle. IMPRESSION: 1. Markedly enlarged heterogeneous and edematous right testicle is seen with complex nodular parenchymal pattern seen. Superimposed 3 discrete measurable hypoechoic masses are noted. Normal arterial and venous flow in the right testicle is seen. Findings are most suspicious for a nonseminomatous germ cell tumor or other neoplastic process such as primary or secondary testicular lymphoma or metastatic disease. Granulomatous diseases may have a similar appearance. Close clinical correlation is requested. 2. Bilateral testicular microlithiasis, right greater than left. 3. Left testicle otherwise unremarkable. 4. Bilateral epididymides are normal. Pertinent Lab Results: WBC: 9.3 HB: 7.8 Cr: 0.4 Disposition Summary Disposition Principal Diagnosis: Left femoral fracture (nondisplaced) Large testicular mass Additional Diagnosis: Cerebral Palsy Proctitis Seizure disorder Intellectual disability Chronic malnutrition Discharge Disposition: home or self care Discharge Instructions General Discharge Information Code Status: Full Code Patient's Diet: Regular diet Patient's Activity: The patient is bedbound on the baseline Follow-Up Instructions/Appts: Please follow-up with your urologist for the testicular mass Please follow-up with your GI doctor for previously diagnosed proctitis Please follow-up with your orthopedic surgeon, for the femoral fracture which is nondisplaced Please follow-up with your PCP Please continue on Augmentin and complete the course of antibiotic Please call your PCP if you notice any worsening of his condition, including fever, seizure, bloody diarrhea Medications at Discharge Discharge Medications: Stop taking the following medications: Amoxicillin/Potassium Clav (Augmentin 250-62.5 MG/5 Ml) 250 MG-62.5 MG/5 ML SUSP.RECON ORAL THREE TIMES DAILY Qty = 300 Continue taking these medications: Divalproex Sodium (Depakote Sprinkle) 125 MG CAP.SPRINK 7 Capsule ORAL THREE TIMES DAILY Qty = 210 Comments: Last Taken: 10/02/17 Time: 9AM Carbamazepine (Carbamazepine) 200 MG CPMP.12HR 2 Capsule ORAL TWICE DAILY Qty = 120 Comments: Last Taken:10/02/17 Time:0900 AM Lactose-Reduced Food (Ensure Liquid) 237 ML LIQUID 1 Can ORAL THREE TIMES DAILY Comments: Last Taken:10/02/17 Time:1200PM Start taking the following new medications: Polyethylene Glycol 3350 (Miralax) 17 GRAM/DOSE POWDER 17 Gram ORAL DAILY NEEDED Qty = 30 No Refills Instructions: Please give one per day Comments: Last Taken:10/01/17 Time:9PM Sennosides/Docusate Sodium (Senna Plus Tablet) 8.6 MG-50 MG TABLET 1 Tablet ORAL AT BEDTIME Qty = 30 No Refills Instructions: Please give one tablet at bedtime. Comments: Last Taken: 10/01/17 Time: 9PM Amoxicillin/Potassium Clav (Augmentin 250-62.5 MG/5 Ml) 250 MG-62.5 MG/5 ML SUSP.RECON 10 Milliliters ORAL TWICE DAILY Qty = 200 No Refills Na Phos,M-B/Na Phos,Di-Ba (Enema) 19 GRAM-7 GRAM/118 ML ENEMA 1 Enema RECTAL See Instructions Qty = 5 No Refills Instructions: Please give only as needed for constipation. The following medications have been changed: Old: Ibuprofen (Children's Motrin) 100 MG/5 ML ORAL.SUSP 20 Milliliters ORAL EVERY SIX HOURS NEEDED Qty = 800 New: Ibuprofen (Children's Motrin) 100 MG/5 ML ORAL.SUSP 20 Milliliters ORAL EVERY SIX HOURS NEEDED Qty = 800 Instructions: Please take as directed Copies To: Blaine MCCOY,Erica Attending MD Review Statement Documenting Attending: Miguel Mayorga MD Other Findings: Agree with the above summary and plan of care. The patient is being treated for aspiration pneumonia with Augmentin (responded to Unasyn). He passed swallow evaluation. Outpatient Urology follow-up for testicular mass.
== END 2017-10-02 14:53 | DRG 137 ==
LOC: ERH 17:49 → ERHI 09-28 14:38 → 2NA 09-28 14:38 → ENRESERV 09-28 15:31 → ENTRNSPT 09-28 16:06 → EDTRNSPT 09-28 16:18 → EDTRNSPTSTS 09-28 16:18 → CMPTRNSPT 09-28 16:40 → 2NA 10-01 08:08 → ENPENDDIS 10-02 14:09 → ENTRNSPT 10-02 14:36 → 2NA 10-02 14:53 → CMPTRNSPT 10-02 14:56
PROVIDERS: Student in an Organized Health Care Education/Training Program
DX: J69.0 Pneumonitis due to inhalation of food and vomit (principal); S72.002A Fracture of unspecified part of neck of left femur, initial encounter for closed fracture; G80.9 Cerebral palsy, unspecified; G40.909 Epilepsy, unspecified, not intractable, without status epilepticus; H55.00 Unspecified nystagmus; W06.XXXA Fall from bed, initial encounter; Z74.09 Other reduced mobility; Z99.3 Dependence on wheelchair; Z74.01 Bed confinement status; R64 Cachexia; Z68.1 Body mass index [BMI] 19.9 or less, adult; E87.2 Acidosis; E87.5 Hyperkalemia; F72 Severe intellectual disabilities; M24.552 Contracture, left hip; M24.551 Contracture, right hip; M24.562 Contracture, left knee; M24.561 Contracture, right knee; M24.522 Contracture, left elbow; M24.521 Contracture, right elbow; N50.9 Disorder of male genital organs, unspecified
CPT/HCPCS: ERO; 36415; 36592; 73502-LT; 74176; 74177; 81003; 82436; 84403; 87040; J1644; J2405; J7042

== ENCOUNTER → 2017-10-31 | Day surgery (SDC) | payer OTHER ==
[~2017-10-31] VITALS: Ht 154.9 cm; Wt 36.3 kg
[~2017-10-31] MED LIST changes: +ENEMA133 M1 RC; +MIRALAX119 GM PO; +SENNA PLUS TAB1 EACH PO
--- NOTE | 2017-10-31 14:05 | Operative Report ---
Operative/Inv Procedure Report Surgery Date: 10/31/17 Name of Procedure: Right Radical orchiectomy Pre-Operative Diagnosis: Right testicular mass Post-Operative Diagnosis: Same Estimated Blood Loss: scant Surgeon/Inspection Clerk: Reed Neil MD Anesthesia: laryngeal mask airway Drains: None Specimens: Right testicle and spermatic cord Complications: None Condition: Stable Operative Indication: Enlarging right testicular mass with scrotal ultrasound suspicious for testicular tumor Operative/Procedure Note Note: The patient was taken to the operating room and identified. Is placed in supine position on the operating table. A timeout was executed appropriately with the patient awake. General anesthesia was induced to LMA. Patient was left in the supine position and prepped and draped in usual fashion for scrotal and inguinal surgery. A surgical pause was executed appropriately. Incision was made parallel to and about 1 cm superior to the right inguinal ligament. Subcutaneous tissue was incised using the Bovie. The external oblique aponeurosis was identified and incised in direction of its fibers. The right spermatic cord was visualized and mobilized. Cremaster fibers were dissected off the cord and the cord was clamped with a Laya clamp. Next the cord was skeletonized distally. Attempt was made to deliver the right testicle into the inguinal wound however the incision was too small to deliver the mass to the inguinal area. Therefore the incision was extended about 1/2 cm at this point. The right testicle was then brought up into the inguinal incision by inverting the scrotum. The gubernaculum was identified and incised using the Bovie. This freed up the right testicle from the scrotum. A second Laya clamp was placed on the spermatic cord just proximal to the first 1. The cord was amputated between the 2 clamps. The stump of the cord was then controlled with a 0 silk suture ligature. Proximal to this a 0 silk tie was placed. This was at the level of the internal ring. At this point the wound was inspected for bleeding. No significant bleeding was noted. Minor bleeders were controlled with electrocautery. Next the external oblique aponeurosis approximated with 3-0 chromic running sutures. The Julian's fascia was then approximated with 3-0 chromic running sutures. The skin was closed with a subcuticular 5-0 Vicryl. Local anesthesia was placed in the skin incision. This was 1% lidocaine. Mastisol, Steri-Strips, Telfa and Tegaderm were then placed. The patient tolerated the procedure well and completion was taken to recovery room in stable condition. Sponge needle Edgemon count reported correct at the end of the procedure by the scrub nurse. Findings: Diffusely enlarged right testicle Discharge Disposition: PACU
== END ==
LOC: STS 02:53
DX: C62.91 Malignant neoplasm of right testis, unspecified whether descended or undescended (principal); G80.1 Spastic diplegic cerebral palsy; R56.9 Unspecified convulsions; F79 Unspecified intellectual disabilities; K62.89 Other specified diseases of anus and rectum
CPT/HCPCS: J0131; J0690; J2001; J2250; J2405